=== PATIENT | male | born 1970 | race African-American/Black ===

== ENCOUNTER 2021-02-01 14:47 | Inpatient (IN) | payer OTHER ==
[2021-02-01 15:17] VITALS: BMI 27.1
[2021-02-01] MEDS ORDERED: ACETAMINOPHEN 1000 MG/100 ML VIAL (NON FORMULARY) IVPB ONE (15:26)
[2021-02-01] MEDS ORDERED: VANCOMYCIN 1 GM in D5W (PRE-DOCKED) 1,000 MG/250 ML IVPB ONE (15:37)
[2021-02-01] MEDS ORDERED: PIPERACILLIN/TAZOB 4.5 GM 4.5 GM in DEXTROSE 5%-WATER 100 ML IVPB ONE (15:37)
[2021-02-01] MEDS ORDERED: ACETAMINOPHEN INJECTION 100 ML IVPB ONE (16:01)
[2021-02-01] MEDS: SODIUM CHLORIDE 2,504 ML IV ONE ×2 (16:07→17:04)
[2021-02-01 16:26] LABS: BASO % 0.2 % (0-2.0); HEMATOCRIT 40.8 % (35.4-49); HEMOGLOBIN 14.3 GM/dL (11.7-16.9); LYMPH % 4.4 % (8-40); MCHC 34.9 g/dl (32.0-35.9); MEAN CELL VOLUME 88.7 fl (80-96); MEAN PLT VOLUME 8.8 fl (7.5-11.1); MONO % 5.6 % (3.8-10.2); NEUT % 89.8 % (42.8-82.8); PLATELET COUNT 257 10^3/uL (134-434); RDW 14.6 % (11.9-15.9); WHITE BLOOD COUNT 18.5 K/mm3 (4.0-10.0)
[2021-02-01 16:39] LABS: INR 1.46 (0.83-1.09); PROTHROMBIN TIME (PATIENT) 17.8 SEC (9.7-13.0)
[2021-02-01 16:42] LABS: ACTIVATED PTT 33.3 SECONDS (25.2-36.5)
[2021-02-01 16:52] LABS: ALBUMIN 3.1 g/dl (3.4-5.0)
[2021-02-01 16:57] LABS: BILIRUBIN,TOTAL 1.8 mg/dL (0.2-1); CREATININE 2.2 mg/dL (0.55-1.3)
[2021-02-01] MEDS ORDERED: SODIUM CHLORIDE 0.9% 500 ML INFUS.BAG IV ONE ×2 (16:59→22:48)
[2021-02-01 17:07] LABS: LACTIC ACID 2.8 mmol/L (0.4-2.0)
[2021-02-01] MEDS ORDERED: PIPERACILLIN/TAZOB 4.5 GM 4.5 GM/100 ML BAG IVPB ONE (17:17)
[2021-02-01] MEDS ORDERED: VANCOMYCIN 1 GRAM (PRE-DOCKED) 1,000 MG/250 ML BAG IVPB ONE ×2 (17:18→18:28)
[2021-02-01 19:47] LABS: EPI CELLS 28 /uL (0-25.1); HYALINE CASTS 6 /uL (0-3.1); URINE APPEARANCE TURBID; URINE BACTERIA 7336 /uL (0-1359); URINE BILIRUBIN NEGATIVE (NEGATIVE); URINE COLOR ORANGE; URINE GLUCOSE (UA) NEGATIVE (NEGATIVE); URINE KETONE NEGATIVE (NEGATIVE); URINE LEUK ESTERASE 3+ (NEGATIVE); URINE NITRITE NEGATIVE (NEGATIVE); URINE PROTEIN 2+ (NEGATIVE); URINE RBC 53 /uL (0-23.9); URINE WBC 7008 /uL (0-25.8)
[2021-02-01 20:13] LABS: YEAST NEGATIVE (NEGATIVE)
[2021-02-01 21:19] LABS: ANION GAP 13 MMOL/L (8-16); CALCIUM 7.9 mg/dL (8.5-10.1); CHLORIDE 92 mmol/L (98-107); CO2 20 mmol/L (21-32); SODIUM 126 mmol/L (136-145)
[2021-02-01 21:21] LABS: GLUCOSE,RANDOM 119 mg/dL (74-106)
[2021-02-01] MEDS ORDERED: POTASSIUM CHLORIDE TABS 10 MEQ TABLET.ER (FP) PO ONE (21:44)
[2021-02-01] MEDS ORDERED: POTASSIUM CHLORIDE ORAL LIQUID 20 MEQ/15 ML PO ONE (22:35)
[2021-02-01] MEDS ORDERED: BACLOFEN 10 MG TABLET (FP) PO ONE (22:41)
[2021-02-01] MEDS ORDERED: LORazepam 2 MG/ML SDV VIAL IVPUSH ONE (22:42)
[2021-02-01] MEDS ORDERED: LORazepam 2 MG/ML SDV VIAL ONE (23:00)
[2021-02-01] MEDS ORDERED: POTASSIUM CHLORIDE ORAL LIQUID 20 MEQ/15 ML ONE (23:01)
[2021-02-01] MEDS ORDERED: BACLOFEN 10 MG TABLET (FP) ONE (23:01)
[2021-02-01] MEDS ORDERED: VANCOMYCIN/WATER BAGS 1,250 MG/250 ML BAG IVPB SCH (23:30)
[2021-02-01] MEDS ORDERED: SODIUM CHLORIDE 1,000 ML IV SCH (23:30)
[2021-02-02] MEDS ORDERED: PIPERACILLIN/TAZOB 3.375 GM 3.375 GM/50 ML BAG IVPB ONE ×4 (00:35→21:36)
[2021-02-02] MEDS: PIPERACILLIN/TAZOB 3.375 GM 3.375 GM/50 ML BAG IVPB SCH ×2 (00:41→07:20)
[2021-02-02 00:52] LABS: CHLORIDE 94 mmol/L (98-107); SODIUM 129 mmol/L (136-145)
[2021-02-02 00:54] LABS: ANION GAP 9 MMOL/L (8-16); BLOOD UREA NITROGEN 21.6 mg/dL (7-18); CALCIUM 8.1 mg/dL (8.5-10.1); CO2 26 mmol/L (21-32); MAGNESIUM 1.6 mg/dL (1.8-2.4)
[2021-02-02 00:55] LABS: GLUCOSE,RANDOM 100 mg/dL (74-106)
[2021-02-02 00:58] LABS: CREATININE 1.8 mg/dL (0.55-1.3)
[2021-02-02] MEDS: VANCOMYCIN/WATER BAGS 1,250 MG/250 ML BAG IVPB SCH (01:41)
[2021-02-02] MEDS ORDERED: POTASSIUM CHLORIDE TABS 20 MEQ TABLET.ER (FP) PO ONE ×2 (01:54→07:10)
[2021-02-02] MEDS ORDERED: KCL 10 MEQ IVPB 10 MEQ/100 ML INFUS.BAG IVPB SCH (02:00)
[2021-02-02 02:36] LABS: CHOLESTEROL 122 mg/dL (50-200); TRIGLYCERIDES 76 mg/dL (0-150)
[2021-02-02 02:37] LABS: HDL CHOLESTEROL 35 mg/dL (40-60); LDL CHOLESTEROL (ONLY SJRH) 70 mg/dL (5-100)
[2021-02-02] MEDS ORDERED: ACETAMINOPHEN 1000 MG/100 ML VIAL (NON FORMULARY) IVPB ONE ×2 (03:51→11:01)
[2021-02-02] MEDS ORDERED: ACETAMINOPHEN INJECTION 100 ML IVPB ONE ×2 (04:02→10:08)
[2021-02-02] MEDS ORDERED: POTASSIUM CHLORIDE ORAL LIQUID 20 MEQ/15 ML ONE (04:02)
[2021-02-02] MEDS ORDERED: KCL 10 MEQ IVPB 10 MEQ/100 ML INFUS.BAG IVPB ONE (04:03)
[2021-02-02] MEDS ORDERED: TRIMETHOBENZAMIDE HCL 200MG/2ML INJ IM ONE (05:16)
[2021-02-02] MEDS ORDERED: HEPARIN NA (PORCINE) 5,000 UNITS/ML 1ML VIAL ONE ×3 (07:10→21:36)
[2021-02-02] MEDS: HEPARIN NA (PORCINE) 5,000 UNITS/ML 1ML VIAL SQ SCH ×3 (07:16→22:32)
[2021-02-02 08:18] LABS: HEMATOCRIT 40.2 % (35.4-49); HEMOGLOBIN 13.5 GM/dL (11.7-16.9); MCH 30.2 pg (25.7-33.7); MCHC 33.5 g/dl (32.0-35.9); MEAN CELL VOLUME 90.2 fl (80-96); PLATELET COUNT 209 10^3/uL (134-434); RBC 4.46 M/mm3 (4.00-5.60); RDW 14.7 % (11.9-15.9); WHITE BLOOD COUNT 18.2 K/mm3 (4.0-10.0)
[2021-02-02 08:22] LABS: ALBUMIN 2.6 g/dl (3.4-5.0); BLOOD UREA NITROGEN 21.8 mg/dL (7-18); CALCIUM 8.5 mg/dL (8.5-10.1); MAGNESIUM 1.8 mg/dL (1.8-2.4)
[2021-02-02 08:25] LABS: CREATININE 1.7 mg/dL (0.55-1.3)
[2021-02-02 08:26] LABS: BILIRUBIN,TOTAL 1.6 mg/dL (0.2-1); PHOSPHOROUS 3.5 mg/dL (2.5-4.9)
[2021-02-02 08:27] LABS: TOT PROT 6.8 g/dl (6.4-8.2)
[2021-02-02] MEDS ORDERED: PROCHLORPERAZINE INJECTION 10 MG/2 ML VIAL IVPB ONE (11:01)
[2021-02-02 11:38] LABS: ANISOCYTOSIS 0; MACROCYTOSIS 0; PLATELET ESTIMATE NORMAL
[2021-02-02] MEDS ORDERED: PROCHLORPERAZINE INJECTION 10 MG/2 ML VIAL ONE (12:13)
[2021-02-02] MEDS ORDERED: SODIUM CHLORIDE 1,000 ML IV SCH ×2 (12:30→13:15)
[2021-02-02] MEDS ORDERED: DEXTROSE 5%-WATER - 1,000 ML IV SCH (12:30)
[2021-02-02] MEDS: PIPERACILLIN/TAZOB 3.375 GM 3.375 GM in DEXTROSE 5%-WATER - 50 ML IVPB SCH ×2 (13:01→22:32)
[2021-02-02 13:14] LABS: BLOOD UREA NITROGEN 23.4 mg/dL (7-18); CALCIUM 8.2 mg/dL (8.5-10.1)
[2021-02-02 13:17] LABS: CREATININE 1.5 mg/dL (0.55-1.3)
[2021-02-02] MEDS: SODIUM CHLORIDE 0.45% 1,000 ML IV SCH (13:45)
[2021-02-02] MEDS ORDERED: ASPIRIN COATED 81 MG TABLET.EC ONE (14:43)
[2021-02-02] MEDS: ERGOCALCIFEROL (VIT D2) 50,000 UNIT (1.25 MG) CAPSULE PO SCH (14:56)
[2021-02-02] MEDS: ASPIRIN COATED 81 MG TABLET.EC PO SCH (14:56)
[2021-02-02] MEDS: MIDODRINE HCL 5 MG TABLET PO SCH ×2 (14:57→21:29)
[2021-02-02 18:20] LABS: CALCIUM 8.6 mg/dL (8.5-10.1)
[2021-02-02 18:23] LABS: CREATININE 1.4 mg/dL (0.55-1.3)
[2021-02-02] MEDS ORDERED: ATORVASTATIN CA 40 MG TABLET (FP) ONE (21:36)
[2021-02-02] MEDS ORDERED: BACLOFEN 10 MG TABLET (FP) ONE (21:36)
[2021-02-02] MEDS ORDERED: PATIENT'S OWN MEDICATION (NON-FORMULARY) (Diclofenac Sodium [Voltaren] 100 GM Gel..Gram.) TP SCH (22:00)
[2021-02-02] MEDS ORDERED: BACLOFEN 10 MG TABLET (FP) PO SCH (22:00)
[2021-02-02] MEDS ORDERED: PATIENT'S OWN MEDICATION (NON-FORMULARY) (Midodrine Hcl [Midodrine Hcl] 10 MG) PO SCH (22:00)
[2021-02-02] MEDS ORDERED: PATIENT'S OWN MEDICATION (NON-FORMULARY) (Midodrine Hcl [Midodrine Hcl] 10 MG Tablet) PO SCH (22:00)
[2021-02-02] MEDS: ATORVASTATIN CA 40 MG TABLET (FP) PO SCH (22:32)
[2021-02-02] MEDS: BACLOFEN 10 MG TABLET (FP) PO SCH (22:32)
[2021-02-03] MEDS: PIPERACILLIN/TAZOB 3.375 GM 3.375 GM in DEXTROSE 5%-WATER - 50 ML IVPB SCH ×6 (02:16→20:07)
[2021-02-03] MEDS: VANCOMYCIN/WATER BAGS 1,250 MG/250 ML BAG IVPB SCH ×3 (02:16→10:31)
[2021-02-03] MEDS ORDERED: ACETAMINOPHEN 1000 MG/100 ML VIAL (NON FORMULARY) IVPB ONE (02:51)
[2021-02-03] MEDS ORDERED: PIPERACILLIN/TAZOBACTAM 3.375 GM VIAL IVPB ONE ×5 (03:05→19:26)
[2021-02-03] MEDS ORDERED: DEXTROSE 5%-WATER - 50 ML IVPB ONE ×5 (03:05→19:26)
[2021-02-03] MEDS: HEPARIN NA (PORCINE) 5,000 UNITS/ML 1ML VIAL SQ SCH ×3 (06:25→21:05)
[2021-02-03] MEDS: SIMETHICONE 80 MG TAB.CHEW (FP) PO PRN ×2 (06:49→13:32)
[2021-02-03] MEDS ORDERED: PT OWN MED DRAWER 7, Y5N ONE ×3 (06:54→20:35)
[2021-02-03] MEDS: BACLOFEN 10 MG TABLET (FP) PO SCH ×3 (07:12→21:05)
[2021-02-03 09:06] LABS: ALBUMIN 2.3 g/dl (3.4-5.0); BLOOD UREA NITROGEN 18.2 mg/dL (7-18)
[2021-02-03 09:08] LABS: CALCIUM 8.5 mg/dL (8.5-10.1)
[2021-02-03 09:09] LABS: BILIRUBIN,TOTAL 1.2 mg/dL (0.2-1); CREATININE 1.2 mg/dL (0.55-1.3); TOT PROT 6.3 g/dl (6.4-8.2)
[2021-02-03] MEDS ORDERED: POTASSIUM CHLORIDE TABS 20 MEQ TABLET.ER (FP) PO SCH (10:00)
[2021-02-03] MEDS: ASCORBIC ACID 500 MG TABLET (FP) PO SCH (10:16)
[2021-02-03] MEDS: ASPIRIN COATED 81 MG TABLET.EC PO SCH (10:17)
[2021-02-03] MEDS: MIDODRINE HCL 5 MG TABLET PO SCH ×2 (10:17→13:31)
[2021-02-03] MEDS: KCL 10 MEQ IVPB 10 MEQ/100 ML INFUS.BAG IVPB SCH ×3 (10:29→15:09)
[2021-02-03] MEDS ORDERED: POTASSIUM CHLORIDE TABS 20 MEQ TABLET.ER (FP) PO ONE (10:30)
[2021-02-03] MEDS: FAMOTIDINE 40 MG TABLET PO SCH (12:59)
[2021-02-03] MEDS: SODIUM CHLORIDE 0.45% 1,000 ML IV SCH (13:32)
[2021-02-03] MEDS ORDERED: MIDODRINE HCL 5 MG TABLET PO SCH (16:02)
[2021-02-03] MEDS: LORazepam 0.5 MG TABLET PO PRN (20:55)
[2021-02-03] MEDS ORDERED: MIDODRINE HCL 5 MG TABLET PO ONE (21:00)
[2021-02-03] MEDS: ATORVASTATIN CA 40 MG TABLET (FP) PO SCH (21:05)
[2021-02-04 00:46] LABS: MAGNESIUM 1.9 mg/dL (1.8-2.4)
[2021-02-04 00:50] LABS: PHOSPHOROUS 2.5 mg/dL (2.5-4.9)
[2021-02-04] MEDS ORDERED: PIPERACILLIN/TAZOBACTAM 3.375 GM VIAL IVPB ONE ×4 (01:46→20:36)
[2021-02-04] MEDS ORDERED: DEXTROSE 5%-WATER - 50 ML IVPB ONE ×4 (01:46→20:36)
[2021-02-04] MEDS: PIPERACILLIN/TAZOB 3.375 GM 3.375 GM in DEXTROSE 5%-WATER - 50 ML IVPB SCH ×4 (03:04→20:39)
[2021-02-04] MEDS: HEPARIN NA (PORCINE) 5,000 UNITS/ML 1ML VIAL SQ SCH ×3 (06:31→21:12)
[2021-02-04] MEDS: BACLOFEN 10 MG TABLET (FP) PO SCH ×3 (06:31→21:11)
[2021-02-04] MEDS: MIDODRINE HCL 5 MG TABLET PO SCH ×3 (08:46→20:39)
[2021-02-04] MEDS: AMINO ACIDS/PROTEIN HYDROLYS 30 ML LIQUID.PKT PO SCH (08:46)
[2021-02-04 08:49] LABS: BASO % 0.3 % (0-2.0); EOS % 0.6 % (0-4.5); HEMATOCRIT 32.4 % (35.4-49); LYMPH % 5.3 % (8-40); MCH 30.2 pg (25.7-33.7); MCHC 33.9 g/dl (32.0-35.9); MEAN CELL VOLUME 89.2 fl (80-96); MEAN PLT VOLUME 7.9 fl (7.5-11.1); MONO % 8.4 % (3.8-10.2); NEUT % 85.4 % (42.8-82.8); PLATELET COUNT 218 10^3/uL (134-434); RBC 3.63 M/mm3 (4.00-5.60); RDW 14.5 % (11.9-15.9); WHITE BLOOD COUNT 9.9 K/mm3 (4.0-10.0)
[2021-02-04 09:33] LABS: BILIRUBIN,TOTAL 0.6 mg/dL (0.2-1); BLOOD UREA NITROGEN 8.7 mg/dL (7-18); CREATININE 0.9 mg/dL (0.55-1.3); TOT PROT 5.6 g/dl (6.4-8.2)
[2021-02-04] MEDS ORDERED: PT OWN MED DRAWER 7, Y5N ONE ×3 (09:45→20:38)
[2021-02-04] MEDS: ASCORBIC ACID 500 MG TABLET (FP) PO SCH (09:52)
[2021-02-04] MEDS: ASPIRIN COATED 81 MG TABLET.EC PO SCH (09:52)
[2021-02-04] MEDS: FAMOTIDINE 40 MG TABLET PO SCH (09:52)
[2021-02-04] MEDS ORDERED: POTASSIUM CHLORIDE TABS 20 MEQ TABLET.ER (FP) PO ONE (14:26)
[2021-02-04] MEDS: SODIUM CHLORIDE 1,000 ML IV SCH (17:14)
[2021-02-04] MEDS ORDERED: MIDODRINE HCL 5 MG TABLET PO ONE (20:44)
[2021-02-04] MEDS: ATORVASTATIN CA 40 MG TABLET (FP) PO SCH (21:11)
[2021-02-04] MEDS: SIMETHICONE 80 MG TAB.CHEW (FP) PO PRN (21:15)
[2021-02-05] MEDS ORDERED: DEXTROSE 5%-WATER - 50 ML IVPB ONE ×4 (00:44→20:05)
[2021-02-05] MEDS ORDERED: PIPERACILLIN/TAZOBACTAM 3.375 GM VIAL IVPB ONE ×4 (00:44→20:05)
[2021-02-05] MEDS: PIPERACILLIN/TAZOB 3.375 GM 3.375 GM in DEXTROSE 5%-WATER - 50 ML IVPB SCH ×4 (02:40→20:28)
[2021-02-05] MEDS: LORazepam 0.5 MG TABLET PO PRN ×2 (03:19→21:25)
[2021-02-05] MEDS: BACLOFEN 10 MG TABLET (FP) PO SCH ×3 (06:26→21:24)
[2021-02-05] MEDS: HEPARIN NA (PORCINE) 5,000 UNITS/ML 1ML VIAL SQ SCH ×3 (06:26→21:24)
[2021-02-05] MEDS: SODIUM CHLORIDE 1,000 ML IV SCH ×2 (06:29→13:58)
[2021-02-05 07:19] LABS: HEMOGLOBIN 11.1 GM/dL (11.7-16.9); MCH 29.9 pg (25.7-33.7); MCHC 33.7 g/dl (32.0-35.9); MEAN CELL VOLUME 88.5 fl (80-96); MEAN PLT VOLUME 8.3 fl (7.5-11.1); PLATELET COUNT 255 10^3/uL (134-434); RBC 3.73 M/mm3 (4.00-5.60); RDW 14.6 % (11.9-15.9); WHITE BLOOD COUNT 7.8 K/mm3 (4.0-10.0)
[2021-02-05 07:48] LABS: CALCIUM 7.8 mg/dL (8.5-10.1)
[2021-02-05 07:49] LABS: ALBUMIN 2.1 g/dl (3.4-5.0); BLOOD UREA NITROGEN 6.3 mg/dL (7-18); MAGNESIUM 1.5 mg/dL (1.8-2.4)
[2021-02-05 08:53] LABS: ANISOCYTOSIS 0; HELMET CELLS 0; HOWELL-JOLLY BODIES 0; MACROCYTOSIS 0; OVALOCYTE 0; PLATELET ESTIMATE NORMAL; ROULEAU 0; SICKELED CELLS 0; TARGET CELLS 0; TEAR DROP CELLS 0; TOXIC GRANULATION 0
[2021-02-05] MEDS ORDERED: MAGNESIUM SULF 50% (8.12 MEQ/2 ML-1 GM VIAL) IVPB ONE ×2 (08:56→12:14)
[2021-02-05] MEDS ORDERED: PT OWN MED DRAWER 7, Y5N ONE ×4 (09:26→20:43)
[2021-02-05] MEDS: ASPIRIN COATED 81 MG TABLET.EC PO SCH (09:35)
[2021-02-05] MEDS: MIDODRINE HCL 5 MG TABLET PO SCH ×3 (09:35→20:28)
[2021-02-05] MEDS: ASCORBIC ACID 500 MG TABLET (FP) PO SCH (09:35)
[2021-02-05] MEDS: POTASSIUM CHLORIDE TABS 20 MEQ TABLET.ER (FP) PO SCH ×2 (09:35→21:25)
[2021-02-05] MEDS: FAMOTIDINE 40 MG TABLET PO SCH (09:35)
[2021-02-05] MEDS: AMINO ACIDS/PROTEIN HYDROLYS 30 ML LIQUID.PKT PO SCH (09:37)
[2021-02-05] MEDS: SODIUM CHLORIDE 0.45% 1,000 ML IV SCH (09:48)
[2021-02-05] MEDS ORDERED: MAGNESIUM OXIDE 400 MG TABLET (FP) PO ONE (12:14)
[2021-02-05] MEDS: SIMETHICONE 80 MG TAB.CHEW (FP) PO PRN (21:24)
[2021-02-05] MEDS: ATORVASTATIN CA 40 MG TABLET (FP) PO SCH (21:25)
[2021-02-06] MEDS ORDERED: PIPERACILLIN/TAZOBACTAM 3.375 GM VIAL IVPB ONE ×4 (02:25→21:08)
[2021-02-06] MEDS ORDERED: DEXTROSE 5%-WATER - 50 ML IVPB ONE ×4 (02:25→21:08)
[2021-02-06] MEDS: PIPERACILLIN/TAZOB 3.375 GM 3.375 GM in DEXTROSE 5%-WATER - 50 ML IVPB SCH ×4 (03:10→21:24)
[2021-02-06] MEDS: HEPARIN NA (PORCINE) 5,000 UNITS/ML 1ML VIAL SQ SCH ×3 (06:11→21:24)
[2021-02-06] MEDS: BACLOFEN 10 MG TABLET (FP) PO SCH ×3 (06:11→21:24)
[2021-02-06] MEDS: SODIUM CHLORIDE 1,000 ML IV SCH ×2 (06:11→13:50)
[2021-02-06 06:46] LABS: BASO % 0.5 % (0-2.0); EOS % 3.4 % (0-4.5); HEMATOCRIT 33.5 % (35.4-49); HEMOGLOBIN 11.4 GM/dL (11.7-16.9); LYMPH % 12.7 % (8-40); MCH 30.5 pg (25.7-33.7); MEAN CELL VOLUME 89.5 fl (80-96); MEAN PLT VOLUME 7.7 fl (7.5-11.1); NEUT % 71.4 % (42.8-82.8); PLATELET COUNT 294 10^3/uL (134-434); RBC 3.75 M/mm3 (4.00-5.60); RDW 14.3 % (11.9-15.9); WHITE BLOOD COUNT 7.5 K/mm3 (4.0-10.0)
[2021-02-06 07:15] LABS: CALCIUM 8.3 mg/dL (8.5-10.1)
[2021-02-06 07:16] LABS: ALBUMIN 2.2 g/dl (3.4-5.0); BLOOD UREA NITROGEN 4.7 mg/dL (7-18); MAGNESIUM 1.9 mg/dL (1.8-2.4)
[2021-02-06 07:19] LABS: PHOSPHOROUS 2.7 mg/dL (2.5-4.9)
[2021-02-06 07:20] LABS: BILIRUBIN,TOTAL 0.5 mg/dL (0.2-1); TOT PROT 6.2 g/dl (6.4-8.2)
[2021-02-06] MEDS: MIDODRINE HCL 5 MG TABLET PO SCH ×3 (08:52→21:24)
[2021-02-06] MEDS: AMINO ACIDS/PROTEIN HYDROLYS 30 ML LIQUID.PKT PO SCH (08:52)
[2021-02-06] MEDS: hydrOXYzine PAMOATE 25 MG CAPSULE (FP) PO PRN ×2 (08:53→15:20)
[2021-02-06] MEDS: SIMETHICONE 80 MG TAB.CHEW (FP) PO PRN (08:58)
[2021-02-06] MEDS: ASPIRIN COATED 81 MG TABLET.EC PO SCH (10:30)
[2021-02-06] MEDS: ASCORBIC ACID 500 MG TABLET (FP) PO SCH (10:30)
[2021-02-06] MEDS: FAMOTIDINE 40 MG TABLET PO SCH (10:31)
[2021-02-06] MEDS ORDERED: POTASSIUM CHLORIDE TABS 20 MEQ TABLET.ER (FP) PO ONE (13:25)
[2021-02-06] MEDS ORDERED: LOPERAMIDE HCL 2 MG CAPSULE PO PRN (13:47)
[2021-02-06 16:22] LABS: BLOOD UREA NITROGEN 5.3 mg/dL (7-18); CALCIUM 8.6 mg/dL (8.5-10.1)
[2021-02-06 16:25] LABS: CREATININE 0.9 mg/dL (0.55-1.3)
[2021-02-06] MEDS ORDERED: PT OWN MED DRAWER 7, Y5N ONE (21:08)
[2021-02-06] MEDS: ATORVASTATIN CA 40 MG TABLET (FP) PO SCH (21:24)
[2021-02-06] MEDS: LORazepam 0.5 MG TABLET PO PRN (22:45)
[2021-02-07] MEDS ORDERED: DEXTROSE 5%-WATER - 50 ML IVPB ONE ×4 (02:33→21:01)
[2021-02-07] MEDS ORDERED: PIPERACILLIN/TAZOBACTAM 3.375 GM VIAL IVPB ONE ×4 (02:33→21:01)
[2021-02-07] MEDS: SIMETHICONE 80 MG TAB.CHEW (FP) PO PRN (02:45)
[2021-02-07] MEDS: PIPERACILLIN/TAZOB 3.375 GM 3.375 GM in DEXTROSE 5%-WATER - 50 ML IVPB SCH ×4 (02:45→21:14)
[2021-02-07] MEDS ORDERED: PT OWN MED DRAWER 7, Y5N ONE ×5 (05:32→21:01)
[2021-02-07] MEDS: BACLOFEN 10 MG TABLET (FP) PO SCH ×3 (05:34→21:13)
[2021-02-07] MEDS: HEPARIN NA (PORCINE) 5,000 UNITS/ML 1ML VIAL SQ SCH ×3 (05:34→21:14)
[2021-02-07] MEDS: AMINO ACIDS/PROTEIN HYDROLYS 30 ML LIQUID.PKT PO SCH (08:41)
[2021-02-07] MEDS: MIDODRINE HCL 5 MG TABLET PO SCH ×3 (08:41→21:13)
[2021-02-07 11:04] LABS: BASO % 0.9 % (0-2.0); EOS % 3.9 % (0-4.5); HEMATOCRIT 32.2 % (35.4-49); HEMOGLOBIN 10.8 GM/dL (11.7-16.9); LYMPH % 15.5 % (8-40); MCH 30.6 pg (25.7-33.7); MCHC 33.6 g/dl (32.0-35.9); MEAN CELL VOLUME 91.2 fl (80-96); MEAN PLT VOLUME 7.9 fl (7.5-11.1); MONO % 9.3 % (3.8-10.2); NEUT % 70.4 % (42.8-82.8); PLATELET COUNT 329 10^3/uL (134-434); RBC 3.53 M/mm3 (4.00-5.60); RDW 14.5 % (11.9-15.9); WHITE BLOOD COUNT 7.5 K/mm3 (4.0-10.0)
[2021-02-07] MEDS ORDERED: POTASSIUM CHLORIDE TABS 20 MEQ TABLET.ER (FP) PO ONE (13:15)
[2021-02-07 13:56] LABS: ALBUMIN 2.2 g/dl (3.4-5.0); CALCIUM 8.5 mg/dL (8.5-10.1)
[2021-02-07 13:57] LABS: MAGNESIUM 1.6 mg/dL (1.8-2.4)
[2021-02-07 14:00] LABS: CREATININE 0.9 mg/dL (0.55-1.3); PHOSPHOROUS 2.9 mg/dL (2.5-4.9)
[2021-02-07 14:02] LABS: BILIRUBIN,TOTAL 0.5 mg/dL (0.2-1); TOT PROT 6.5 g/dl (6.4-8.2)
[2021-02-07] MEDS: ASCORBIC ACID 500 MG TABLET (FP) PO SCH (15:14)
[2021-02-07] MEDS: FAMOTIDINE 40 MG TABLET PO SCH (15:14)
[2021-02-07] MEDS: ASPIRIN COATED 81 MG TABLET.EC PO SCH (15:14)
[2021-02-07] MEDS: POTASSIUM CHLORIDE 10 MEQ in SODIUM CHLORIDE 1,000 ML IV SCH (15:15)
[2021-02-07] MEDS: LORazepam 0.5 MG TABLET PO PRN (21:13)
[2021-02-07] MEDS: ATORVASTATIN CA 40 MG TABLET (FP) PO SCH (21:13)
[2021-02-08] MEDS ORDERED: DEXTROSE 5%-WATER - 50 ML IVPB ONE ×4 (02:32→20:51)
[2021-02-08] MEDS ORDERED: PIPERACILLIN/TAZOBACTAM 3.375 GM VIAL IVPB ONE ×4 (02:32→20:51)
[2021-02-08] MEDS: PIPERACILLIN/TAZOB 3.375 GM 3.375 GM in DEXTROSE 5%-WATER - 50 ML IVPB SCH ×4 (02:37→21:05)
[2021-02-08] MEDS ORDERED: PT OWN MED DRAWER 7, Y5N ONE (05:50)
[2021-02-08] MEDS: HEPARIN NA (PORCINE) 5,000 UNITS/ML 1ML VIAL SQ SCH ×3 (07:04→21:06)
[2021-02-08] MEDS: BACLOFEN 10 MG TABLET (FP) PO SCH ×3 (07:04→21:07)
[2021-02-08] MEDS: MIDODRINE HCL 5 MG TABLET PO SCH ×3 (08:49→21:06)
[2021-02-08] MEDS: AMINO ACIDS/PROTEIN HYDROLYS 30 ML LIQUID.PKT PO SCH (08:49)
[2021-02-08] MEDS: ASPIRIN COATED 81 MG TABLET.EC PO SCH (09:16)
[2021-02-08] MEDS: FAMOTIDINE 40 MG TABLET PO SCH (09:17)
[2021-02-08] MEDS: ASCORBIC ACID 500 MG TABLET (FP) PO SCH (09:17)
[2021-02-08 12:19] LABS: EOS % 4.2 % (0-4.5); HEMATOCRIT 31.6 % (35.4-49); HEMOGLOBIN 10.7 GM/dL (11.7-16.9); LYMPH % 19.5 % (8-40); MCHC 33.8 g/dl (32.0-35.9); MEAN CELL VOLUME 88.8 fl (80-96); MEAN PLT VOLUME 7.2 fl (7.5-11.1); NEUT % 64.3 % (42.8-82.8); PLATELET COUNT 403 10^3/uL (134-434); RBC 3.56 M/mm3 (4.00-5.60); RDW 14.4 % (11.9-15.9); WHITE BLOOD COUNT 6.1 K/mm3 (4.0-10.0)
[2021-02-08 12:47] LABS: CALCIUM 8.5 mg/dL (8.5-10.1)
[2021-02-08 12:48] LABS: BLOOD UREA NITROGEN 5.2 mg/dL (7-18); MAGNESIUM 1.5 mg/dL (1.8-2.4)
[2021-02-08 12:51] LABS: CREATININE 0.8 mg/dL (0.55-1.3); PHOSPHOROUS 2.8 mg/dL (2.5-4.9)
[2021-02-08] MEDS ORDERED: MAGNESIUM SULF 50% (8.12 MEQ/2 ML-1 GM VIAL) IVPB ONE (13:15)
[2021-02-08] MEDS: SIMETHICONE 80 MG TAB.CHEW (FP) PO PRN (21:07)
[2021-02-08] MEDS: ATORVASTATIN CA 40 MG TABLET (FP) PO SCH ×2 (21:07→21:38)
[2021-02-08] MEDS: LORazepam 0.5 MG TABLET PO PRN (21:11)
[2021-02-09] MEDS ORDERED: PIPERACILLIN/TAZOBACTAM 3.375 GM VIAL IVPB ONE ×4 (00:59→21:05)
[2021-02-09] MEDS ORDERED: DEXTROSE 5%-WATER - 50 ML IVPB ONE ×4 (01:00→21:05)
[2021-02-09] MEDS: POTASSIUM CHLORIDE 10 MEQ in SODIUM CHLORIDE 1,000 ML IV SCH ×2 (02:08→06:03)
[2021-02-09] MEDS: PIPERACILLIN/TAZOB 3.375 GM 3.375 GM in DEXTROSE 5%-WATER - 50 ML IVPB SCH ×4 (02:16→21:10)
[2021-02-09] MEDS: HEPARIN NA (PORCINE) 5,000 UNITS/ML 1ML VIAL SQ SCH ×3 (06:17→21:10)
[2021-02-09] MEDS: BACLOFEN 10 MG TABLET (FP) PO SCH ×3 (06:18→21:11)
[2021-02-09 07:06] LABS: HEMATOCRIT 32.4 % (35.4-49); MCH 30.4 pg (25.7-33.7); MCHC 34.1 g/dl (32.0-35.9); MEAN PLT VOLUME 7.1 fl (7.5-11.1); PLATELET COUNT 457 10^3/uL (134-434); RBC 3.64 M/mm3 (4.00-5.60); RDW 14.7 % (11.9-15.9); WHITE BLOOD COUNT 7.6 K/mm3 (4.0-10.0)
[2021-02-09 07:23] LABS: BLOOD UREA NITROGEN 4.9 mg/dL (7-18); CALCIUM 8.1 mg/dL (8.5-10.1); MAGNESIUM 1.9 mg/dL (1.8-2.4)
[2021-02-09 07:26] LABS: CREATININE 0.7 mg/dL (0.55-1.3)
[2021-02-09 07:27] LABS: PHOSPHOROUS 3.6 mg/dL (2.5-4.9)
[2021-02-09] MEDS ORDERED: KCL 10 MEQ IVPB 10 MEQ/100 ML INFUS.BAG IVPB SCH (08:15)
[2021-02-09 08:39] LABS: ANISOCYTOSIS 0; HELMET CELLS 0; HOWELL-JOLLY BODIES 0; MACROCYTOSIS 0; OVALOCYTE 0; PLATELET ESTIMATE NORMAL; ROULEAU 0; SICKELED CELLS 0; TARGET CELLS 0; TEAR DROP CELLS 0; TOXIC GRANULATION 0
[2021-02-09] MEDS ORDERED: PT OWN MED DRAWER 7, Y5N ONE ×2 (09:21→14:40)
[2021-02-09] MEDS: AMINO ACIDS/PROTEIN HYDROLYS 30 ML LIQUID.PKT PO SCH (09:27)
[2021-02-09] MEDS: MIDODRINE HCL 5 MG TABLET PO SCH ×3 (09:28→21:09)
[2021-02-09] MEDS: ASPIRIN COATED 81 MG TABLET.EC PO SCH (09:28)
[2021-02-09] MEDS: ASCORBIC ACID 500 MG TABLET (FP) PO SCH (09:29)
[2021-02-09] MEDS: ERGOCALCIFEROL (VIT D2) 50,000 UNIT (1.25 MG) CAPSULE PO SCH (09:38)
[2021-02-09] MEDS: FAMOTIDINE 40 MG TABLET PO SCH (09:38)
[2021-02-09] MEDS ORDERED: POTASSIUM CHLORIDE TABS 20 MEQ TABLET.ER (FP) PO ONE (10:15)
[2021-02-09] MEDS: COLLAGENASE CLOSTRIDIUM HIST. 30 GRAMS TUBE TP SCH (14:57)
[2021-02-09] MEDS: ATORVASTATIN CA 40 MG TABLET (FP) PO SCH (21:11)
[2021-02-09] MEDS: LORazepam 0.5 MG TABLET PO PRN (21:11)
[2021-02-10] MEDS ORDERED: DEXTROSE 5%-WATER - 50 ML IVPB ONE ×4 (02:01→21:19)
[2021-02-10] MEDS ORDERED: PIPERACILLIN/TAZOBACTAM 3.375 GM VIAL IVPB ONE ×4 (02:01→21:19)
[2021-02-10] MEDS: PIPERACILLIN/TAZOB 3.375 GM 3.375 GM in DEXTROSE 5%-WATER - 50 ML IVPB SCH ×4 (02:09→21:43)
[2021-02-10] MEDS: HEPARIN NA (PORCINE) 5,000 UNITS/ML 1ML VIAL SQ SCH ×3 (06:23→21:44)
[2021-02-10 06:59] LABS: HEMATOCRIT 32.4 % (35.4-49); HEMOGLOBIN 10.8 GM/dL (11.7-16.9); MCH 29.5 pg (25.7-33.7); MCHC 33.4 g/dl (32.0-35.9); MEAN CELL VOLUME 88.3 fl (80-96); MEAN PLT VOLUME 6.8 fl (7.5-11.1); PLATELET COUNT 482 10^3/uL (134-434); RBC 3.67 M/mm3 (4.00-5.60); RDW 14.9 % (11.9-15.9); WHITE BLOOD COUNT 8.8 K/mm3 (4.0-10.0)
[2021-02-10] MEDS: BACLOFEN 10 MG TABLET (FP) PO SCH ×3 (07:01→21:44)
[2021-02-10 07:02] LABS: BLOOD UREA NITROGEN 8.9 mg/dL (7-18); CALCIUM 8.8 mg/dL (8.5-10.1)
[2021-02-10 07:03] LABS: MAGNESIUM 1.9 mg/dL (1.8-2.4)
[2021-02-10 07:05] LABS: PHOSPHOROUS 3.8 mg/dL (2.5-4.9)
[2021-02-10] MEDS ORDERED: REGADENOSON 0.4 MG/5 ML PRE-FILLED SYRINGE IVPUSH ONE (08:05)
[2021-02-10 08:35] LABS: ANISOCYTOSIS 0; HELMET CELLS 0; HOWELL-JOLLY BODIES 0; MACROCYTOSIS 0; OVALOCYTE 0; PLATELET ESTIMATE NORMAL; ROULEAU 0; SICKELED CELLS 0; TARGET CELLS 0; TEAR DROP CELLS 0; TOXIC GRANULATION 0
[2021-02-10] MEDS ORDERED: PT OWN MED DRAWER 7, Y5N ONE ×3 (09:12→21:18)
[2021-02-10] MEDS: ASCORBIC ACID 500 MG TABLET (FP) PO SCH (09:19)
[2021-02-10] MEDS: ASPIRIN COATED 81 MG TABLET.EC PO SCH (09:19)
[2021-02-10] MEDS: FAMOTIDINE 40 MG TABLET PO SCH (09:19)
[2021-02-10] MEDS: MIDODRINE HCL 5 MG TABLET PO SCH ×3 (09:19→21:42)
[2021-02-10] MEDS: AMINO ACIDS/PROTEIN HYDROLYS 30 ML LIQUID.PKT PO SCH (09:20)
[2021-02-10] MEDS: COLLAGENASE CLOSTRIDIUM HIST. 30 GRAMS TUBE TP SCH (15:15)
[2021-02-10] MEDS: ATORVASTATIN CA 40 MG TABLET (FP) PO SCH (21:57)
[2021-02-11] MEDS ORDERED: PIPERACILLIN/TAZOBACTAM 3.375 GM VIAL IVPB ONE ×4 (01:07→21:31)
[2021-02-11] MEDS ORDERED: DEXTROSE 5%-WATER - 50 ML IVPB ONE ×4 (01:08→21:31)
[2021-02-11] MEDS: PIPERACILLIN/TAZOB 3.375 GM 3.375 GM in DEXTROSE 5%-WATER - 50 ML IVPB SCH ×4 (02:10→21:48)
[2021-02-11] MEDS: HEPARIN NA (PORCINE) 5,000 UNITS/ML 1ML VIAL SQ SCH ×3 (06:52→21:49)
[2021-02-11] MEDS: BACLOFEN 10 MG TABLET (FP) PO SCH ×3 (06:52→21:49)
[2021-02-11 07:09] LABS: HEMATOCRIT 33.5 % (35.4-49); HEMOGLOBIN 11.4 GM/dL (11.7-16.9); MCH 30.4 pg (25.7-33.7); MCHC 34.1 g/dl (32.0-35.9); MEAN CELL VOLUME 89.3 fl (80-96); MEAN PLT VOLUME 6.9 fl (7.5-11.1); PLATELET COUNT 526 10^3/uL (134-434); RBC 3.75 M/mm3 (4.00-5.60); RDW 14.5 % (11.9-15.9); WHITE BLOOD COUNT 10.8 K/mm3 (4.0-10.0)
[2021-02-11 07:22] LABS: BLOOD UREA NITROGEN 8.8 mg/dL (7-18); MAGNESIUM 1.9 mg/dL (1.8-2.4)
[2021-02-11 07:25] LABS: CREATININE 0.9 mg/dL (0.55-1.3); PHOSPHOROUS 3.7 mg/dL (2.5-4.9)
[2021-02-11] MEDS: COLLAGENASE CLOSTRIDIUM HIST. 30 GRAMS TUBE TP SCH (09:46)
[2021-02-11 09:51] LABS: ANISOCYTOSIS 0; MACROCYTOSIS 0; PLATELET ESTIMATE NORMAL
[2021-02-11] MEDS ORDERED: REGADENOSON 0.4 MG/5 ML PRE-FILLED SYRINGE IVPUSH ONE ×2 (11:00→11:18)
[2021-02-11] MEDS: MIDODRINE HCL 5 MG TABLET PO SCH ×3 (14:16→20:43)
[2021-02-11] MEDS: ASPIRIN COATED 81 MG TABLET.EC PO SCH (14:16)
[2021-02-11] MEDS: FAMOTIDINE 40 MG TABLET PO SCH (14:16)
[2021-02-11] MEDS: AMINO ACIDS/PROTEIN HYDROLYS 30 ML LIQUID.PKT PO SCH ×2 (14:17→14:44)
[2021-02-11] MEDS: ASCORBIC ACID 500 MG TABLET (FP) PO SCH (14:17)
[2021-02-11] MEDS ORDERED: PT OWN MED DRAWER 7, Y5N ONE ×2 (17:55→21:30)
[2021-02-11] MEDS: ATORVASTATIN CA 40 MG TABLET (FP) PO SCH (21:49)
[2021-02-12] MEDS ORDERED: PIPERACILLIN/TAZOBACTAM 3.375 GM VIAL IVPB ONE ×4 (01:53→21:13)
[2021-02-12] MEDS ORDERED: DEXTROSE 5%-WATER - 50 ML IVPB ONE ×4 (01:53→21:14)
[2021-02-12] MEDS: PIPERACILLIN/TAZOB 3.375 GM 3.375 GM in DEXTROSE 5%-WATER - 50 ML IVPB SCH ×4 (02:07→21:16)
[2021-02-12] MEDS: BACLOFEN 10 MG TABLET (FP) PO SCH ×3 (06:44→21:16)
[2021-02-12] MEDS: HEPARIN NA (PORCINE) 5,000 UNITS/ML 1ML VIAL SQ SCH ×3 (06:44→21:18)
[2021-02-12] MEDS: MIDODRINE HCL 5 MG TABLET PO SCH ×3 (08:52→21:16)
[2021-02-12] MEDS: AMINO ACIDS/PROTEIN HYDROLYS 30 ML LIQUID.PKT PO SCH (08:53)
[2021-02-12] MEDS ORDERED: PT OWN MED DRAWER 7, Y5N ONE ×3 (09:02→21:13)
[2021-02-12] MEDS: ASPIRIN COATED 81 MG TABLET.EC PO SCH (09:13)
[2021-02-12] MEDS: FAMOTIDINE 40 MG TABLET PO SCH (09:13)
[2021-02-12] MEDS: ASCORBIC ACID 500 MG TABLET (FP) PO SCH (09:13)
[2021-02-12] MEDS: COLLAGENASE CLOSTRIDIUM HIST. 30 GRAMS TUBE TP SCH (09:14)
[2021-02-12] MEDS ORDERED: SODIUM CHLORIDE 250 ML IV STA (09:51)
[2021-02-12 12:05] LABS: BASO % 0.6 % (0-2.0); EOS % 1.1 % (0-4.5); HEMATOCRIT 33.4 % (35.4-49); HEMOGLOBIN 11.5 GM/dL (11.7-16.9); LYMPH % 13.1 % (8-40); MCH 30.6 pg (25.7-33.7); MCHC 34.3 g/dl (32.0-35.9); MEAN CELL VOLUME 89.2 fl (80-96); MEAN PLT VOLUME 6.6 fl (7.5-11.1); MONO % 5.9 % (3.8-10.2); NEUT % 79.3 % (42.8-82.8); PLATELET COUNT 485 10^3/uL (134-434); RBC 3.75 M/mm3 (4.00-5.60); RDW 14.8 % (11.9-15.9); WHITE BLOOD COUNT 8.7 K/mm3 (4.0-10.0)
[2021-02-12 12:27] LABS: BLOOD UREA NITROGEN 8.4 mg/dL (7-18)
[2021-02-12 12:28] LABS: CALCIUM 8.8 mg/dL (8.5-10.1); MAGNESIUM 1.9 mg/dL (1.8-2.4)
[2021-02-12 12:30] LABS: CREATININE 0.8 mg/dL (0.55-1.3)
[2021-02-12 12:31] LABS: PHOSPHOROUS 2.5 mg/dL (2.5-4.9)
[2021-02-12] MEDS: ATORVASTATIN CA 40 MG TABLET (FP) PO SCH ×2 (21:18→21:28)
[2021-02-13] MEDS ORDERED: PIPERACILLIN/TAZOBACTAM 3.375 GM VIAL IVPB ONE ×4 (02:52→20:26)
[2021-02-13] MEDS ORDERED: DEXTROSE 5%-WATER - 50 ML IVPB ONE ×4 (02:52→20:26)
[2021-02-13] MEDS: PIPERACILLIN/TAZOB 3.375 GM 3.375 GM in DEXTROSE 5%-WATER - 50 ML IVPB SCH ×4 (03:19→21:24)
[2021-02-13] MEDS ORDERED: PT OWN MED DRAWER 7, Y5N ONE ×4 (06:37→21:05)
[2021-02-13] MEDS: HEPARIN NA (PORCINE) 5,000 UNITS/ML 1ML VIAL SQ SCH ×3 (06:38→21:24)
[2021-02-13] MEDS: BACLOFEN 10 MG TABLET (FP) PO SCH ×3 (06:39→21:25)
[2021-02-13 07:27] LABS: CALCIUM 8.9 mg/dL (8.5-10.1)
[2021-02-13 07:28] LABS: ALBUMIN 2.5 g/dl (3.4-5.0); BLOOD UREA NITROGEN 8.2 mg/dL (7-18)
[2021-02-13 07:29] LABS: BASO % 0.6 % (0-2.0); EOS % 1.2 % (0-4.5); HEMOGLOBIN 10.8 GM/dL (11.7-16.9); MCH 30.1 pg (25.7-33.7); MCHC 33.6 g/dl (32.0-35.9); MEAN CELL VOLUME 89.4 fl (80-96); MEAN PLT VOLUME 6.9 fl (7.5-11.1); MONO % 7.3 % (3.8-10.2); NEUT % 74.9 % (42.8-82.8); PLATELET COUNT 480 10^3/uL (134-434); RBC 3.58 M/mm3 (4.00-5.60); RDW 14.6 % (11.9-15.9); WHITE BLOOD COUNT 8.4 K/mm3 (4.0-10.0)
[2021-02-13 07:31] LABS: CREATININE 0.9 mg/dL (0.55-1.3)
[2021-02-13 07:33] LABS: BILIRUBIN,TOTAL 0.6 mg/dL (0.2-1); TOT PROT 7.3 g/dl (6.4-8.2)
[2021-02-13] MEDS: MIDODRINE HCL 5 MG TABLET PO SCH ×3 (09:21→20:32)
[2021-02-13] MEDS: FAMOTIDINE 40 MG TABLET PO SCH (09:21)
[2021-02-13] MEDS: ASCORBIC ACID 500 MG TABLET (FP) PO SCH (09:21)
[2021-02-13] MEDS: AMINO ACIDS/PROTEIN HYDROLYS 30 ML LIQUID.PKT PO SCH (09:21)
[2021-02-13] MEDS: COLLAGENASE CLOSTRIDIUM HIST. 30 GRAMS TUBE TP SCH (09:21)
[2021-02-13] MEDS: ASPIRIN COATED 81 MG TABLET.EC PO SCH (09:21)
[2021-02-13] MEDS: ATORVASTATIN CA 40 MG TABLET (FP) PO SCH (21:25)
[2021-02-14] MEDS ORDERED: DEXTROSE 5%-WATER - 50 ML IVPB ONE ×3 (01:46→15:51)
[2021-02-14] MEDS ORDERED: PIPERACILLIN/TAZOBACTAM 3.375 GM VIAL IVPB ONE ×3 (01:46→15:51)
[2021-02-14] MEDS: PIPERACILLIN/TAZOB 3.375 GM 3.375 GM in DEXTROSE 5%-WATER - 50 ML IVPB SCH ×4 (02:04→21:39)
[2021-02-14] MEDS ORDERED: PT OWN MED DRAWER 7, Y5N ONE ×4 (06:50→21:18)
[2021-02-14] MEDS: MIDODRINE HCL 5 MG TABLET PO SCH ×3 (07:00→19:52)
[2021-02-14] MEDS: BACLOFEN 10 MG TABLET (FP) PO SCH ×3 (07:00→21:20)
[2021-02-14 07:32] LABS: BASO % 0.5 % (0-2.0); EOS % 1.1 % (0-4.5); HEMATOCRIT 33.7 % (35.4-49); HEMOGLOBIN 11.3 GM/dL (11.7-16.9); LYMPH % 14.6 % (8-40); MCH 29.8 pg (25.7-33.7); MCHC 33.7 g/dl (32.0-35.9); MEAN CELL VOLUME 88.7 fl (80-96); MEAN PLT VOLUME 6.7 fl (7.5-11.1); MONO % 7.1 % (3.8-10.2); NEUT % 76.7 % (42.8-82.8); PLATELET COUNT 476 10^3/uL (134-434); WHITE BLOOD COUNT 7.8 K/mm3 (4.0-10.0)
[2021-02-14 07:43] LABS: BLOOD UREA NITROGEN 11.1 mg/dL (7-18); CALCIUM 9.1 mg/dL (8.5-10.1); MAGNESIUM 1.9 mg/dL (1.8-2.4)
[2021-02-14 07:46] LABS: CREATININE 0.8 mg/dL (0.55-1.3)
[2021-02-14 07:47] LABS: PHOSPHOROUS 3.2 mg/dL (2.5-4.9)
[2021-02-14] MEDS: AMINO ACIDS/PROTEIN HYDROLYS 30 ML LIQUID.PKT PO SCH (07:59)
[2021-02-14] MEDS ORDERED: REGADENOSON 0.4 MG/5 ML PRE-FILLED SYRINGE IVPUSH ONE ×2 (09:56→10:15)
[2021-02-14] MEDS: ASPIRIN COATED 81 MG TABLET.EC PO SCH (12:32)
[2021-02-14] MEDS: FAMOTIDINE 40 MG TABLET PO SCH (12:33)
[2021-02-14] MEDS: COLLAGENASE CLOSTRIDIUM HIST. 30 GRAMS TUBE TP SCH (12:33)
[2021-02-14] MEDS: ASCORBIC ACID 500 MG TABLET (FP) PO SCH (12:34)
[2021-02-14] MEDS: ATORVASTATIN CA 40 MG TABLET (FP) PO SCH (21:20)
[2021-02-14] MEDS: HEPARIN NA (PORCINE) 5,000 UNITS/ML 1ML VIAL SQ SCH (21:20)
[2021-02-15 00:54] VITALS: BP 112/65; PULSE 98; TEMP 98.4
[2021-02-15] MEDS: PIPERACILLIN/TAZOB 3.375 GM 3.375 GM in DEXTROSE 5%-WATER - 50 ML IVPB SCH (04:21)
== END 2021-02-15 06:00 | disposition home or self-care (01) | DRG 720 ==
LOC: JER 14:47 → JERBED 21:15 → J4S 02-03 00:06
PROVIDERS: ADMIT Internal Medicine; ATTEND Internal Medicine
DX: A41.59 Other Gram-negative sepsis (principal); E87.2 Acidosis; I24.8 Other forms of acute ischemic heart disease; L89.324 Pressure ulcer of left buttock, stage 4; N17.9 Acute kidney failure, unspecified; R64 Cachexia; G82.20 Paraplegia, unspecified; L89.151 Pressure ulcer of sacral region, stage 1; I47.2 Ventricular tachycardia; E11.22 Type 2 diabetes mellitus with diabetic chronic kidney disease; E87.1 Hypo-osmolality and hyponatremia; I27.20 Pulmonary hypertension, unspecified; I48.92 Unspecified atrial flutter; M34.1 CR(E)ST syndrome; D72.829 Elevated white blood cell count, unspecified; E07.9 Disorder of thyroid, unspecified; E87.6 Hypokalemia; F02.80 Dementia in other diseases classified elsewhere, unspecified severity, without behavioral disturbance, psychotic disturbance, mood disturbance, and anxiety; G31.83 Neurocognitive disorder with Lewy bodies; G89.29 Other chronic pain; N13.6 Pyonephrosis; N18.9 Chronic kidney disease, unspecified; R53.83 Other fatigue; E83.42 Hypomagnesemia; E86.0 Dehydration; I95.9 Hypotension, unspecified; I48.19 Other persistent atrial fibrillation; N39.0 Urinary tract infection, site not specified; I25.119 Atherosclerotic heart disease of native coronary artery with unspecified angina pectoris; D64.9 Anemia, unspecified; E87.70 Fluid overload, unspecified; F41.8 Other specified anxiety disorders
CPT/HCPCS: 36415; 70450-TC; 71045-TC-FY; 74177-TC; 76775-TC; 78452-TC; 80048; 80053; 80061; 81003; 82550; 82553; 82962; 83036; 83605; 83735; 83880; 84100; 84439; 84443; 84481; 84484; 85025; 85610; 85730; 87040; 87070; 87086; 87186; 87205; 87324; 87449; 93005; 93010; 93017; 93306-TC; 99291; 99292; A9502; C9803; J0131; J0475; J1644; J2785; Q9967; U0003; U0005

== ENCOUNTER 2021-05-15 11:01 | Inpatient (IN) | payer OTHER ==
[2021-05-15] MEDS ORDERED: SODIUM CHLORIDE 2,313 ML IV ONE (11:35)
[2021-05-15] MEDS ORDERED: ACETAMINOPHEN 1000 MG/100 ML BAG IVPB ONE (12:09)
[2021-05-15] MEDS ORDERED: VANCOMYCIN 1 GM in D5W (PRE-DOCKED) 1,000 MG/250 ML IVPB ONE (12:09)
[2021-05-15] MEDS ORDERED: PIPERACILLIN/TAZOB 4.5 GM 4.5 GM in DEXTROSE 5%-WATER 100 ML IVPB ONE (12:09)
[2021-05-15] MEDS ORDERED: PIPERACILLIN/TAZOB 4.5 GM 4.5 GM/100 ML BAG IVPB ONE (13:11)
[2021-05-15] MEDS ORDERED: ACETAMINOPHEN INJECTION 100 ML IVPB ONE (13:11)
[2021-05-15] MEDS ORDERED: VANCOMYCIN 1 GRAM (PRE-DOCKED) 1,000 MG/250 ML BAG IVPB ONE (13:12)
[2021-05-15 13:36] LABS: VENOUS BASE EXCESS 1.8 mmol/L (-2-2); VENOUS O2 SATURATION 65.8 % (70-80); VENOUS PCO2 44.2 mmHg (38-52); VENOUS PH 7.403 (7.310-7.410)
[2021-05-15 13:37] LABS: BASO % 0.1 % (0-2.0); HEMATOCRIT 39.5 % (35.4-49); HEMOGLOBIN 13.6 GM/dL (11.7-16.9); LYMPH % 3.5 % (8-40); MCH 30.8 pg (25.7-33.7); MCHC 34.4 g/dl (32.0-35.9); MEAN CELL VOLUME 89.4 fl (80-96); MEAN PLT VOLUME 7.5 fl (7.5-11.1); NEUT % 86.4 % (42.8-82.8); PLATELET COUNT 299 10^3/uL (134-434); RBC 4.42 M/mm3 (4.00-5.60); RDW 13.4 % (11.9-15.9); WHITE BLOOD COUNT 6.8 K/mm3 (4.0-10.0)
[2021-05-15 13:48] LABS: INR 1.21 (0.83-1.09); PROTHROMBIN TIME (PATIENT) 14.2 SEC (9.7-13.0)
[2021-05-15 13:50] LABS: ACTIVATED PTT 37.9 SECONDS (25.2-36.5)
[2021-05-15 13:53] LABS: CHLORIDE 101 mmol/L (98-107); SODIUM 141 mmol/L (136-145)
[2021-05-15 13:56] LABS: ALBUMIN 3.4 g/dl (3.4-5.0); ANION GAP 12 MMOL/L (8-16); BLOOD UREA NITROGEN 9.4 mg/dL (7-18); CO2 27 mmol/L (21-32); GLUCOSE,RANDOM 131 mg/dL (74-106)
[2021-05-15 13:59] LABS: CREATININE 0.9 mg/dL (0.55-1.3); SGOT/AST 16 U/L (15-37); SGPT/ALT 14 U/L (13-61)
[2021-05-15 14:00] LABS: BILIRUBIN,TOTAL 0.6 mg/dL (0.2-1); TOT PROT 8.4 g/dl (6.4-8.2)
[2021-05-15 14:01] LABS: ALK PHOS 99 U/L (45-117)
[2021-05-15 14:03] LABS: LACTIC ACID 2.2 mmol/L (0.4-2.0)
[2021-05-15] MEDS ORDERED: MIDODRINE HCL 5 MG TABLET PO ONE ×2 (14:06→20:30)
[2021-05-15 14:24] LABS: EPI CELLS 4 /uL (0-25.1); HYALINE CASTS 0 /uL (0-3.1); URINE APPEARANCE CLOUDY; URINE BACTERIA >9,000 /uL (0-1359); URINE BILIRUBIN NEGATIVE (NEGATIVE); URINE COLOR YELLOW; URINE GLUCOSE (UA) NEGATIVE (NEGATIVE); URINE KETONE NEGATIVE (NEGATIVE); URINE LEUK ESTERASE 2+ (NEGATIVE); URINE NITRITE NEGATIVE (NEGATIVE); URINE PROTEIN 1+ (NEGATIVE); URINE RBC 37 /uL (0-23.9); URINE WBC 1501 /uL (0-25.8)
[2021-05-15 15:09] LABS: MAGNESIUM 2.3 mg/dL (1.8-2.4)
[2021-05-15] MEDS ORDERED: LORazepam 0.5 MG TABLET PO PRN (15:43)
[2021-05-15] MEDS ORDERED: POTASSIUM CHLORIDE ORAL LIQUID 20 MEQ/15 ML PO ONE (15:55)
[2021-05-15] MEDS: SODIUM CHLORIDE 0.9%/KCL 20 MEQ/1,000 ML INFUS.BAG IV SCH (15:55)
[2021-05-15] MEDS ORDERED: POTASSIUM CHLORIDE ORAL LIQUID 20 MEQ/15 ML ONE (16:38)
[2021-05-15] MEDS ORDERED: DEXAMETHASONE SOD PHOSPHATE 10 MG/1 ML VIAL IVPUSH ONE (16:46)
[2021-05-15] MEDS ORDERED: DEXAMETHASONE SOD PHOSPHATE 10 MG/1 ML VIAL ONE (17:23)
[2021-05-15] MEDS ORDERED: BACLOFEN 10 MG TABLET (FP) ONE ×2 (17:24→21:09)
[2021-05-15] MEDS: BACLOFEN 10 MG TABLET (FP) PO SCH ×2 (18:01→21:27)
[2021-05-16] MEDS ORDERED: FAMOTIDINE 20 MG TABLET ONE (08:34)
[2021-05-16] MEDS ORDERED: ASCORBIC ACID 500 MG TABLET (FP) ONE (08:34)
[2021-05-16] MEDS ORDERED: BACLOFEN 10 MG TABLET (FP) ONE ×4 (08:34→21:47)
[2021-05-16] MEDS ORDERED: ENOXAPARIN NA (PORCINE) 40 MG/0.4 ML DISP.SYRIN SQ ONE (08:34)
[2021-05-16] MEDS: POTASSIUM CHLORIDE TABS 20 MEQ TABLET.ER (FP) PO SCH ×2 (09:02→15:07)
[2021-05-16] MEDS: FAMOTIDINE 40 MG TABLET PO SCH (09:28)
[2021-05-16] MEDS: ASCORBIC ACID 500 MG TABLET (FP) PO SCH (09:28)
[2021-05-16] MEDS: ENOXAPARIN NA (PORCINE) 40 MG/0.4 ML DISP.SYRIN SQ SCH (09:28)
[2021-05-16] MEDS: BACLOFEN 10 MG TABLET (FP) PO SCH ×5 (09:28→22:01)
[2021-05-16] MEDS ORDERED: POTASSIUM CHLORIDE 20 MEQ PO SCH (10:00)
[2021-05-16] MEDS ORDERED: CEFTRIAXONE 1 GM in DEXTROSE 5%-WATER - 50 ML IVPB SCH (10:00)
[2021-05-16] MEDS ORDERED: POTASSIUM CHLORIDE TABS 20 MEQ TABLET.ER (FP) PO SCH (10:00)
[2021-05-16] MEDS ORDERED: PATIENT'S OWN MEDICATION (NON-FORMULARY) (Famotidine 40 MG Tablet) PO SCH (10:00)
[2021-05-16] MEDS ORDERED: DEXAMETHASONE SOD PHOSPHATE 10 MG/1 ML VIAL ONE (12:42)
[2021-05-16] MEDS ORDERED: ERTAPENEM SODIUM 1 GM VIAL ONE (12:43)
[2021-05-16] MEDS: ERTAPENEM SODIUM 1 GM in SODIUM CHLORIDE 50 ML IVPB SCH (13:00)
[2021-05-16] MEDS: DEXAMETHASONE SOD PHOSPHATE 10 MG/1 ML VIAL IVPUSH SCH (13:00)
[2021-05-16] MEDS ORDERED: PT OWN MED DRAWER 7, Y5N ONE ×2 (13:06→13:07)
[2021-05-16] MEDS: MIDODRINE HCL 5 MG TABLET PO SCH ×3 (14:05→19:34)
[2021-05-16] MEDS ORDERED: REMDESIVIR 200 MG in SODIUM CHLORIDE 250 ML IVPB ONE (16:00)
[2021-05-16] MEDS: SODIUM CHLORIDE 0.9%/KCL 20 MEQ/1,000 ML INFUS.BAG IV SCH (16:26)
[2021-05-16 22:26] LABS: HEMATOCRIT 35.3 % (35.4-49); HEMOGLOBIN 12.1 GM/dL (11.7-16.9); MCH 30.7 pg (25.7-33.7); MCHC 34.2 g/dl (32.0-35.9); MEAN CELL VOLUME 89.9 fl (80-96); MEAN PLT VOLUME 7.8 fl (7.5-11.1); PLATELET COUNT 257 10^3/uL (134-434); RBC 3.93 M/mm3 (4.00-5.60); RDW 13.3 % (11.9-15.9); WHITE BLOOD COUNT 5.3 K/mm3 (4.0-10.0)
[2021-05-16 22:47] LABS: CALCIUM 8.8 mg/dL (8.5-10.1)
[2021-05-16 22:48] LABS: ALBUMIN 2.8 g/dl (3.4-5.0); BLOOD UREA NITROGEN 6.8 mg/dL (7-18)
[2021-05-16 22:51] LABS: CREATININE 0.7 mg/dL (0.55-1.3)
[2021-05-16 22:53] LABS: BILIRUBIN,TOTAL 1.1 mg/dL (0.2-1); TOT PROT 7.4 g/dl (6.4-8.2)
[2021-05-16 23:40] LABS: ANISOCYTOSIS 1+; MACROCYTOSIS 0; PLATELET ESTIMATE NORMAL; TEAR DROP CELLS 1+
[2021-05-17] MEDS: MIDODRINE HCL 5 MG TABLET PO SCH ×6 (00:38→18:19)
[2021-05-17 08:55] LABS: BASO % 0.1 % (0-2.0); HEMATOCRIT 37.8 % (35.4-49); HEMOGLOBIN 12.4 GM/dL (11.7-16.9); LYMPH % 12.7 % (8-40); MCH 29.9 pg (25.7-33.7); MCHC 32.9 g/dl (32.0-35.9); MEAN CELL VOLUME 90.9 fl (80-96); MEAN PLT VOLUME 7.9 fl (7.5-11.1); MONO % 8.9 % (3.8-10.2); NEUT % 78.3 % (42.8-82.8); PLATELET COUNT 271 10^3/uL (134-434); RBC 4.16 M/mm3 (4.00-5.60); RDW 13.4 % (11.9-15.9); WHITE BLOOD COUNT 3.9 K/mm3 (4.0-10.0)
[2021-05-17 09:18] LABS: CALCIUM 8.9 mg/dL (8.5-10.1)
[2021-05-17 09:19] LABS: ALBUMIN 2.8 g/dl (3.4-5.0); BLOOD UREA NITROGEN 9.3 mg/dL (7-18); MAGNESIUM 2.1 mg/dL (1.8-2.4)
[2021-05-17 09:21] LABS: CREATININE 0.7 mg/dL (0.55-1.3)
[2021-05-17 09:23] LABS: BILIRUBIN,TOTAL 0.8 mg/dL (0.2-1); TOT PROT 7.4 g/dl (6.4-8.2)
[2021-05-17] MEDS ORDERED: PT OWN MED DRAWER 7, Y5N ONE (10:36)
[2021-05-17] MEDS: ENOXAPARIN NA (PORCINE) 40 MG/0.4 ML DISP.SYRIN SQ SCH (10:51)
[2021-05-17] MEDS: FAMOTIDINE 40 MG TABLET PO SCH (10:51)
[2021-05-17] MEDS: ASCORBIC ACID 500 MG TABLET (FP) PO SCH (10:52)
[2021-05-17] MEDS: DEXAMETHASONE SOD PHOSPHATE 10 MG/1 ML VIAL IVPUSH SCH (10:52)
[2021-05-17] MEDS: BACLOFEN 10 MG TABLET (FP) PO SCH ×4 (10:52→21:18)
[2021-05-17] MEDS: ERTAPENEM SODIUM 1 GM in SODIUM CHLORIDE 50 ML IVPB SCH (11:47)
[2021-05-17 16:02] VITALS: BMI 22.3
[2021-05-17] MEDS: REMDESIVIR 100 MG in SODIUM CHLORIDE 250 ML IVPB SCH (17:09)
[2021-05-17] MEDS: AMINO ACIDS/PROTEIN HYDROLYS 30 ML LIQUID.PKT PO SCH (18:19)
[2021-05-18 09:46] LABS: BASO % 0.4 % (0-2.0); EOS % 0.1 % (0-4.5); HEMATOCRIT 39.6 % (35.4-49); HEMOGLOBIN 13.7 GM/dL (11.7-16.9); LYMPH % 17.8 % (8-40); MCH 30.6 pg (25.7-33.7); MCHC 34.4 g/dl (32.0-35.9); MEAN CELL VOLUME 88.8 fl (80-96); MEAN PLT VOLUME 7.9 fl (7.5-11.1); MONO % 14.8 % (3.8-10.2); NEUT % 66.9 % (42.8-82.8); PLATELET COUNT 282 10^3/uL (134-434); RBC 4.46 M/mm3 (4.00-5.60); RDW 13.5 % (11.9-15.9); WHITE BLOOD COUNT 3.3 K/mm3 (4.0-10.0)
[2021-05-18 10:05] LABS: BLOOD UREA NITROGEN 12.2 mg/dL (7-18); CALCIUM 8.9 mg/dL (8.5-10.1); MAGNESIUM 2.2 mg/dL (1.8-2.4)
[2021-05-18 10:08] LABS: CREATININE 0.6 mg/dL (0.55-1.3)
[2021-05-18 10:10] LABS: TOT PROT 7.6 g/dl (6.4-8.2)
[2021-05-18] MEDS: AMINO ACIDS/PROTEIN HYDROLYS 30 ML LIQUID.PKT PO SCH ×2 (10:55→18:11)
[2021-05-18] MEDS: ASCORBIC ACID 500 MG TABLET (FP) PO SCH (10:55)
[2021-05-18] MEDS: ZINC SULFATE 220 MG CAPSULE (FP) PO SCH (10:55)
[2021-05-18] MEDS: FAMOTIDINE 40 MG TABLET PO SCH (10:55)
[2021-05-18] MEDS: MULTIVITAMINS (DAILY MVI) TABLET (FP) PO SCH (10:55)
[2021-05-18] MEDS: BACLOFEN 10 MG TABLET (FP) PO SCH ×4 (10:56→22:34)
[2021-05-18] MEDS: DEXAMETHASONE SOD PHOSPHATE 10 MG/1 ML VIAL IVPUSH SCH (10:56)
[2021-05-18] MEDS: MIDODRINE HCL 5 MG TABLET PO SCH ×3 (10:57→18:10)
[2021-05-18] MEDS: ENOXAPARIN NA (PORCINE) 40 MG/0.4 ML DISP.SYRIN SQ SCH (10:57)
[2021-05-18] MEDS: ERTAPENEM SODIUM 1 GM in SODIUM CHLORIDE 50 ML IVPB SCH (11:50)
[2021-05-18] MEDS: ERGOCALCIFEROL (VIT D2) 50,000 UNIT (1.25 MG) CAPSULE PO SCH (11:50)
[2021-05-18] MEDS ORDERED: SODIUM CHLORIDE 500 ML IV STA (13:44)
[2021-05-18] MEDS ORDERED: PT OWN MED DRAWER 7, Y5N ONE (15:23)
[2021-05-18] MEDS: REMDESIVIR 100 MG in SODIUM CHLORIDE 250 ML IVPB SCH (16:00)
[2021-05-18] MEDS: COLLAGENASE CLOSTRIDIUM HIST. 30 GRAMS TUBE TP SCH (16:09)
[2021-05-19] MEDS ORDERED: MAG HYDROX/AL HYDROX/SIMETH 30 ML UNIT-DOSE CUP PO PRN (05:51)
[2021-05-19] MEDS: MIDODRINE HCL 5 MG TABLET PO SCH ×5 (06:04→17:17)
[2021-05-19] MEDS: ERTAPENEM SODIUM 1 GM in SODIUM CHLORIDE 50 ML IVPB SCH (10:03)
[2021-05-19] MEDS: ASCORBIC ACID 500 MG TABLET (FP) PO SCH (10:04)
[2021-05-19] MEDS: MULTIVITAMINS (DAILY MVI) TABLET (FP) PO SCH (10:04)
[2021-05-19] MEDS: FAMOTIDINE 40 MG TABLET PO SCH (10:04)
[2021-05-19] MEDS: BACLOFEN 10 MG TABLET (FP) PO SCH ×5 (10:04→22:39)
[2021-05-19] MEDS: DEXAMETHASONE SOD PHOSPHATE 10 MG/1 ML VIAL IVPUSH SCH (10:05)
[2021-05-19] MEDS: ENOXAPARIN NA (PORCINE) 40 MG/0.4 ML DISP.SYRIN SQ SCH (10:05)
[2021-05-19] MEDS: ZINC SULFATE 220 MG CAPSULE (FP) PO SCH (10:05)
[2021-05-19] MEDS ORDERED: ACETAMINOPHEN 325 MG TABLET (FP) PO PRN (10:16)
[2021-05-19 11:26] LABS: BASO % 0.1 % (0-2.0); HEMATOCRIT 41.3 % (35.4-49); HEMOGLOBIN 14.1 GM/dL (11.7-16.9); LYMPH % 23.2 % (8-40); MCH 30.2 pg (25.7-33.7); MCHC 34.2 g/dl (32.0-35.9); MEAN CELL VOLUME 88.3 fl (80-96); MEAN PLT VOLUME 7.6 fl (7.5-11.1); MONO % 11.5 % (3.8-10.2); NEUT % 65.2 % (42.8-82.8); PLATELET COUNT 253 10^3/uL (134-434); RBC 4.67 M/mm3 (4.00-5.60); WHITE BLOOD COUNT 4.5 K/mm3 (4.0-10.0)
[2021-05-19] MEDS ORDERED: PT OWN MED DRAWER 7, Y5N ONE ×3 (11:43→22:28)
[2021-05-19 11:44] LABS: ALBUMIN 3.2 g/dl (3.4-5.0); BLOOD UREA NITROGEN 14.1 mg/dL (7-18); CALCIUM 9.1 mg/dL (8.5-10.1); MAGNESIUM 2.2 mg/dL (1.8-2.4)
[2021-05-19 11:47] LABS: CREATININE 0.7 mg/dL (0.55-1.3)
[2021-05-19 11:49] LABS: BILIRUBIN,TOTAL 1.7 mg/dL (0.2-1); TOT PROT 7.4 g/dl (6.4-8.2)
[2021-05-19] MEDS: TRIMETHOBENZAMIDE HCL 300 MG CAPSULE PO PRN (12:53)
[2021-05-19] MEDS: chlorproMAZINE HCL 25 MG TABLET PO SCH ×3 (13:35→22:38)
[2021-05-19] MEDS: AMINO ACIDS/PROTEIN HYDROLYS 30 ML LIQUID.PKT PO SCH ×2 (13:35→17:16)
[2021-05-19] MEDS: COLLAGENASE CLOSTRIDIUM HIST. 30 GRAMS TUBE TP SCH (13:44)
[2021-05-19] MEDS: POTASSIUM CHLORIDE TABS 20 MEQ TABLET.ER (FP) PO SCH ×2 (16:07→17:18)
[2021-05-19] MEDS: LORazepam 0.5 MG TABLET PO PRN (16:08)
[2021-05-19] MEDS: REMDESIVIR 100 MG in SODIUM CHLORIDE 250 ML IVPB SCH (16:15)
[2021-05-20] MEDS: MIDODRINE HCL 5 MG TABLET PO SCH ×4 (05:03→17:01)
[2021-05-20] MEDS ORDERED: PT OWN MED DRAWER 7, Y5N ONE ×3 (07:56→10:21)
[2021-05-20] MEDS: AMINO ACIDS/PROTEIN HYDROLYS 30 ML LIQUID.PKT PO SCH ×2 (09:03→17:01)
[2021-05-20] MEDS: ENOXAPARIN NA (PORCINE) 40 MG/0.4 ML DISP.SYRIN SQ SCH (09:04)
[2021-05-20] MEDS: MULTIVITAMINS (DAILY MVI) TABLET (FP) PO SCH (09:04)
[2021-05-20] MEDS: ZINC SULFATE 220 MG CAPSULE (FP) PO SCH (09:04)
[2021-05-20] MEDS: DEXAMETHASONE SOD PHOSPHATE 10 MG/1 ML VIAL IVPUSH SCH (09:04)
[2021-05-20] MEDS: FAMOTIDINE 40 MG TABLET PO SCH (09:04)
[2021-05-20] MEDS: BACLOFEN 10 MG TABLET (FP) PO SCH ×4 (09:04→21:18)
[2021-05-20 10:04] LABS: BASO % 0.2 % (0-2.0); EOS % 0.1 % (0-4.5); HEMATOCRIT 38.7 % (35.4-49); HEMOGLOBIN 12.8 GM/dL (11.7-16.9); MCH 29.5 pg (25.7-33.7); MEAN CELL VOLUME 89.2 fl (80-96); MEAN PLT VOLUME 8.7 fl (7.5-11.1); MONO % 11.3 % (3.8-10.2); NEUT % 60.4 % (42.8-82.8); PLATELET COUNT 244 10^3/uL (134-434); RBC 4.34 M/mm3 (4.00-5.60); RDW 13.3 % (11.9-15.9); WHITE BLOOD COUNT 4.2 K/mm3 (4.0-10.0)
[2021-05-20 10:31] LABS: CREATININE 0.6 mg/dL (0.55-1.3)
[2021-05-20 10:32] LABS: CALCIUM 8.4 mg/dL (8.5-10.1)
[2021-05-20 10:33] LABS: BILIRUBIN,TOTAL 1.5 mg/dL (0.2-1); BLOOD UREA NITROGEN 14.6 mg/dL (7-18); MAGNESIUM 2.1 mg/dL (1.8-2.4); TOT PROT 6.7 g/dl (6.4-8.2)
[2021-05-20] MEDS: ERTAPENEM SODIUM 1 GM in SODIUM CHLORIDE 50 ML IVPB SCH (10:45)
[2021-05-20] MEDS: COLLAGENASE CLOSTRIDIUM HIST. 30 GRAMS TUBE TP SCH (10:45)
[2021-05-20 10:58] LABS: ALBUMIN 2.6 g/dl (3.4-5.0)
[2021-05-20] MEDS: ASCORBIC ACID 500 MG TABLET (FP) PO SCH (11:14)
[2021-05-20] MEDS ORDERED: SODIUM CHLORIDE 500 ML IV STA (14:05)
[2021-05-20] MEDS: REMDESIVIR 100 MG in SODIUM CHLORIDE 250 ML IVPB SCH (16:54)
[2021-05-21] MEDS: MIDODRINE HCL 5 MG TABLET PO SCH ×4 (06:27→17:51)
[2021-05-21 10:39] LABS: BASO % 0.2 % (0-2.0); EOS % 0.1 % (0-4.5); HEMATOCRIT 40.5 % (35.4-49); HEMOGLOBIN 13.3 GM/dL (11.7-16.9); LYMPH % 18.6 % (8-40); MCH 29.6 pg (25.7-33.7); MCHC 32.8 g/dl (32.0-35.9); MEAN CELL VOLUME 90.2 fl (80-96); MEAN PLT VOLUME 8.4 fl (7.5-11.1); MONO % 9.2 % (3.8-10.2); NEUT % 71.9 % (42.8-82.8); PLATELET COUNT 269 10^3/uL (134-434); RBC 4.49 M/mm3 (4.00-5.60); RDW 13.1 % (11.9-15.9); WHITE BLOOD COUNT 6.3 K/mm3 (4.0-10.0)
[2021-05-21] MEDS ORDERED: PT OWN MED DRAWER 7, Y5N ONE (10:51)
[2021-05-21] MEDS: BACLOFEN 10 MG TABLET (FP) PO SCH ×4 (10:54→21:11)
[2021-05-21] MEDS: FAMOTIDINE 40 MG TABLET PO SCH (10:54)
[2021-05-21] MEDS: ZINC SULFATE 220 MG CAPSULE (FP) PO SCH (10:54)
[2021-05-21] MEDS: AMINO ACIDS/PROTEIN HYDROLYS 30 ML LIQUID.PKT PO SCH ×3 (10:54→18:37)
[2021-05-21] MEDS: ERTAPENEM SODIUM 1 GM in SODIUM CHLORIDE 50 ML IVPB SCH (10:55)
[2021-05-21] MEDS: MULTIVITAMINS (DAILY MVI) TABLET (FP) PO SCH (10:55)
[2021-05-21] MEDS: ASCORBIC ACID 500 MG TABLET (FP) PO SCH (10:55)
[2021-05-21] MEDS: DEXAMETHASONE SOD PHOSPHATE 10 MG/1 ML VIAL IVPUSH SCH (10:56)
[2021-05-21] MEDS: ENOXAPARIN NA (PORCINE) 40 MG/0.4 ML DISP.SYRIN SQ SCH (10:58)
[2021-05-21 11:02] LABS: ALBUMIN 2.8 g/dl (3.4-5.0)
[2021-05-21 11:03] LABS: BLOOD UREA NITROGEN 10.5 mg/dL (7-18); CALCIUM 8.7 mg/dL (8.5-10.1); MAGNESIUM 2.2 mg/dL (1.8-2.4)
[2021-05-21 11:04] LABS: CREATININE 0.6 mg/dL (0.55-1.3)
[2021-05-21 11:07] LABS: BILIRUBIN,TOTAL 1.6 mg/dL (0.2-1); TOT PROT 7.3 g/dl (6.4-8.2)
[2021-05-21] MEDS: POTASSIUM CHLORIDE ORAL LIQUID 20 MEQ/15 ML PO ONE ×2 (13:05→14:01)
[2021-05-21] MEDS: COLLAGENASE CLOSTRIDIUM HIST. 30 GRAMS TUBE TP SCH (13:06)
[2021-05-21] MEDS ORDERED: POTASSIUM CHLORIDE TABS 20 MEQ TABLET.ER (FP) PO ONE (14:09)
[2021-05-21] MEDS: LORazepam 0.5 MG TABLET PO PRN (21:11)
[2021-05-22] MEDS: MIDODRINE HCL 5 MG TABLET PO SCH ×4 (06:03→17:23)
[2021-05-22] MEDS: AMINO ACIDS/PROTEIN HYDROLYS 30 ML LIQUID.PKT PO SCH ×4 (08:49→17:49)
[2021-05-22] MEDS ORDERED: PT OWN MED DRAWER 7, Y5N ONE ×2 (10:25→13:41)
[2021-05-22] MEDS: ZINC SULFATE 220 MG CAPSULE (FP) PO SCH (10:27)
[2021-05-22] MEDS: BACLOFEN 10 MG TABLET (FP) PO SCH ×4 (10:27→21:28)
[2021-05-22] MEDS: FAMOTIDINE 40 MG TABLET PO SCH (10:28)
[2021-05-22] MEDS: MULTIVITAMINS (DAILY MVI) TABLET (FP) PO SCH (10:29)
[2021-05-22] MEDS: ASCORBIC ACID 500 MG TABLET (FP) PO SCH (10:29)
[2021-05-22] MEDS: DEXAMETHASONE SOD PHOSPHATE 10 MG/1 ML VIAL IVPUSH SCH (10:31)
[2021-05-22] MEDS: ENOXAPARIN NA (PORCINE) 40 MG/0.4 ML DISP.SYRIN SQ SCH (10:32)
[2021-05-22] MEDS: ERTAPENEM SODIUM 1 GM in SODIUM CHLORIDE 50 ML IVPB SCH (11:14)
[2021-05-22] MEDS: COLLAGENASE CLOSTRIDIUM HIST. 30 GRAMS TUBE TP SCH (11:14)
[2021-05-22] MEDS ORDERED: POTASSIUM CHLORIDE TABS 20 MEQ TABLET.ER (FP) PO ONE (15:08)
[2021-05-22] MEDS ORDERED: ALBUTEROL SO4 2.5/IPRATROPIUM 0.5 INH SOL 3 ML VIAL.NEB. NEB PRN (23:37)
[2021-05-22] MEDS: ALBUTEROL SO4 HFA INHALER IH PRN (23:58)
[2021-05-23] MEDS: MIDODRINE HCL 5 MG TABLET PO SCH ×4 (05:49→17:15)
[2021-05-23] MEDS: TRIMETHOBENZAMIDE HCL 300 MG CAPSULE PO PRN (10:51)
[2021-05-23] MEDS: ERTAPENEM SODIUM 1 GM in SODIUM CHLORIDE 50 ML IVPB SCH (10:52)
[2021-05-23] MEDS: DEXAMETHASONE SOD PHOSPHATE 10 MG/1 ML VIAL IVPUSH SCH (10:56)
[2021-05-23] MEDS: AMINO ACIDS/PROTEIN HYDROLYS 30 ML LIQUID.PKT PO SCH ×2 (11:02→17:15)
[2021-05-23] MEDS: BACLOFEN 10 MG TABLET (FP) PO SCH ×4 (11:03→22:16)
[2021-05-23] MEDS: ZINC SULFATE 220 MG CAPSULE (FP) PO SCH (11:03)
[2021-05-23] MEDS: COLLAGENASE CLOSTRIDIUM HIST. 30 GRAMS TUBE TP SCH (11:04)
[2021-05-23] MEDS: ASCORBIC ACID 500 MG TABLET (FP) PO SCH (11:04)
[2021-05-23] MEDS: MULTIVITAMINS (DAILY MVI) TABLET (FP) PO SCH (11:04)
[2021-05-23] MEDS: FAMOTIDINE 40 MG TABLET PO SCH (11:04)
[2021-05-23] MEDS: ALBUTEROL SO4 HFA INHALER IH PRN (11:05)
[2021-05-23] MEDS: DEXAMETHASONE 4 MG TABLET (FP) PO SCH (11:38)
[2021-05-23] MEDS: guaiFENesin 600 MG TABLET.ER (FP) PO SCH ×3 (17:14→22:20)
[2021-05-24] MEDS ORDERED: MELATONIN 1 MG TABLET PO PRN (01:07)
[2021-05-24] MEDS: MIDODRINE HCL 5 MG TABLET PO SCH ×4 (05:04→18:12)
[2021-05-24 09:32] LABS: BASO % 0.2 % (0-2.0); EOS % 0.1 % (0-4.5); HEMATOCRIT 37.6 % (35.4-49); HEMOGLOBIN 12.4 GM/dL (11.7-16.9); LYMPH % 18.3 % (8-40); MCH 29.8 pg (25.7-33.7); MCHC 33.1 g/dl (32.0-35.9); MEAN CELL VOLUME 90.1 fl (80-96); MEAN PLT VOLUME 8.9 fl (7.5-11.1); MONO % 8.8 % (3.8-10.2); NEUT % 72.6 % (42.8-82.8); PLATELET COUNT 388 10^3/uL (134-434); RBC 4.17 M/mm3 (4.00-5.60); RDW 13.7 % (11.9-15.9); WHITE BLOOD COUNT 9.7 K/mm3 (4.0-10.0)
[2021-05-24 10:18] LABS: BLOOD UREA NITROGEN 11.3 mg/dL (7-18); CALCIUM 9.1 mg/dL (8.5-10.1)
[2021-05-24 10:19] LABS: ALBUMIN 3.2 g/dl (3.4-5.0)
[2021-05-24 10:20] LABS: MAGNESIUM 2.4 mg/dL (1.8-2.4)
[2021-05-24 10:21] LABS: CREATININE 0.5 mg/dL (0.55-1.3)
[2021-05-24 10:23] LABS: BILIRUBIN,TOTAL 0.8 mg/dL (0.2-1); TOT PROT 7.5 g/dl (6.4-8.2)
[2021-05-24] MEDS: DEXAMETHASONE 4 MG TABLET (FP) PO SCH (10:47)
[2021-05-24] MEDS: AMINO ACIDS/PROTEIN HYDROLYS 30 ML LIQUID.PKT PO SCH ×2 (10:47→18:10)
[2021-05-24] MEDS: FAMOTIDINE 40 MG TABLET PO SCH (10:48)
[2021-05-24] MEDS: guaiFENesin 600 MG TABLET.ER (FP) PO SCH ×3 (10:48→21:49)
[2021-05-24] MEDS: ASCORBIC ACID 500 MG TABLET (FP) PO SCH (10:48)
[2021-05-24] MEDS: MULTIVITAMINS (DAILY MVI) TABLET (FP) PO SCH (10:48)
[2021-05-24] MEDS: ZINC SULFATE 220 MG CAPSULE (FP) PO SCH (10:48)
[2021-05-24] MEDS: COLLAGENASE CLOSTRIDIUM HIST. 30 GRAMS TUBE TP SCH (10:49)
[2021-05-24] MEDS: BACLOFEN 10 MG TABLET (FP) PO SCH ×4 (10:49→21:49)
[2021-05-25] MEDS: MIDODRINE HCL 5 MG TABLET PO SCH ×4 (05:08→18:05)
[2021-05-25] MEDS ORDERED: PT OWN MED DRAWER 7, Y5N ONE (09:20)
[2021-05-25] MEDS: AMINO ACIDS/PROTEIN HYDROLYS 30 ML LIQUID.PKT PO SCH ×2 (09:27→18:05)
[2021-05-25] MEDS: ASCORBIC ACID 500 MG TABLET (FP) PO SCH (09:28)
[2021-05-25] MEDS: DEXAMETHASONE 4 MG TABLET (FP) PO SCH (09:28)
[2021-05-25] MEDS: BACLOFEN 10 MG TABLET (FP) PO SCH ×4 (09:29→23:50)
[2021-05-25] MEDS: guaiFENesin 600 MG TABLET.ER (FP) PO SCH ×3 (09:29→23:52)
[2021-05-25] MEDS: MULTIVITAMINS (DAILY MVI) TABLET (FP) PO SCH (09:29)
[2021-05-25] MEDS: COLLAGENASE CLOSTRIDIUM HIST. 30 GRAMS TUBE TP SCH (09:29)
[2021-05-25] MEDS: ZINC SULFATE 220 MG CAPSULE (FP) PO SCH (09:29)
[2021-05-25] MEDS: FAMOTIDINE 40 MG TABLET PO SCH (09:29)
[2021-05-25] MEDS: ERGOCALCIFEROL (VIT D2) 50,000 UNIT (1.25 MG) CAPSULE PO SCH (09:30)
[2021-05-25] MEDS ORDERED: MIDODRINE HCL 5 MG TABLET PO SCH ×2 (13:45→18:00)
[2021-05-26] MEDS: BACLOFEN 10 MG TABLET (FP) PO SCH ×4 (05:43→23:13)
[2021-05-26] MEDS: MIDODRINE HCL 5 MG TABLET PO SCH ×4 (05:43→17:27)
[2021-05-26] MEDS: AMINO ACIDS/PROTEIN HYDROLYS 30 ML LIQUID.PKT PO SCH ×4 (08:38→17:30)
[2021-05-26] MEDS: DEXAMETHASONE 4 MG TABLET (FP) PO SCH (10:17)
[2021-05-26] MEDS: ZINC SULFATE 220 MG CAPSULE (FP) PO SCH (10:18)
[2021-05-26] MEDS: FAMOTIDINE 40 MG TABLET PO SCH (10:18)
[2021-05-26] MEDS: guaiFENesin 600 MG TABLET.ER (FP) PO SCH ×3 (10:18→21:34)
[2021-05-26] MEDS: MULTIVITAMINS (DAILY MVI) TABLET (FP) PO SCH (10:19)
[2021-05-26] MEDS: ASCORBIC ACID 500 MG TABLET (FP) PO SCH (10:19)
[2021-05-26] MEDS: COLLAGENASE CLOSTRIDIUM HIST. 30 GRAMS TUBE TP SCH (10:46)
[2021-05-27] MEDS: BACLOFEN 10 MG TABLET (FP) PO SCH ×2 (05:33→11:49)
[2021-05-27] MEDS: MIDODRINE HCL 5 MG TABLET PO SCH ×2 (05:33→10:08)
[2021-05-27] MEDS ORDERED: PT OWN MED DRAWER 7, Y5N ONE (10:00)
[2021-05-27] MEDS: DEXAMETHASONE 4 MG TABLET (FP) PO SCH (10:06)
[2021-05-27] MEDS: AMINO ACIDS/PROTEIN HYDROLYS 30 ML LIQUID.PKT PO SCH ×2 (10:06→10:41)
[2021-05-27] MEDS: guaiFENesin 600 MG TABLET.ER (FP) PO SCH (10:07)
[2021-05-27] MEDS: ZINC SULFATE 220 MG CAPSULE (FP) PO SCH (10:07)
[2021-05-27] MEDS: ASCORBIC ACID 500 MG TABLET (FP) PO SCH (10:08)
[2021-05-27] MEDS: MULTIVITAMINS (DAILY MVI) TABLET (FP) PO SCH (10:08)
[2021-05-27] MEDS: FAMOTIDINE 40 MG TABLET PO SCH (10:08)
[2021-05-27] MEDS: COLLAGENASE CLOSTRIDIUM HIST. 30 GRAMS TUBE TP SCH (10:39)
[2021-05-27 12:47] VITALS: BP 106/69; PULSE 58; TEMP 98.3
== END 2021-05-27 15:12 | disposition home or self-care (01) | DRG 720 ==
LOC: JER 11:01 → JERBED 12:24 → J8W 05-16 23:57
PROVIDERS: ADMIT Internal Medicine; ATTEND Internal Medicine
PROC: 3E0333Z Introduction of Anti-inflammatory into Peripheral Vein, Percutaneous Approach (ICD-10-PCS; principal; 2021-05-16)
PROC: XW033E5 Introduction of Remdesivir Anti-infective into Peripheral Vein, Percutaneous Approach, New Technology Group 5 (ICD-10-PCS; 2021-05-16)
DX: A41.89 Other specified sepsis (principal); U07.1 COVID-19; J12.82 Pneumonia due to coronavirus disease 2019; L89.153 Pressure ulcer of sacral region, stage 3; E87.2 Acidosis; G82.20 Paraplegia, unspecified; N39.0 Urinary tract infection, site not specified; N17.9 Acute kidney failure, unspecified; E87.6 Hypokalemia; R65.20 Severe sepsis without septic shock; I95.9 Hypotension, unspecified; R00.0 Tachycardia, unspecified; N20.0 Calculus of kidney; J96.01 Acute respiratory failure with hypoxia; Z93.0 Tracheostomy status; B96.89 Other specified bacterial agents as the cause of diseases classified elsewhere; Z16.12 Extended spectrum beta lactamase (ESBL) resistance; Z87.828 Personal history of other (healed) physical injury and trauma
CPT/HCPCS: 36415; 71045-TC-FY; 74176-TC; 76937; 80053; 81003; 82533; 82550; 82553; 82728; 82803; 83605; 83615; 83735; 84484; 85025; 85379; 85610; 85651; 85730; 86140; 86850; 86900; 86901; 87040; 87086; 87186; 87804; 87807; 93005; 93010; 94010; 94761; 97116-GP; 97161-GP; 99291; C9399; C9803-CS; J0475; J1100; U0003; U0005

== ENCOUNTER 2022-01-23 11:54 | Inpatient (IN) | payer OTHER ==
[2022-01-23 12:10] VITALS: BMI 24.3
[2022-01-23] MEDS ORDERED: ACETAMINOPHEN INJECTION 100 ML IVPB ONE (12:17)
[2022-01-23] MEDS ORDERED: SODIUM CHLORIDE 2,245 ML IV ONE (12:17)
[2022-01-23] MEDS ORDERED: ACETAMINOPHEN 1000 MG/100 ML BAG IVPB ONE (12:18)
[2022-01-23] MEDS ORDERED: VANCOMYCIN 1 GM in D5W (PRE-DOCKED) 1,000 MG/250 ML IVPB ONE (12:24)
[2022-01-23] MEDS ORDERED: PIPERACILLIN/TAZOB 3.375 GM 3.375 GM in DEXTROSE 5%-WATER - 50 ML IVPB ONE (12:24)
[2022-01-23 13:19] LABS: BASO % 0.4 % (0-2.0); HEMATOCRIT 44.4 % (35.4-49); HEMOGLOBIN 14.8 GM/dL (11.7-16.9); LYMPH % 3.4 % (8-40); MCH 31.4 pg (25.7-33.7); MCHC 33.3 g/dl (32.0-35.9); MEAN CELL VOLUME 94.4 fl (80-96); MEAN PLT VOLUME 8.2 fl (7.5-11.1); MONO % 6.5 % (3.8-10.2); NEUT % 89.7 % (42.8-82.8); PLATELET COUNT 364 10^3/uL (134-434); RDW 13.8 % (11.9-15.9)
[2022-01-23 13:21] LABS: VENOUS BASE EXCESS -0.6 mmol/L (-2-2); VENOUS O2 SATURATION 46.6 % (70-80); VENOUS PCO2 38.9 mmHg (38-52); VENOUS PH 7.406 (7.310-7.410)
[2022-01-23 13:23] LABS: INR 1.3 (0.83-1.09)
[2022-01-23 13:25] LABS: CALCIUM 9.5 mg/dL (8.5-10.1)
[2022-01-23 13:26] LABS: ACTIVATED PTT 39.8 SECONDS (25.2-36.5); BLOOD UREA NITROGEN 21.9 mg/dL (7-18)
[2022-01-23 13:28] LABS: CREATININE 1.2 mg/dL (0.55-1.3)
[2022-01-23 13:30] LABS: BILIRUBIN,TOTAL 1.4 mg/dL (0.2-1); TOT PROT 8.5 g/dl (6.4-8.2)
[2022-01-23 13:36] LABS: ALBUMIN 3.4 g/dl (3.4-5.0)
[2022-01-23] MEDS ORDERED: PIPERACILLIN/TAZOB 3.375 GM 3.375 GM/50 ML BAG IVPB ONE (13:38)
[2022-01-23] MEDS ORDERED: VANCOMYCIN/WATER FOR INJ (PEG) 1,000 MG/200 ML BAG IVPB ONE ×2 (13:41→14:12)
[2022-01-23 13:54] LABS: LACTIC ACID 2.5 mmol/L (0.4-2.0)
[2022-01-23 13:55] LABS: EPI CELLS 2 /uL (0-25.1); HYALINE CASTS 3 /uL (0-3.1); URINE APPEARANCE TURBID; URINE BACTERIA >9,000 /uL (0-1359); URINE BILIRUBIN NEGATIVE (NEGATIVE); URINE COLOR YELLOW; URINE GLUCOSE (UA) NEGATIVE (NEGATIVE); URINE KETONE NEGATIVE (NEGATIVE); URINE LEUK ESTERASE 3+ (NEGATIVE); URINE NITRITE NEGATIVE (NEGATIVE); URINE PROTEIN 2+ (NEGATIVE); URINE RBC 554 /uL (0-23.9); URINE WBC 4604 /uL (0-25.8)
[2022-01-23] MEDS ORDERED: HEPARIN NA (PORCINE) 5,000 UNITS/ML 1ML VIAL IVPUSH PRN (14:03)
[2022-01-23] MEDS ORDERED: CLOPIDOGREL BISULFATE 300 MG TABLET PO ONE (14:05)
[2022-01-23] MEDS ORDERED: ASPIRIN 81 MG CHEWABLE TABLETS PO ONE (14:06)
[2022-01-23] MEDS ORDERED: ASPIRIN 81 MG CHEWABLE TABLETS ONE (14:12)
[2022-01-23] MEDS ORDERED: CLOPIDOGREL BISULFATE 300 MG TABLET ONE (14:12)
[2022-01-23] MEDS ORDERED: HEPARIN INFUSION - 25,000 UNITS/500 ML INFUS.BAG IVPB SCH (14:15)
[2022-01-23] MEDS ORDERED: HEPARIN INFUSION - 25,000 UNITS/500 ML INFUS.BAG IVPB ONE (14:52)
[2022-01-23 14:57] LABS: LACTIC ACID 2.3 mmol/L (0.4-2.0)
[2022-01-23] MEDS ORDERED: MIDODRINE HCL 5 MG TABLET PO ONE (17:32)
[2022-01-23] MEDS ORDERED: oxyCODONE HCL 5 MG TABLET PO PRN (18:33)
[2022-01-23] MEDS ORDERED: ERTAPENEM SODIUM 1 GM in SODIUM CHLORIDE 50 ML IVPB SCH (18:45)
[2022-01-23] MEDS ORDERED: MEROPENEM 1 GM VIAL (RESTRICTED TO ID) IVPB ONE (19:52)
[2022-01-23] MEDS: MEROPENEM 1 GM in DEXTROSE 5%-WATER 100 ML IVPB SCH (19:58)
[2022-01-23] MEDS ORDERED: BACLOFEN 10 MG TABLET (FP) ONE (21:38)
[2022-01-23] MEDS ORDERED: GABAPENTIN 400 MG CAPSULE ONE (21:38)
[2022-01-23] MEDS: BACLOFEN 10 MG TABLET (FP) PO SCH (21:44)
[2022-01-23] MEDS: GABAPENTIN 400 MG CAPSULE PO SCH (21:44)
[2022-01-24] MEDS: MEROPENEM 1 GM in DEXTROSE 5%-WATER 100 ML IVPB SCH ×3 (03:00→19:45)
[2022-01-24] MEDS ORDERED: MEROPENEM 1 GM VIAL (RESTRICTED TO ID) IVPB ONE ×3 (04:26→18:23)
[2022-01-24] MEDS ORDERED: BACLOFEN 10 MG TABLET (FP) ONE ×2 (08:12→13:26)
[2022-01-24] MEDS ORDERED: GABAPENTIN 400 MG CAPSULE ONE ×2 (08:13→13:27)
[2022-01-24] MEDS: GABAPENTIN 400 MG CAPSULE PO SCH ×3 (08:26→14:50)
[2022-01-24] MEDS: BACLOFEN 10 MG TABLET (FP) PO SCH ×2 (08:26→14:37)
[2022-01-24] MEDS ORDERED: FAMOTIDINE 20 MG TABLET ONE (09:22)
[2022-01-24] MEDS ORDERED: ENOXAPARIN NA (PORCINE) 40 MG/0.4 ML DISP.SYRIN SQ ONE (09:22)
[2022-01-24] MEDS: FAMOTIDINE 40 MG TABLET PO SCH (09:42)
[2022-01-24] MEDS ORDERED: ENOXAPARIN NA (PORCINE) 40 MG/0.4 ML DISP.SYRIN SQ SCH (10:00)
[2022-01-24] MEDS ORDERED: MIDODRINE HCL 5 MG TABLET PO SCH (10:00)
[2022-01-24] MEDS: MIDODRINE HCL 5 MG TABLET PO SCH ×3 (10:55→19:25)
[2022-01-24 11:17] LABS: BASO % 0.3 % (0-2.0); EOS % 0.1 % (0-4.5); HEMATOCRIT 39.2 % (35.4-49); MCH 31.2 pg (25.7-33.7); MCHC 33.1 g/dl (32.0-35.9); MEAN CELL VOLUME 94.1 fl (80-96); MEAN PLT VOLUME 7.9 fl (7.5-11.1); MONO % 6.8 % (3.8-10.2); NEUT % 88.8 % (42.8-82.8); PLATELET COUNT 284 10^3/uL (134-434); RBC 4.17 M/mm3 (4.00-5.60); RDW 13.3 % (11.9-15.9); WHITE BLOOD COUNT 12.9 K/mm3 (4.0-10.0)
[2022-01-24 11:30] LABS: CALCIUM 8.8 mg/dL (8.5-10.1)
[2022-01-24 11:31] LABS: MAGNESIUM 1.9 mg/dL (1.8-2.4)
[2022-01-24 11:34] LABS: CREATININE 0.7 mg/dL (0.55-1.3); PHOSPHOROUS 2.1 mg/dL (2.5-4.9)
[2022-01-24 11:35] LABS: BILIRUBIN,TOTAL 1.1 mg/dL (0.2-1); TOT PROT 6.8 g/dl (6.4-8.2)
[2022-01-24 11:40] LABS: ALBUMIN 2.6 g/dl (3.4-5.0)
[2022-01-24 12:22] LABS: N-TERMINAL BNP 26965.6 pg/ml (5-125)
[2022-01-24] MEDS ORDERED: NAPH,MB-DB/K PH,MBDB POWDER PACKET PO ONE (13:03)
[2022-01-24] MEDS ORDERED: POTASSIUM CHLORIDE TABS 20 MEQ TABLET.ER (FP) PO ONE (13:26)
[2022-01-24] MEDS ORDERED: MAGNESIUM 1GM/D5W - 1 GM/100 ML IVPB IVPB ONE (13:27)
[2022-01-24] MEDS ORDERED: HEPARIN NA (PORCINE) 5,000 UNITS/ML 1ML VIAL SQ SCH (14:00)
[2022-01-24] MEDS ORDERED: MAGNESIUM 1GM/D5W 100ML - 100 ML IVPB IVPB ONE (15:00)
[2022-01-24] MEDS ORDERED: VANCOMYCIN/WATER FOR INJ (PEG) 1,000 MG/200 ML BAG IVPB ONE (16:45)
[2022-01-24] MEDS ORDERED: NAPH,MB-DB/K PH,MBDB POWDER PACKET ONE (17:02)
[2022-01-24] MEDS ORDERED: KCL 10 MEQ IVPB 10 MEQ/100 ML INFUS.BAG IVPB ONE (17:03)
[2022-01-24] MEDS ORDERED: MEROPENEM 500 MG VIAL (RESTRICTED TO ID) IVPB ONE (18:26)
[2022-01-24] MEDS: MEROPENEM 500 MG in DEXTROSE 5%-WATER 100 ML IVPB SCH (18:30)
[2022-01-24] MEDS: KCL 10 MEQ IVPB 10 MEQ/100 ML INFUS.BAG IVPB SCH (19:19)
[2022-01-25] MEDS: BACLOFEN 10 MG TABLET (FP) PO SCH ×4 (00:57→21:06)
[2022-01-25] MEDS: GABAPENTIN 400 MG CAPSULE PO SCH ×4 (00:57→21:06)
[2022-01-25 01:16] LABS: CHLORIDE 107 mmol/L (98-107); SODIUM 141 mmol/L (136-145)
[2022-01-25 01:17] LABS: CALCIUM 8.7 mg/dL (8.5-10.1)
[2022-01-25 01:18] LABS: BLOOD UREA NITROGEN 12.8 mg/dL (7-18); CO2 27 mmol/L (21-32); GLUCOSE,RANDOM 95 mg/dL (74-106)
[2022-01-25 01:21] LABS: CREATININE 0.7 mg/dL (0.55-1.3)
[2022-01-25] MEDS: MEROPENEM 500 MG in DEXTROSE 5%-WATER 100 ML IVPB SCH ×3 (01:38→17:05)
[2022-01-25 01:46] LABS: ANION GAP 7 MMOL/L (8-16)
[2022-01-25] MEDS ORDERED: POTASSIUM CHLORIDE ORAL LIQUID 20 MEQ/15 ML PO ONE ×2 (03:02→07:00)
[2022-01-25] MEDS: MEROPENEM 1 GM in DEXTROSE 5%-WATER 100 ML IVPB SCH (07:40)
[2022-01-25 07:41] LABS: BASO % 0.5 % (0-2.0); EOS % 1.2 % (0-4.5); HEMATOCRIT 39.8 % (35.4-49); HEMOGLOBIN 13.3 GM/dL (11.7-16.9); LYMPH % 11.3 % (8-40); MCH 31.5 pg (25.7-33.7); MCHC 33.3 g/dl (32.0-35.9); MEAN CELL VOLUME 94.4 fl (80-96); MEAN PLT VOLUME 8.2 fl (7.5-11.1); MONO % 7.8 % (3.8-10.2); NEUT % 79.2 % (42.8-82.8); PLATELET COUNT 287 10^3/uL (134-434); RBC 4.21 M/mm3 (4.00-5.60); RDW 13.4 % (11.9-15.9)
[2022-01-25 08:00] LABS: CALCIUM 9.1 mg/dL (8.5-10.1)
[2022-01-25 08:01] LABS: ALBUMIN 2.8 g/dl (3.4-5.0); BLOOD UREA NITROGEN 11.8 mg/dL (7-18); MAGNESIUM 2.1 mg/dL (1.8-2.4)
[2022-01-25 08:04] LABS: CREATININE 0.7 mg/dL (0.55-1.3); PHOSPHOROUS 2.1 mg/dL (2.5-4.9)
[2022-01-25 08:05] LABS: BILIRUBIN,TOTAL 1.3 mg/dL (0.2-1); TOT PROT 7.2 g/dl (6.4-8.2)
[2022-01-25] MEDS: ENOXAPARIN NA (PORCINE) 40 MG/0.4 ML DISP.SYRIN SQ SCH (09:04)
[2022-01-25] MEDS: MIDODRINE HCL 5 MG TABLET PO SCH ×3 (09:04→17:05)
[2022-01-25] MEDS: POTASSIUM CHLORIDE TABS 20 MEQ TABLET.ER (FP) PO SCH (09:04)
[2022-01-25] MEDS: FAMOTIDINE 40 MG TABLET PO SCH (09:05)
[2022-01-25] MEDS ORDERED: POTASSIUM CHLORIDE ORAL LIQUID 20 MEQ/15 ML PO SCH (10:00)
[2022-01-25] MEDS ORDERED: ALBUTEROL SO4 2.5/IPRATROPIUM 0.5 INH SOL 3 ML VIAL.NEB. NEB PRN (11:42)
[2022-01-25] MEDS ORDERED: SODIUM CHLORIDE FOR INHALATION 3 ML VIAL.NEB IH PRN (11:42)
[2022-01-25] MEDS: NAPH,MB-DB/K PH,MBDB POWDER PACKET PO SCH ×2 (12:09→21:06)
[2022-01-26] MEDS: MEROPENEM 500 MG in DEXTROSE 5%-WATER 100 ML IVPB SCH ×2 (01:23→09:11)
[2022-01-26] MEDS: GABAPENTIN 400 MG CAPSULE PO SCH ×3 (06:06→21:29)
[2022-01-26] MEDS: BACLOFEN 10 MG TABLET (FP) PO SCH ×3 (06:06→21:29)
[2022-01-26] MEDS: ENOXAPARIN NA (PORCINE) 40 MG/0.4 ML DISP.SYRIN SQ SCH (09:13)
[2022-01-26] MEDS: POTASSIUM CHLORIDE TABS 20 MEQ TABLET.ER (FP) PO SCH (09:13)
[2022-01-26] MEDS: MIDODRINE HCL 5 MG TABLET PO SCH ×3 (09:13→18:11)
[2022-01-26] MEDS: AMINO ACIDS/PROTEIN HYDROLYS 30 ML LIQUID.PKT PO SCH ×2 (09:13→18:07)
[2022-01-26] MEDS: FAMOTIDINE 40 MG TABLET PO SCH (09:14)
[2022-01-26] MEDS: ZINC SULFATE 220 MG CAPSULE (FP) PO SCH (09:15)
[2022-01-26] MEDS: MULTIVITAMINS (DAILY MVI) TABLET (FP) PO SCH (09:16)
[2022-01-26 10:09] LABS: BASO % 0.5 % (0-2.0); EOS % 1.7 % (0-4.5); HEMATOCRIT 34.7 % (35.4-49); HEMOGLOBIN 11.9 GM/dL (11.7-16.9); LYMPH % 14.9 % (8-40); MCH 31.9 pg (25.7-33.7); MCHC 34.3 g/dl (32.0-35.9); MEAN CELL VOLUME 93.1 fl (80-96); MEAN PLT VOLUME 8.3 fl (7.5-11.1); MONO % 11.1 % (3.8-10.2); NEUT % 71.8 % (42.8-82.8); PLATELET COUNT 259 10^3/uL (134-434); RBC 3.73 M/mm3 (4.00-5.60); RDW 13.2 % (11.9-15.9); WHITE BLOOD COUNT 6.7 K/mm3 (4.0-10.0)
[2022-01-26 10:35] LABS: BLOOD UREA NITROGEN 11.9 mg/dL (7-18); CALCIUM 8.6 mg/dL (8.5-10.1)
[2022-01-26 10:36] LABS: ALBUMIN 2.7 g/dl (3.4-5.0)
[2022-01-26 10:38] LABS: CREATININE 0.7 mg/dL (0.55-1.3); PHOSPHOROUS 3.2 mg/dL (2.5-4.9)
[2022-01-26 10:39] LABS: BILIRUBIN,TOTAL 1.4 mg/dL (0.2-1); TOT PROT 6.4 g/dl (6.4-8.2)
[2022-01-26] MEDS ORDERED: POTASSIUM CHLORIDE TABS 20 MEQ TABLET.ER (FP) PO ONE (12:19)
[2022-01-26] MEDS: ASCORBIC ACID 250 MG TABLET (FP) PO SCH ×2 (13:22→21:28)
[2022-01-26] MEDS: COLLAGENASE CLOSTRIDIUM HIST. 30 GRAMS TUBE TP SCH (17:24)
[2022-01-26] MEDS ORDERED: TRIMETHOBENZAMIDE HCL 200MG/2ML INJ IM ONE (19:57)
[2022-01-27] MEDS: GABAPENTIN 400 MG CAPSULE PO SCH ×3 (05:52→21:16)
[2022-01-27] MEDS: BACLOFEN 10 MG TABLET (FP) PO SCH ×3 (05:53→21:16)
[2022-01-27] MEDS: AMINO ACIDS/PROTEIN HYDROLYS 30 ML LIQUID.PKT PO SCH ×2 (07:57→17:05)
[2022-01-27] MEDS: ERTAPENEM SODIUM 1 GM in SODIUM CHLORIDE 50 ML IVPB SCH (09:13)
[2022-01-27] MEDS: ENOXAPARIN NA (PORCINE) 40 MG/0.4 ML DISP.SYRIN SQ SCH (09:14)
[2022-01-27] MEDS: MULTIVITAMINS (DAILY MVI) TABLET (FP) PO SCH (09:14)
[2022-01-27] MEDS: ZINC SULFATE 220 MG CAPSULE (FP) PO SCH (09:14)
[2022-01-27] MEDS: MIDODRINE HCL 5 MG TABLET PO SCH ×3 (09:14→17:05)
[2022-01-27] MEDS: ASCORBIC ACID 250 MG TABLET (FP) PO SCH ×2 (09:15→21:16)
[2022-01-27] MEDS: POTASSIUM CHLORIDE TABS 20 MEQ TABLET.ER (FP) PO SCH (09:15)
[2022-01-27] MEDS: FAMOTIDINE 40 MG TABLET PO SCH (09:15)
[2022-01-27] MEDS: COLLAGENASE CLOSTRIDIUM HIST. 30 GRAMS TUBE TP SCH (09:16)
[2022-01-27 09:26] LABS: BASO % 0.4 % (0-2.0); EOS % 1.5 % (0-4.5); HEMATOCRIT 36.2 % (35.4-49); LYMPH % 13.3 % (8-40); MCHC 33.3 g/dl (32.0-35.9); MEAN PLT VOLUME 8.5 fl (7.5-11.1); MONO % 7.8 % (3.8-10.2); PLATELET COUNT 323 10^3/uL (134-434); RBC 3.89 M/mm3 (4.00-5.60); RDW 13.5 % (11.9-15.9); WHITE BLOOD COUNT 8.5 K/mm3 (4.0-10.0)
[2022-01-27 09:50] LABS: CALCIUM 9.1 mg/dL (8.5-10.1)
[2022-01-27 09:51] LABS: ALBUMIN 2.7 g/dl (3.4-5.0); MAGNESIUM 1.7 mg/dL (1.8-2.4)
[2022-01-27 09:54] LABS: CREATININE 0.8 mg/dL (0.55-1.3)
[2022-01-27 09:55] LABS: BILIRUBIN,TOTAL 1.3 mg/dL (0.2-1); TOT PROT 6.7 g/dl (6.4-8.2)
[2022-01-27] MEDS: LACTOBACILLUS ACIDOPHILUS 1 TABLET PO SCH (11:37)
[2022-01-27] MEDS ORDERED: MAGNESIUM OXIDE 400 MG TABLET (FP) PO ONE (12:03)
[2022-01-27] MEDS ORDERED: ALBUTEROL SO4 2.5/IPRATROPIUM 0.5 INH SOL 3 ML VIAL.NEB. NEB SCH ×2 (13:00→16:12)
[2022-01-27] MEDS: SODIUM CHLORIDE FOR INHALATION 3 ML VIAL.NEB IH SCH ×3 (13:00→20:50)
[2022-01-27] MEDS ORDERED: HYDROCORTISONE 1% TOPICAL CREAM 30 GM TUBE TP PRN (16:11)
[2022-01-27] MEDS: ALBUTEROL SO4 2.5/IPRATROPIUM 0.5 INH SOL 3 ML VIAL.NEB. NEB SCH ×2 (16:15→20:50)
[2022-01-28] MEDS: GABAPENTIN 400 MG CAPSULE PO SCH ×3 (06:32→21:49)
[2022-01-28] MEDS: BACLOFEN 10 MG TABLET (FP) PO SCH ×3 (06:32→21:49)
[2022-01-28] MEDS: SODIUM CHLORIDE FOR INHALATION 3 ML VIAL.NEB IH SCH ×4 (08:00→20:31)
[2022-01-28] MEDS: AMINO ACIDS/PROTEIN HYDROLYS 30 ML LIQUID.PKT PO SCH ×2 (08:06→17:12)
[2022-01-28 08:07] LABS: BASO % 0.8 % (0-2.0); EOS % 2.1 % (0-4.5); HEMATOCRIT 36.4 % (35.4-49); LYMPH % 16.3 % (8-40); MCH 30.7 pg (25.7-33.7); MCHC 32.9 g/dl (32.0-35.9); MEAN CELL VOLUME 93.3 fl (80-96); MEAN PLT VOLUME 8.2 fl (7.5-11.1); MONO % 8.1 % (3.8-10.2); NEUT % 72.7 % (42.8-82.8); PLATELET COUNT 300 10^3/uL (134-434); RDW 13.4 % (11.9-15.9); WHITE BLOOD COUNT 8.4 K/mm3 (4.0-10.0)
[2022-01-28 08:21] LABS: CALCIUM 9.2 mg/dL (8.5-10.1)
[2022-01-28 08:22] LABS: ALBUMIN 2.9 g/dl (3.4-5.0); BLOOD UREA NITROGEN 18.8 mg/dL (7-18); MAGNESIUM 1.9 mg/dL (1.8-2.4)
[2022-01-28 08:25] LABS: CREATININE 0.7 mg/dL (0.55-1.3)
[2022-01-28 08:27] LABS: BILIRUBIN,TOTAL 0.8 mg/dL (0.2-1)
[2022-01-28] MEDS: ALBUTEROL SO4 2.5/IPRATROPIUM 0.5 INH SOL 3 ML VIAL.NEB. NEB SCH ×4 (08:50→20:30)
[2022-01-28] MEDS: MULTIVITAMINS (DAILY MVI) TABLET (FP) PO SCH (09:10)
[2022-01-28] MEDS: FAMOTIDINE 40 MG TABLET PO SCH (09:10)
[2022-01-28] MEDS: MIDODRINE HCL 5 MG TABLET PO SCH ×3 (09:10→17:12)
[2022-01-28] MEDS: POTASSIUM CHLORIDE TABS 20 MEQ TABLET.ER (FP) PO SCH (09:10)
[2022-01-28] MEDS: ENOXAPARIN NA (PORCINE) 40 MG/0.4 ML DISP.SYRIN SQ SCH (09:10)
[2022-01-28] MEDS: ASCORBIC ACID 250 MG TABLET (FP) PO SCH ×2 (09:10→21:49)
[2022-01-28] MEDS: ZINC SULFATE 220 MG CAPSULE (FP) PO SCH (09:10)
[2022-01-28] MEDS: LACTOBACILLUS ACIDOPHILUS 1 TABLET PO SCH (09:11)
[2022-01-28] MEDS: MAGNESIUM OXIDE 400 MG TABLET (FP) PO SCH (09:11)
[2022-01-28] MEDS: COLLAGENASE CLOSTRIDIUM HIST. 30 GRAMS TUBE TP SCH (09:11)
[2022-01-28] MEDS: ERTAPENEM SODIUM 1 GM in SODIUM CHLORIDE 50 ML IVPB SCH (10:29)
[2022-01-28] MEDS ORDERED: MAGNESIUM OXIDE 400 MG TABLET (FP) PO ONE (11:06)
[2022-01-28] MEDS ORDERED: POTASSIUM CHLORIDE TABS 20 MEQ TABLET.ER (FP) PO ONE (11:06)
[2022-01-29] MEDS: BACLOFEN 10 MG TABLET (FP) PO SCH ×3 (05:50→21:10)
[2022-01-29] MEDS: GABAPENTIN 400 MG CAPSULE PO SCH ×3 (05:50→21:10)
[2022-01-29] MEDS: ALBUTEROL SO4 2.5/IPRATROPIUM 0.5 INH SOL 3 ML VIAL.NEB. NEB SCH ×4 (07:56→20:08)
[2022-01-29] MEDS: SODIUM CHLORIDE FOR INHALATION 3 ML VIAL.NEB IH SCH ×5 (08:00→20:09)
[2022-01-29] MEDS: AMINO ACIDS/PROTEIN HYDROLYS 30 ML LIQUID.PKT PO SCH ×2 (08:26→17:22)
[2022-01-29 08:33] LABS: BASO % 0.6 % (0-2.0); EOS % 2.6 % (0-4.5); HEMATOCRIT 32.5 % (35.4-49); HEMOGLOBIN 10.9 GM/dL (11.7-16.9); LYMPH % 18.1 % (8-40); MCH 31.5 pg (25.7-33.7); MCHC 33.5 g/dl (32.0-35.9); MEAN PLT VOLUME 8.3 fl (7.5-11.1); MONO % 7.8 % (3.8-10.2); NEUT % 70.9 % (42.8-82.8); PLATELET COUNT 322 10^3/uL (134-434); RBC 3.46 M/mm3 (4.00-5.60); RDW 13.3 % (11.9-15.9); WHITE BLOOD COUNT 7.9 K/mm3 (4.0-10.0)
[2022-01-29 08:59] LABS: ALBUMIN 2.8 g/dl (3.4-5.0); BLOOD UREA NITROGEN 22.1 mg/dL (7-18); MAGNESIUM 1.9 mg/dL (1.8-2.4)
[2022-01-29 09:02] LABS: CREATININE 0.6 mg/dL (0.55-1.3)
[2022-01-29 09:03] LABS: BILIRUBIN,TOTAL 0.7 mg/dL (0.2-1)
[2022-01-29 09:04] LABS: TOT PROT 6.6 g/dl (6.4-8.2)
[2022-01-29] MEDS: ENOXAPARIN NA (PORCINE) 40 MG/0.4 ML DISP.SYRIN SQ SCH (09:56)
[2022-01-29] MEDS: MIDODRINE HCL 5 MG TABLET PO SCH ×3 (09:57→17:22)
[2022-01-29] MEDS: ERTAPENEM SODIUM 1 GM in SODIUM CHLORIDE 50 ML IVPB SCH (09:57)
[2022-01-29] MEDS: MAGNESIUM OXIDE 400 MG TABLET (FP) PO SCH (09:58)
[2022-01-29] MEDS: ZINC SULFATE 220 MG CAPSULE (FP) PO SCH (09:58)
[2022-01-29] MEDS: POTASSIUM CHLORIDE TABS 20 MEQ TABLET.ER (FP) PO SCH (09:58)
[2022-01-29] MEDS: LACTOBACILLUS ACIDOPHILUS 1 TABLET PO SCH (09:58)
[2022-01-29] MEDS: FAMOTIDINE 40 MG TABLET PO SCH (09:59)
[2022-01-29] MEDS: ASCORBIC ACID 250 MG TABLET (FP) PO SCH ×2 (10:00→21:10)
[2022-01-29] MEDS: MULTIVITAMINS (DAILY MVI) TABLET (FP) PO SCH (10:02)
[2022-01-29] MEDS: COLLAGENASE CLOSTRIDIUM HIST. 30 GRAMS TUBE TP SCH (13:17)
[2022-01-30] MEDS: BACLOFEN 10 MG TABLET (FP) PO SCH ×3 (06:03→21:19)
[2022-01-30] MEDS: GABAPENTIN 400 MG CAPSULE PO SCH ×3 (06:03→21:19)
[2022-01-30] MEDS: SODIUM CHLORIDE FOR INHALATION 3 ML VIAL.NEB IH SCH ×4 (08:14→20:34)
[2022-01-30] MEDS: ALBUTEROL SO4 2.5/IPRATROPIUM 0.5 INH SOL 3 ML VIAL.NEB. NEB SCH ×4 (08:14→20:34)
[2022-01-30] MEDS: MIDODRINE HCL 5 MG TABLET PO SCH ×3 (08:50→21:18)
[2022-01-30] MEDS: AMINO ACIDS/PROTEIN HYDROLYS 30 ML LIQUID.PKT PO SCH ×2 (08:50→17:57)
[2022-01-30 09:08] LABS: BASO % 0.9 % (0-2.0); EOS % 2.8 % (0-4.5); HEMATOCRIT 34.2 % (35.4-49); HEMOGLOBIN 11.4 GM/dL (11.7-16.9); LYMPH % 17.8 % (8-40); MCH 31.2 pg (25.7-33.7); MCHC 33.5 g/dl (32.0-35.9); MEAN CELL VOLUME 93.3 fl (80-96); MEAN PLT VOLUME 8.2 fl (7.5-11.1); MONO % 6.6 % (3.8-10.2); NEUT % 71.9 % (42.8-82.8); PLATELET COUNT 338 10^3/uL (134-434); RBC 3.66 M/mm3 (4.00-5.60); RDW 13.5 % (11.9-15.9); WHITE BLOOD COUNT 5.9 K/mm3 (4.0-10.0)
[2022-01-30 09:46] LABS: ALBUMIN 3.1 g/dl (3.4-5.0); BLOOD UREA NITROGEN 15.9 mg/dL (7-18); CALCIUM 9.6 mg/dL (8.5-10.1); MAGNESIUM 2.1 mg/dL (1.8-2.4)
[2022-01-30 09:48] LABS: CREATININE 0.5 mg/dL (0.55-1.3)
[2022-01-30 09:50] LABS: BILIRUBIN,TOTAL 0.7 mg/dL (0.2-1); TOT PROT 7.1 g/dl (6.4-8.2)
[2022-01-30] MEDS: ERTAPENEM SODIUM 1 GM in SODIUM CHLORIDE 50 ML IVPB SCH (10:17)
[2022-01-30] MEDS: FAMOTIDINE 40 MG TABLET PO SCH (10:17)
[2022-01-30] MEDS: MAGNESIUM OXIDE 400 MG TABLET (FP) PO SCH (10:18)
[2022-01-30] MEDS: LACTOBACILLUS ACIDOPHILUS 1 TABLET PO SCH (10:18)
[2022-01-30] MEDS: ZINC SULFATE 220 MG CAPSULE (FP) PO SCH (10:18)
[2022-01-30] MEDS: ENOXAPARIN NA (PORCINE) 40 MG/0.4 ML DISP.SYRIN SQ SCH (10:18)
[2022-01-30] MEDS: COLLAGENASE CLOSTRIDIUM HIST. 30 GRAMS TUBE TP SCH (10:18)
[2022-01-30] MEDS: POTASSIUM CHLORIDE TABS 20 MEQ TABLET.ER (FP) PO SCH (10:18)
[2022-01-30] MEDS: ASCORBIC ACID 250 MG TABLET (FP) PO SCH ×2 (10:18→21:19)
[2022-01-30] MEDS: MULTIVITAMINS (DAILY MVI) TABLET (FP) PO SCH (10:18)
[2022-01-31] MEDS ORDERED: ACETAMINOPHEN 325 MG TABLET (FP) PO ONE (04:56)
[2022-01-31] MEDS: GABAPENTIN 400 MG CAPSULE PO SCH ×3 (05:52→21:10)
[2022-01-31] MEDS: BACLOFEN 10 MG TABLET (FP) PO SCH ×3 (05:52→21:10)
[2022-01-31 07:56] LABS: EOS % 3.1 % (0-4.5); HEMATOCRIT 34.4 % (35.4-49); HEMOGLOBIN 11.5 GM/dL (11.7-16.9); LYMPH % 21.9 % (8-40); MCH 31.7 pg (25.7-33.7); MCHC 33.5 g/dl (32.0-35.9); MEAN CELL VOLUME 94.5 fl (80-96); MONO % 8.1 % (3.8-10.2); NEUT % 65.9 % (42.8-82.8); PLATELET COUNT 409 10^3/uL (134-434); RBC 3.64 M/mm3 (4.00-5.60); RDW 13.7 % (11.9-15.9); WHITE BLOOD COUNT 7.5 K/mm3 (4.0-10.0)
[2022-01-31] MEDS: SODIUM CHLORIDE FOR INHALATION 3 ML VIAL.NEB IH SCH ×4 (08:00→20:27)
[2022-01-31] MEDS: ALBUTEROL SO4 2.5/IPRATROPIUM 0.5 INH SOL 3 ML VIAL.NEB. NEB SCH ×4 (08:00→20:17)
[2022-01-31 08:09] LABS: CALCIUM 9.5 mg/dL (8.5-10.1)
[2022-01-31] MEDS: AMINO ACIDS/PROTEIN HYDROLYS 30 ML LIQUID.PKT PO SCH ×2 (08:09→16:30)
[2022-01-31] MEDS: MIDODRINE HCL 5 MG TABLET PO SCH ×3 (08:09→20:20)
[2022-01-31 08:10] LABS: ALBUMIN 3.1 g/dl (3.4-5.0); BLOOD UREA NITROGEN 18.2 mg/dL (7-18); MAGNESIUM 2.2 mg/dL (1.8-2.4)
[2022-01-31 08:13] LABS: BILIRUBIN,TOTAL 0.7 mg/dL (0.2-1); CREATININE 0.6 mg/dL (0.55-1.3); TOT PROT 7.3 g/dl (6.4-8.2)
[2022-01-31] MEDS: POTASSIUM CHLORIDE TABS 20 MEQ TABLET.ER (FP) PO SCH (10:14)
[2022-01-31] MEDS: LACTOBACILLUS ACIDOPHILUS 1 TABLET PO SCH (10:14)
[2022-01-31] MEDS: levoFLOXacin 750 MG TABLET PO SCH (10:14)
[2022-01-31] MEDS: COLLAGENASE CLOSTRIDIUM HIST. 30 GRAMS TUBE TP SCH (10:15)
[2022-01-31] MEDS: ZINC SULFATE 220 MG CAPSULE (FP) PO SCH (10:15)
[2022-01-31] MEDS: ENOXAPARIN NA (PORCINE) 40 MG/0.4 ML DISP.SYRIN SQ SCH (10:15)
[2022-01-31] MEDS: FAMOTIDINE 40 MG TABLET PO SCH (10:15)
[2022-01-31] MEDS: ASCORBIC ACID 250 MG TABLET (FP) PO SCH ×2 (10:16→22:02)
[2022-01-31] MEDS: MULTIVITAMINS (DAILY MVI) TABLET (FP) PO SCH (10:16)
[2022-01-31] MEDS ORDERED: LOPERAMIDE HCL 2 MG CAPSULE PO ONE (20:55)
[2022-01-31] MEDS ORDERED: SODIUM CHLORIDE 250 ML IV STA (20:58)
[2022-02-01] MEDS: GABAPENTIN 400 MG CAPSULE PO SCH (06:05)
[2022-02-01] MEDS: BACLOFEN 10 MG TABLET (FP) PO SCH (06:05)
[2022-02-01] MEDS: ALBUTEROL SO4 2.5/IPRATROPIUM 0.5 INH SOL 3 ML VIAL.NEB. NEB SCH ×2 (07:34→11:40)
[2022-02-01] MEDS: SODIUM CHLORIDE FOR INHALATION 3 ML VIAL.NEB IH SCH (09:14)
[2022-02-01] MEDS: MIDODRINE HCL 5 MG TABLET PO SCH (09:16)
[2022-02-01] MEDS: levoFLOXacin 750 MG TABLET PO SCH (09:16)
[2022-02-01] MEDS: MULTIVITAMINS (DAILY MVI) TABLET (FP) PO SCH (09:16)
[2022-02-01] MEDS: POTASSIUM CHLORIDE TABS 20 MEQ TABLET.ER (FP) PO SCH (09:16)
[2022-02-01] MEDS: ZINC SULFATE 220 MG CAPSULE (FP) PO SCH (09:16)
[2022-02-01] MEDS: FAMOTIDINE 40 MG TABLET PO SCH (09:16)
[2022-02-01] MEDS: ASCORBIC ACID 250 MG TABLET (FP) PO SCH (09:16)
[2022-02-01] MEDS: AMINO ACIDS/PROTEIN HYDROLYS 30 ML LIQUID.PKT PO SCH (09:17)
[2022-02-01] MEDS: LACTOBACILLUS ACIDOPHILUS 1 TABLET PO SCH (09:17)
[2022-02-01 11:15] VITALS: BP 90/59; PULSE 97; RESP 18; TEMP 98.4
== END 2022-02-01 13:32 | disposition home health service (06) | DRG 720 ==
LOC: JER 11:54 → JERBED 12:32 → J4S 01-24 22:38
PROVIDERS: ADMIT Internal Medicine; ATTEND Nurse Practitioner Family
DX: A41.89 Other specified sepsis (principal); R00.0 Tachycardia, unspecified; E87.2 Acidosis; N39.0 Urinary tract infection, site not specified; G82.20 Paraplegia, unspecified; M21.371 Foot drop, right foot; R50.9 Fever, unspecified; M21.372 Foot drop, left foot; I24.8 Other forms of acute ischemic heart disease; J18.9 Pneumonia, unspecified organism; L89.153 Pressure ulcer of sacral region, stage 3; L89.223 Pressure ulcer of left hip, stage 3; N17.9 Acute kidney failure, unspecified; B96.89 Other specified bacterial agents as the cause of diseases classified elsewhere; D72.829 Elevated white blood cell count, unspecified; R09.02 Hypoxemia; N20.0 Calculus of kidney; G89.29 Other chronic pain; E87.6 Hypokalemia; R77.8 Other specified abnormalities of plasma proteins; Z87.828 Personal history of other (healed) physical injury and trauma; Z86.718 Personal history of other venous thrombosis and embolism
CPT/HCPCS: 36415; 71045-TC-FY; 71275-TC; 80048; 80053; 80061; 81003; 82550; 82553; 82803; 83605; 83735; 83880; 84100; 84443; 84484; 85025; 85610; 85730; 86850; 86900; 86901; 87040; 87070; 87086; 87186; 87205; 87899; 93005; 93010; 93306-TC; 94640; 97161-GP; 99285-25; C9803-CS; J0475; Q9967; U0003; U0005

== ENCOUNTER 2022-03-21 11:10 | Inpatient (IN) | payer OTHER ==
[2022-03-21 11:31] VITALS: BMI 22.1
[2022-03-21] MEDS ORDERED: VANCOMYCIN 1 GM in D5W (PRE-DOCKED) 1,000 MG/250 ML IVPB ONE (11:46)
[2022-03-21] MEDS ORDERED: SODIUM CHLORIDE 1,000 ML IV STA ×2 (11:46→15:12)
[2022-03-21] MEDS ORDERED: PIPERACILLIN/TAZOB 4.5 GM 4.5 GM in DEXTROSE 5%-WATER 100 ML IVPB ONE (11:47)
[2022-03-21] MEDS ORDERED: VANCOMYCIN/WATER FOR INJ (PEG) 1,000 MG/200 ML BAG IVPB ONE (12:31)
[2022-03-21] MEDS ORDERED: PIPERACILLIN/TAZOB 4.5 GM 4.5 GM/100 ML BAG IVPB ONE (12:31)
[2022-03-21 12:40] LABS: VENOUS BASE EXCESS 4.6 mmol/L (-2-2); VENOUS O2 SATURATION 54.4 % (70-80); VENOUS PCO2 43.5 mmHg (38-52); VENOUS PH 7.446 (7.310-7.410)
[2022-03-21 12:42] LABS: BASO % 0.2 % (0-2.0); HEMATOCRIT 40.4 % (35.4-49); HEMOGLOBIN 13.4 GM/dL (11.7-16.9); LYMPH % 3.4 % (8-40); MCH 30.6 pg (25.7-33.7); MCHC 33.2 g/dl (32.0-35.9); MEAN CELL VOLUME 92.1 fl (80-96); MEAN PLT VOLUME 9.1 fl (7.5-11.1); MONO % 6.2 % (3.8-10.2); NEUT % 90.2 % (42.8-82.8); PLATELET COUNT 279 10^3/uL (134-434); RBC 4.38 M/mm3 (4.00-5.60); RDW 14.1 % (11.9-15.9); WHITE BLOOD COUNT 18.6 K/mm3 (4.0-10.0)
[2022-03-21] MEDS ORDERED: ACETAMINOPHEN 1000 MG/100 ML BAG IVPB ONE ×2 (12:47→12:50)
[2022-03-21 12:52] LABS: ACTIVATED PTT 33.6 SECONDS (25.2-36.5); INR 1.42 (0.83-1.09); PROTHROMBIN TIME (PATIENT) 16.4 SEC (9.7-13.0)
[2022-03-21 12:56] LABS: CHLORIDE 100 mmol/L (98-107); SODIUM 138 mmol/L (136-145)
[2022-03-21 12:59] LABS: CALCIUM 9.7 mg/dL (8.5-10.1)
[2022-03-21 13:00] LABS: ALBUMIN 3.1 g/dl (3.4-5.0); ANION GAP 10 MMOL/L (8-16); BLOOD UREA NITROGEN 7.8 mg/dL (7-18); CO2 27 mmol/L (21-32); GLUCOSE,RANDOM 136 mg/dL (74-106)
[2022-03-21 13:03] LABS: CREATININE 0.8 mg/dL (0.55-1.3); SGOT/AST 41 U/L (15-37); SGPT/ALT 30 U/L (13-61)
[2022-03-21 13:05] LABS: BILIRUBIN,TOTAL 1.2 mg/dL (0.2-1); TOT PROT 8.8 g/dl (6.4-8.2)
[2022-03-21 13:06] LABS: ALK PHOS 100 U/L (45-117)
[2022-03-21] MEDS ORDERED: ONDANSETRON 4 MG/2 ML VIAL IVPUSH ONE (13:20)
[2022-03-21] MEDS ORDERED: ONDANSETRON 4 MG/2 ML VIAL ONE ×3 (13:23→20:39)
[2022-03-21] MEDS ORDERED: SODIUM CHLORIDE 2,000 ML IV ONE (14:10)
[2022-03-21] MEDS ORDERED: ACETAMINOPHEN 1000 MG/100 ML BAG IVPB PRN (15:15)
[2022-03-21] MEDS ORDERED: ALBUTEROL SO4 HFA INHALER IH PRN (15:17)
[2022-03-21] MEDS: SODIUM CHLORIDE 1,000 ML IV SCH (16:13)
[2022-03-21] MEDS: MIDODRINE HCL 5 MG TABLET PO SCH ×2 (16:55→20:37)
[2022-03-21] MEDS ORDERED: PIPERACILLIN/TAZOB 3.375 GM 3.375 GM in DEXTROSE 5%-WATER - 50 ML IVPB SCH (18:00)
[2022-03-21 18:08] LABS: EPI CELLS 19 /uL (0-25.1); HYALINE CASTS 30 /uL (0-3.1); URINE APPEARANCE TURBID; URINE BACTERIA 3384 /uL (0-1359); URINE BILIRUBIN NEGATIVE (NEGATIVE); URINE COLOR YELLOW; URINE GLUCOSE (UA) NEGATIVE (NEGATIVE); URINE KETONE TRACE (NEGATIVE); URINE LEUK ESTERASE 3+ (NEGATIVE); URINE NITRITE POSITIVE (NEGATIVE); URINE PROTEIN 1+ (NEGATIVE); URINE WBC 4702 /uL (0-25.8)
[2022-03-21 18:36] LABS: LIPASE 120 U/L (73-393)
[2022-03-21 18:39] LABS: URINE RBC 94.5 /uL (0-23.9)
[2022-03-21 18:40] LABS: YEAST MODERATE (NEGATIVE)
[2022-03-21] MEDS ORDERED: MEROPENEM 1 GM VIAL (RESTRICTED TO ID) IVPB ONE (20:39)
[2022-03-21] MEDS: ONDANSETRON 4 MG/2 ML VIAL IVPUSH PRN (20:56)
[2022-03-21] MEDS: MEROPENEM 1 GM in DEXTROSE 5%-WATER 100 ML IVPB SCH (20:56)
[2022-03-21] MEDS ORDERED: BACLOFEN 10 MG TABLET (FP) ONE (21:51)
[2022-03-21] MEDS ORDERED: GABAPENTIN 400 MG CAPSULE ONE (21:52)
[2022-03-21] MEDS: SENNOSIDES 8.6MG TABLET (FP) PO SCH (21:59)
[2022-03-21] MEDS: DOCUSATE SODIUM 100 MG CAPSULE (FP) PO SCH (21:59)
[2022-03-21] MEDS: POLYETHYLENE GLYCOL (HEALTHYLAX) 3350 17 GM PACKET PO SCH (21:59)
[2022-03-21] MEDS: BACLOFEN 10 MG TABLET (FP) PO SCH (21:59)
[2022-03-21] MEDS: GABAPENTIN 400 MG CAPSULE PO SCH (21:59)
[2022-03-22] MEDS ORDERED: VANCOMYCIN/WATER FOR INJ (PEG) 1,000 MG/200 ML BAG IVPB ONE ×2 (01:23→12:00)
[2022-03-22] MEDS: VANCOMYCIN/WATER FOR INJ (PEG) 1,000 MG/200 ML BAG IVPB SCH ×2 (02:05→14:18)
[2022-03-22] MEDS ORDERED: LIDOCAINE HCL 2% JELLY 11 ML TP ONE (03:12)
[2022-03-22] MEDS ORDERED: MEROPENEM 1 GM VIAL (RESTRICTED TO ID) IVPB ONE ×3 (03:59→18:41)
[2022-03-22] MEDS ORDERED: ONDANSETRON 4 MG/2 ML VIAL ONE (03:59)
[2022-03-22] MEDS: ONDANSETRON 4 MG/2 ML VIAL IVPUSH PRN (04:13)
[2022-03-22] MEDS: MEROPENEM 1 GM in DEXTROSE 5%-WATER 100 ML IVPB SCH ×3 (04:13→18:59)
[2022-03-22] MEDS ORDERED: GABAPENTIN 400 MG CAPSULE ONE ×2 (05:56→15:01)
[2022-03-22] MEDS ORDERED: BACLOFEN 10 MG TABLET (FP) ONE ×2 (05:56→15:01)
[2022-03-22] MEDS: GABAPENTIN 400 MG CAPSULE PO SCH ×3 (06:15→22:40)
[2022-03-22] MEDS: BACLOFEN 10 MG TABLET (FP) PO SCH ×3 (06:15→22:40)
[2022-03-22 08:06] LABS: HEMATOCRIT 34.6 % (35.4-49); HEMOGLOBIN 11.5 GM/dL (11.7-16.9); MCH 30.8 pg (25.7-33.7); MCHC 33.3 g/dl (32.0-35.9); MEAN CELL VOLUME 92.7 fl (80-96); MEAN PLT VOLUME 9.4 fl (7.5-11.1); PLATELET COUNT 237 10^3/uL (134-434); RBC 3.73 M/mm3 (4.00-5.60); RDW 14.2 % (11.9-15.9); WHITE BLOOD COUNT 23.3 K/mm3 (4.0-10.0)
[2022-03-22 08:23] LABS: ALBUMIN 2.6 g/dl (3.4-5.0); CALCIUM 8.6 mg/dL (8.5-10.1)
[2022-03-22 08:24] LABS: BLOOD UREA NITROGEN 7.9 mg/dL (7-18)
[2022-03-22 08:26] LABS: BILIRUBIN,TOTAL 0.8 mg/dL (0.2-1); CREATININE 0.6 mg/dL (0.55-1.3); PHOSPHOROUS 2.6 mg/dL (2.5-4.9); TOT PROT 7.2 g/dl (6.4-8.2)
[2022-03-22 09:49] LABS: ANISOCYTOSIS 2+; MACROCYTOSIS 1+; PLATELET ESTIMATE NORMAL
[2022-03-22] MEDS ORDERED: VANCOMYCIN 1 GM in D5W (PRE-DOCKED) 1,000 MG/250 ML IVPB SCH (10:00)
[2022-03-22] MEDS ORDERED: POLYETHYLENE GLYCOL (HEALTHYLAX) 3350 17 GM PACKET ONE (10:01)
[2022-03-22] MEDS ORDERED: ENOXAPARIN NA (PORCINE) 40 MG/0.4 ML DISP.SYRIN SQ ONE (10:02)
[2022-03-22] MEDS: POLYETHYLENE GLYCOL (HEALTHYLAX) 3350 17 GM PACKET PO SCH ×2 (10:08→22:52)
[2022-03-22] MEDS: ENOXAPARIN NA (PORCINE) 40 MG/0.4 ML DISP.SYRIN SQ SCH (10:08)
[2022-03-22] MEDS ORDERED: VANCOMYCIN 1 GM/200 ML PREMIX BAG IVPB SCH (12:00)
[2022-03-22] MEDS: MIDODRINE HCL 5 MG TABLET PO SCH ×3 (13:00→18:59)
[2022-03-22] MEDS: SODIUM CHLORIDE 1,000 ML IV SCH (14:18)
[2022-03-22] MEDS ORDERED: POTASSIUM CHLORIDE TABS 20 MEQ TABLET.ER (FP) PO ONE ×2 (16:39→16:48)
[2022-03-22] MEDS: DOCUSATE SODIUM 100 MG CAPSULE (FP) PO SCH (22:52)
[2022-03-22] MEDS: SENNOSIDES 8.6MG TABLET (FP) PO SCH (22:52)
[2022-03-23] MEDS: MEROPENEM 1 GM in DEXTROSE 5%-WATER 100 ML IVPB SCH ×2 (01:24→09:58)
[2022-03-23] MEDS: VANCOMYCIN/WATER FOR INJ (PEG) 1,000 MG/200 ML BAG IVPB SCH ×2 (02:02→13:09)
[2022-03-23] MEDS: BACLOFEN 10 MG TABLET (FP) PO SCH ×3 (06:23→22:24)
[2022-03-23] MEDS: GABAPENTIN 400 MG CAPSULE PO SCH ×3 (06:23→22:24)
[2022-03-23] MEDS: POLYETHYLENE GLYCOL (HEALTHYLAX) 3350 17 GM PACKET PO SCH ×2 (09:58→22:24)
[2022-03-23] MEDS: MIDODRINE HCL 5 MG TABLET PO SCH ×3 (09:58→18:27)
[2022-03-23] MEDS: ENOXAPARIN NA (PORCINE) 40 MG/0.4 ML DISP.SYRIN SQ SCH (09:58)
[2022-03-23] MEDS ORDERED: LACTATED RINGERS SOLUTION 1,000 ML/1,000 ML INFUS.BAG IV SCH (12:15)
[2022-03-23] MEDS: MAGNESIUM HYDROX 2400MG/30ML ORAL SUSPENSION 30 ML CUP PO SCH (13:09)
[2022-03-23] MEDS: ACETAMINOPHEN 325 MG TABLET (FP) PO PRN ×2 (17:30→22:38)
[2022-03-23] MEDS: AMINO ACIDS/PROTEIN HYDROLYS 30 ML LIQUID.PKT PO SCH (17:42)
[2022-03-23] MEDS: PIPERACILLIN/TAZOB 4.5 GM 4.5 GM in DEXTROSE 5%-WATER 100 ML IVPB SCH (17:43)
[2022-03-23] MEDS: SENNOSIDES 8.6MG TABLET (FP) PO SCH (22:24)
[2022-03-24] MEDS: PIPERACILLIN/TAZOB 4.5 GM 4.5 GM in DEXTROSE 5%-WATER 100 ML IVPB SCH ×3 (01:14→17:06)
[2022-03-24] MEDS: MAGNESIUM HYDROX 2400MG/30ML ORAL SUSPENSION 30 ML CUP PO SCH ×2 (01:14→12:37)
[2022-03-24] MEDS: BACLOFEN 10 MG TABLET (FP) PO SCH ×3 (06:13→21:13)
[2022-03-24] MEDS: GABAPENTIN 400 MG CAPSULE PO SCH ×3 (06:13→21:13)
[2022-03-24 08:29] LABS: BASO % 0.3 % (0-2.0); EOS % 0.2 % (0-4.5); HEMATOCRIT 30.3 % (35.4-49); LYMPH % 5.9 % (8-40); MCH 30.1 pg (25.7-33.7); MCHC 33.1 g/dl (32.0-35.9); MEAN CELL VOLUME 90.9 fl (80-96); MEAN PLT VOLUME 9.5 fl (7.5-11.1); MONO % 7.7 % (3.8-10.2); NEUT % 85.9 % (42.8-82.8); PLATELET COUNT 302 10^3/uL (134-434); RBC 3.33 M/mm3 (4.00-5.60); RDW 14.6 % (11.9-15.9); WHITE BLOOD COUNT 13.7 K/mm3 (4.0-10.0)
[2022-03-24] MEDS: AMINO ACIDS/PROTEIN HYDROLYS 30 ML LIQUID.PKT PO SCH ×2 (08:32→17:03)
[2022-03-24] MEDS: ACETAMINOPHEN 325 MG TABLET (FP) PO PRN ×2 (08:33→17:05)
[2022-03-24 08:48] LABS: CHLORIDE 103 mmol/L (98-107); SODIUM 140 mmol/L (136-145)
[2022-03-24 08:54] LABS: ALBUMIN 2.2 g/dl (3.4-5.0); BLOOD UREA NITROGEN 5.9 mg/dL (7-18); CALCIUM 8.5 mg/dL (8.5-10.1); CO2 28 mmol/L (21-32); GLUCOSE,RANDOM 112 mg/dL (74-106)
[2022-03-24 08:56] LABS: SGPT/ALT 36 U/L (13-61)
[2022-03-24 08:59] LABS: BILIRUBIN,TOTAL 0.9 mg/dL (0.2-1); CREATININE 0.5 mg/dL (0.55-1.3); SGOT/AST 26 U/L (15-37); TOT PROT 6.4 g/dl (6.4-8.2)
[2022-03-24 09:00] LABS: ALK PHOS 97 U/L (45-117)
[2022-03-24 09:07] LABS: ANION GAP 9 MMOL/L (8-16)
[2022-03-24] MEDS: MIDODRINE HCL 5 MG TABLET PO SCH ×4 (09:22→17:06)
[2022-03-24] MEDS: ENOXAPARIN NA (PORCINE) 40 MG/0.4 ML DISP.SYRIN SQ SCH (09:34)
[2022-03-24] MEDS: MULTIVITAMINS THER W-MINERALS COMBO TABLET (FP) PO SCH (09:35)
[2022-03-24] MEDS: POLYETHYLENE GLYCOL (HEALTHYLAX) 3350 17 GM PACKET PO SCH ×2 (09:35→21:13)
[2022-03-24] MEDS: POTASSIUM CHLORIDE TABS 20 MEQ TABLET.ER (FP) PO SCH ×2 (11:09→14:56)
[2022-03-24] MEDS ORDERED: MAG HYDROX/AL HYDROX/SIMETH 30 ML UNIT-DOSE CUP PO PRN (15:59)
[2022-03-24] MEDS ORDERED: PIPERACILLIN/TAZOBACTAM 4.5 GM VIAL IVPB ONE (17:03)
[2022-03-24] MEDS ORDERED: POTASSIUM CHLORIDE TABS 20 MEQ TABLET.ER (FP) PO ONE (20:00)
[2022-03-24] MEDS: SENNOSIDES 8.6MG TABLET (FP) PO SCH (21:13)
[2022-03-25] MEDS: ONDANSETRON 4 MG/2 ML VIAL IVPUSH PRN (00:17)
[2022-03-25] MEDS: MAGNESIUM HYDROX 2400MG/30ML ORAL SUSPENSION 30 ML CUP PO SCH ×2 (00:21→11:42)
[2022-03-25] MEDS: PIPERACILLIN/TAZOB 4.5 GM 4.5 GM in DEXTROSE 5%-WATER 100 ML IVPB SCH ×3 (01:20→17:47)
[2022-03-25] MEDS: GABAPENTIN 400 MG CAPSULE PO SCH ×3 (06:15→21:28)
[2022-03-25] MEDS: BACLOFEN 10 MG TABLET (FP) PO SCH ×3 (06:15→21:28)
[2022-03-25 09:18] LABS: BASO % 0.3 % (0-2.0); EOS % 0.5 % (0-4.5); HEMATOCRIT 29.8 % (35.4-49); HEMOGLOBIN 9.8 GM/dL (11.7-16.9); LYMPH % 8.4 % (8-40); MCH 29.8 pg (25.7-33.7); MCHC 32.9 g/dl (32.0-35.9); MEAN CELL VOLUME 90.6 fl (80-96); MEAN PLT VOLUME 8.8 fl (7.5-11.1); MONO % 6.8 % (3.8-10.2); PLATELET COUNT 360 10^3/uL (134-434); RBC 3.29 M/mm3 (4.00-5.60); RDW 14.6 % (11.9-15.9); WHITE BLOOD COUNT 14.9 K/mm3 (4.0-10.0)
[2022-03-25 09:42] LABS: CALCIUM 8.6 mg/dL (8.5-10.1)
[2022-03-25 09:44] LABS: ALBUMIN 2.1 g/dl (3.4-5.0); BLOOD UREA NITROGEN 5.7 mg/dL (7-18)
[2022-03-25 09:46] LABS: CREATININE 0.5 mg/dL (0.55-1.3); PHOSPHOROUS 2.2 mg/dL (2.5-4.9)
[2022-03-25 09:48] LABS: BILIRUBIN,TOTAL 0.7 mg/dL (0.2-1); TOT PROT 6.3 g/dl (6.4-8.2)
[2022-03-25] MEDS: POLYETHYLENE GLYCOL (HEALTHYLAX) 3350 17 GM PACKET PO SCH ×2 (10:52→21:28)
[2022-03-25] MEDS: MULTIVITAMINS THER W-MINERALS COMBO TABLET (FP) PO SCH (10:53)
[2022-03-25] MEDS: AMINO ACIDS/PROTEIN HYDROLYS 30 ML LIQUID.PKT PO SCH ×2 (10:53→16:38)
[2022-03-25] MEDS: MIDODRINE HCL 5 MG TABLET PO SCH ×3 (10:53→17:48)
[2022-03-25] MEDS: ENOXAPARIN NA (PORCINE) 40 MG/0.4 ML DISP.SYRIN SQ SCH (10:53)
[2022-03-25] MEDS ORDERED: POTASSIUM CHLORIDE TABS 10 MEQ TABLET.ER (FP) PO ONE (14:52)
[2022-03-25] MEDS: SENNOSIDES 8.6MG TABLET (FP) PO SCH (21:29)
[2022-03-26] MEDS: MAGNESIUM HYDROX 2400MG/30ML ORAL SUSPENSION 30 ML CUP PO SCH ×2 (01:23→11:56)
[2022-03-26] MEDS: PIPERACILLIN/TAZOB 4.5 GM 4.5 GM in DEXTROSE 5%-WATER 100 ML IVPB SCH ×3 (03:39→17:24)
[2022-03-26] MEDS: GABAPENTIN 400 MG CAPSULE PO SCH ×3 (05:45→22:09)
[2022-03-26] MEDS: BACLOFEN 10 MG TABLET (FP) PO SCH ×3 (05:45→22:09)
[2022-03-26] MEDS: AMINO ACIDS/PROTEIN HYDROLYS 30 ML LIQUID.PKT PO SCH ×2 (07:56→17:07)
[2022-03-26 08:01] LABS: BASO % 0.5 % (0-2.0); EOS % 1.4 % (0-4.5); HEMATOCRIT 28.6 % (35.4-49); HEMOGLOBIN 9.4 GM/dL (11.7-16.9); LYMPH % 12.2 % (8-40); MCH 29.8 pg (25.7-33.7); MCHC 32.8 g/dl (32.0-35.9); MEAN CELL VOLUME 90.7 fl (80-96); MEAN PLT VOLUME 8.8 fl (7.5-11.1); MONO % 7.7 % (3.8-10.2); NEUT % 78.2 % (42.8-82.8); PLATELET COUNT 386 10^3/uL (134-434); RBC 3.16 M/mm3 (4.00-5.60); WHITE BLOOD COUNT 11.7 K/mm3 (4.0-10.0)
[2022-03-26] MEDS: TAMSULOSIN HCL 0.4 MG CAP PO SCH (08:02)
[2022-03-26 08:38] LABS: ALBUMIN 2.1 g/dl (3.4-5.0); CALCIUM 8.5 mg/dL (8.5-10.1)
[2022-03-26 08:41] LABS: CREATININE 0.5 mg/dL (0.55-1.3)
[2022-03-26 08:43] LABS: BILIRUBIN,TOTAL 0.6 mg/dL (0.2-1); TOT PROT 6.3 g/dl (6.4-8.2)
[2022-03-26] MEDS: POLYETHYLENE GLYCOL (HEALTHYLAX) 3350 17 GM PACKET PO SCH ×2 (09:25→22:09)
[2022-03-26] MEDS: ENOXAPARIN NA (PORCINE) 40 MG/0.4 ML DISP.SYRIN SQ SCH (10:19)
[2022-03-26] MEDS: MIDODRINE HCL 5 MG TABLET PO SCH ×3 (10:19→17:24)
[2022-03-26] MEDS: MULTIVITAMINS THER W-MINERALS COMBO TABLET (FP) PO SCH (10:19)
[2022-03-26] MEDS: ALBUTEROL SO4 2.5/IPRATROPIUM 0.5 INH SOL 3 ML VIAL.NEB. NEB SCH ×2 (17:09→20:26)
[2022-03-26] MEDS: POTASSIUM CHLORIDE ORAL LIQUID 20 MEQ/15 ML PO SCH ×2 (17:24→22:09)
[2022-03-26] MEDS: SENNOSIDES 8.6MG TABLET (FP) PO SCH (22:09)
[2022-03-27] MEDS: MAGNESIUM HYDROX 2400MG/30ML ORAL SUSPENSION 30 ML CUP PO SCH ×2 (00:23→14:34)
[2022-03-27] MEDS: PIPERACILLIN/TAZOB 4.5 GM 4.5 GM in DEXTROSE 5%-WATER 100 ML IVPB SCH ×3 (01:36→18:04)
[2022-03-27] MEDS: GABAPENTIN 400 MG CAPSULE PO SCH ×3 (06:36→22:28)
[2022-03-27] MEDS: BACLOFEN 10 MG TABLET (FP) PO SCH ×3 (06:36→22:28)
[2022-03-27] MEDS: ALBUTEROL SO4 2.5/IPRATROPIUM 0.5 INH SOL 3 ML VIAL.NEB. NEB SCH ×4 (07:25→20:05)
[2022-03-27] MEDS: TAMSULOSIN HCL 0.4 MG CAP PO SCH (08:49)
[2022-03-27] MEDS: AMINO ACIDS/PROTEIN HYDROLYS 30 ML LIQUID.PKT PO SCH ×2 (08:49→18:04)
[2022-03-27 08:56] LABS: BASO % 0.4 % (0-2.0); EOS % 3.1 % (0-4.5); HEMATOCRIT 27.9 % (35.4-49); HEMOGLOBIN 9.4 GM/dL (11.7-16.9); LYMPH % 12.3 % (8-40); MCH 30.8 pg (25.7-33.7); MCHC 33.8 g/dl (32.0-35.9); MEAN CELL VOLUME 90.9 fl (80-96); MEAN PLT VOLUME 7.8 fl (7.5-11.1); MONO % 8.1 % (3.8-10.2); NEUT % 76.1 % (42.8-82.8); PLATELET COUNT 379 10^3/uL (134-434); RBC 3.07 M/mm3 (4.00-5.60); RDW 15.1 % (11.9-15.9); WHITE BLOOD COUNT 8.7 K/mm3 (4.0-10.0)
[2022-03-27] MEDS: MIDODRINE HCL 5 MG TABLET PO SCH ×3 (09:01→18:04)
[2022-03-27] MEDS: ENOXAPARIN NA (PORCINE) 40 MG/0.4 ML DISP.SYRIN SQ SCH (09:01)
[2022-03-27] MEDS: POLYETHYLENE GLYCOL (HEALTHYLAX) 3350 17 GM PACKET PO SCH ×2 (09:01→22:28)
[2022-03-27 09:22] LABS: CALCIUM 8.5 mg/dL (8.5-10.1)
[2022-03-27 09:23] LABS: BLOOD UREA NITROGEN 4.7 mg/dL (7-18)
[2022-03-27 09:26] LABS: BILIRUBIN,DIRECT 0.2 mg/dL (0.0-0.2); CREATININE 0.4 mg/dL (0.55-1.3)
[2022-03-27 09:27] LABS: BILIRUBIN,TOTAL 0.5 mg/dL (0.2-1); TOT PROT 6.4 g/dl (6.4-8.2)
[2022-03-27] MEDS: MULTIVITAMINS THER W-MINERALS COMBO TABLET (FP) PO SCH (11:38)
[2022-03-27] MEDS: SENNOSIDES 8.6MG TABLET (FP) PO SCH (22:28)
[2022-03-28] MEDS: MAGNESIUM HYDROX 2400MG/30ML ORAL SUSPENSION 30 ML CUP PO SCH ×3 (00:15→23:30)
[2022-03-28] MEDS: PIPERACILLIN/TAZOB 4.5 GM 4.5 GM in DEXTROSE 5%-WATER 100 ML IVPB SCH ×3 (01:46→17:00)
[2022-03-28] MEDS: GABAPENTIN 400 MG CAPSULE PO SCH ×3 (06:09→21:31)
[2022-03-28] MEDS: BACLOFEN 10 MG TABLET (FP) PO SCH ×3 (06:09→21:31)
[2022-03-28] MEDS: TAMSULOSIN HCL 0.4 MG CAP PO SCH (08:25)
[2022-03-28] MEDS: AMINO ACIDS/PROTEIN HYDROLYS 30 ML LIQUID.PKT PO SCH ×2 (08:25→16:55)
[2022-03-28] MEDS: ALBUTEROL SO4 2.5/IPRATROPIUM 0.5 INH SOL 3 ML VIAL.NEB. NEB SCH ×4 (08:55→20:05)
[2022-03-28] MEDS: ENOXAPARIN NA (PORCINE) 40 MG/0.4 ML DISP.SYRIN SQ SCH (09:16)
[2022-03-28] MEDS: MIDODRINE HCL 5 MG TABLET PO SCH ×3 (09:17→17:00)
[2022-03-28] MEDS: POLYETHYLENE GLYCOL (HEALTHYLAX) 3350 17 GM PACKET PO SCH ×2 (09:17→21:37)
[2022-03-28] MEDS: MULTIVITAMINS THER W-MINERALS COMBO TABLET (FP) PO SCH (09:19)
[2022-03-28] MEDS ORDERED: BUPIVACAINE HCL/PF 0.25% (2.5MG/ML) 10 ML VIAL ONE (13:18)
[2022-03-28] MEDS: COLLAGENASE CLOSTRIDIUM HIST. 30 GRAMS TUBE TP SCH (22:20)
[2022-03-29] MEDS: PIPERACILLIN/TAZOB 4.5 GM 4.5 GM in DEXTROSE 5%-WATER 100 ML IVPB SCH ×3 (01:14→17:07)
[2022-03-29] MEDS: BACLOFEN 10 MG TABLET (FP) PO SCH ×3 (06:37→21:00)
[2022-03-29] MEDS: GABAPENTIN 400 MG CAPSULE PO SCH ×3 (06:37→21:00)
[2022-03-29] MEDS: ALBUTEROL SO4 2.5/IPRATROPIUM 0.5 INH SOL 3 ML VIAL.NEB. NEB SCH ×4 (07:46→20:10)
[2022-03-29] MEDS: TAMSULOSIN HCL 0.4 MG CAP PO SCH (08:11)
[2022-03-29] MEDS: AMINO ACIDS/PROTEIN HYDROLYS 30 ML LIQUID.PKT PO SCH ×2 (08:11→17:08)
[2022-03-29] MEDS: MIDODRINE HCL 5 MG TABLET PO SCH ×3 (09:30→17:07)
[2022-03-29] MEDS: ENOXAPARIN NA (PORCINE) 40 MG/0.4 ML DISP.SYRIN SQ SCH (09:30)
[2022-03-29] MEDS: POLYETHYLENE GLYCOL (HEALTHYLAX) 3350 17 GM PACKET PO SCH ×2 (09:38→21:00)
[2022-03-29] MEDS: COLLAGENASE CLOSTRIDIUM HIST. 30 GRAMS TUBE TP SCH (09:38)
[2022-03-29] MEDS: MULTIVITAMINS THER W-MINERALS COMBO TABLET (FP) PO SCH (10:47)
[2022-03-29] MEDS: MAGNESIUM HYDROX 2400MG/30ML ORAL SUSPENSION 30 ML CUP PO SCH (13:03)
[2022-03-30] MEDS: MAGNESIUM HYDROX 2400MG/30ML ORAL SUSPENSION 30 ML CUP PO SCH ×2 (00:23→14:12)
[2022-03-30] MEDS: PIPERACILLIN/TAZOB 4.5 GM 4.5 GM in DEXTROSE 5%-WATER 100 ML IVPB SCH ×3 (01:02→17:29)
[2022-03-30] MEDS: BACLOFEN 10 MG TABLET (FP) PO SCH ×3 (06:46→21:58)
[2022-03-30] MEDS: GABAPENTIN 400 MG CAPSULE PO SCH ×3 (06:46→21:58)
[2022-03-30] MEDS: ALBUTEROL SO4 2.5/IPRATROPIUM 0.5 INH SOL 3 ML VIAL.NEB. NEB SCH ×4 (08:36→20:29)
[2022-03-30] MEDS: TAMSULOSIN HCL 0.4 MG CAP PO SCH (08:42)
[2022-03-30] MEDS: AMINO ACIDS/PROTEIN HYDROLYS 30 ML LIQUID.PKT PO SCH ×2 (08:43→17:29)
[2022-03-30 09:17] LABS: INR 1.21 (0.83-1.09)
[2022-03-30 09:20] LABS: BASO % 0.9 % (0-2.0); EOS % 6.9 % (0-4.5); HEMATOCRIT 28.5 % (35.4-49); HEMOGLOBIN 9.5 GM/dL (11.7-16.9); LYMPH % 14.2 % (8-40); MCH 30.3 pg (25.7-33.7); MCHC 33.3 g/dl (32.0-35.9); MEAN CELL VOLUME 91.1 fl (80-96); MEAN PLT VOLUME 7.6 fl (7.5-11.1); PLATELET COUNT 523 10^3/uL (134-434); RBC 3.13 M/mm3 (4.00-5.60); RDW 15.5 % (11.9-15.9); WHITE BLOOD COUNT 8.5 K/mm3 (4.0-10.0)
[2022-03-30 09:40] LABS: ALBUMIN 2.3 g/dl (3.4-5.0); CALCIUM 8.8 mg/dL (8.5-10.1)
[2022-03-30 09:42] LABS: BLOOD UREA NITROGEN 6.9 mg/dL (7-18)
[2022-03-30] MEDS: MIDODRINE HCL 5 MG TABLET PO SCH ×3 (09:43→17:29)
[2022-03-30] MEDS: MULTIVITAMINS THER W-MINERALS COMBO TABLET (FP) PO SCH (09:43)
[2022-03-30 09:44] LABS: BILIRUBIN,DIRECT 0.1 mg/dL (0.0-0.2); CREATININE 0.6 mg/dL (0.55-1.3)
[2022-03-30 09:45] LABS: BILIRUBIN,TOTAL 0.2 mg/dL (0.2-1); TOT PROT 6.8 g/dl (6.4-8.2)
[2022-03-30] MEDS: COLLAGENASE CLOSTRIDIUM HIST. 30 GRAMS TUBE TP SCH (09:47)
[2022-03-30] MEDS: POLYETHYLENE GLYCOL (HEALTHYLAX) 3350 17 GM PACKET PO SCH ×2 (09:54→21:58)
[2022-03-30] MEDS ORDERED: POTASSIUM CHLORIDE TABS 20 MEQ TABLET.ER (FP) PO ONE (14:15)
[2022-03-30] MEDS ORDERED: SODIUM CHLORIDE 1,000 ML IV STA (21:17)
[2022-03-31] MEDS: MAGNESIUM HYDROX 2400MG/30ML ORAL SUSPENSION 30 ML CUP PO SCH ×2 (00:32→12:58)
[2022-03-31] MEDS: PIPERACILLIN/TAZOB 4.5 GM 4.5 GM in DEXTROSE 5%-WATER 100 ML IVPB SCH ×3 (01:01→18:07)
[2022-03-31] MEDS: GABAPENTIN 400 MG CAPSULE PO SCH ×3 (05:56→21:00)
[2022-03-31] MEDS: BACLOFEN 10 MG TABLET (FP) PO SCH ×3 (05:56→21:01)
[2022-03-31] MEDS: TAMSULOSIN HCL 0.4 MG CAP PO SCH (08:03)
[2022-03-31] MEDS: AMINO ACIDS/PROTEIN HYDROLYS 30 ML LIQUID.PKT PO SCH ×2 (08:04→18:07)
[2022-03-31] MEDS: ALBUTEROL SO4 2.5/IPRATROPIUM 0.5 INH SOL 3 ML VIAL.NEB. NEB SCH ×2 (08:19→11:31)
[2022-03-31 08:26] LABS: BASO % 1.1 % (0-2.0); EOS % 6.2 % (0-4.5); HEMATOCRIT 26.8 % (35.4-49); HEMOGLOBIN 9.1 GM/dL (11.7-16.9); LYMPH % 13.7 % (8-40); MCH 31.2 pg (25.7-33.7); MCHC 33.9 g/dl (32.0-35.9); MEAN CELL VOLUME 92.2 fl (80-96); MEAN PLT VOLUME 7.1 fl (7.5-11.1); MONO % 6.6 % (3.8-10.2); NEUT % 72.4 % (42.8-82.8); PLATELET COUNT 491 10^3/uL (134-434); RBC 2.91 M/mm3 (4.00-5.60); WHITE BLOOD COUNT 8.7 K/mm3 (4.0-10.0)
[2022-03-31 09:10] LABS: ALBUMIN 2.3 g/dl (3.4-5.0); BLOOD UREA NITROGEN 7.7 mg/dL (7-18); CALCIUM 8.8 mg/dL (8.5-10.1)
[2022-03-31 09:14] LABS: CREATININE 0.5 mg/dL (0.55-1.3); TOT PROT 6.6 g/dl (6.4-8.2)
[2022-03-31 09:16] LABS: BILIRUBIN,TOTAL 0.2 mg/dL (0.2-1)
[2022-03-31] MEDS: MIDODRINE HCL 5 MG TABLET PO SCH ×3 (10:02→18:07)
[2022-03-31] MEDS: POLYETHYLENE GLYCOL (HEALTHYLAX) 3350 17 GM PACKET PO SCH ×2 (10:03→21:01)
[2022-03-31] MEDS: COLLAGENASE CLOSTRIDIUM HIST. 30 GRAMS TUBE TP SCH (10:03)
[2022-03-31] MEDS: MULTIVITAMINS THER W-MINERALS COMBO TABLET (FP) PO SCH (10:22)
[2022-04-01 00:15] VITALS: BP 107/68; PULSE 81; RESP 20; TEMP 98.4
== END 2022-04-01 00:30 | disposition home or self-care (01) | DRG 720 ==
LOC: JER 11:10 → JERBED 14:15 → J4S 03-22 20:23
PROVIDERS: ADMIT Internal Medicine
PROC: 0T9B70Z Drainage of Bladder with Drainage Device, Via Natural or Artificial Opening (ICD-10-PCS; principal; 2022-03-22)
DX: A41.9 Sepsis, unspecified organism (principal); G82.20 Paraplegia, unspecified; Z86.16 Personal history of COVID-19; N39.0 Urinary tract infection, site not specified; L89.154 Pressure ulcer of sacral region, stage 4; K59.00 Constipation, unspecified; B96.5 Pseudomonas (aeruginosa) (mallei) (pseudomallei) as the cause of diseases classified elsewhere; R33.8 Other retention of urine; K59.09 Other constipation; Z99.3 Dependence on wheelchair; E87.6 Hypokalemia; N40.0 Benign prostatic hyperplasia without lower urinary tract symptoms; K81.9 Cholecystitis, unspecified
CPT/HCPCS: 0241U-QW; 36415; 71045-TC-FY; 74018-TC-FY; 74176-TC; 76705-TC; 80048; 80053; 80076; 81003; 82550; 82553; 82803; 83605; 83690; 83735; 84100; 84484; 85025; 85610; 85730; 87040; 87045; 87046; 87086; 87186; 93005; 93010; 94640; 97110-GP; 99291; C9803-CS; J0475; U0003; U0005

== ENCOUNTER 2022-08-14 05:12 | Inpatient (IN) | payer OTHER ==
[2022-08-14] MEDS ORDERED: BUPIVACAINE HCL/PF 0.25% (2.5MG/ML) 10 ML VIAL ONE (07:19)
[2022-08-14] MEDS ORDERED: ROCURONIUM BROMIDE 50 MG/5 ML SYRINGE ONE (07:45)
[2022-08-14] MEDS ORDERED: SUCCINYLCHOLINE CHLORIDE 200 MG/10 ML SYRINGE ONE (07:45)
[2022-08-14] MEDS ORDERED: MIDAZOLAM HCL 2 MG/2 ML SINGLE DOSE VIAL ONE ×2 (07:45→08:15)
[2022-08-14] MEDS ORDERED: HEPARIN NA (PORCINE) 5,000 UNITS/ML 1ML VIAL SQ ONE (07:58)
[2022-08-14] MEDS ORDERED: GLYCOPYRROLATE 0.2 MG/1 ML VIAL ONE ×2 (08:01→09:33)
[2022-08-14] MEDS ORDERED: HEPARIN NA (PORCINE) 5,000 UNITS/ML 1ML VIAL ONE (08:06)
[2022-08-14] MEDS ORDERED: ceFAZolin SODIUM 1 GM VIAL IVPB ONE (08:28)
[2022-08-14] MEDS ORDERED: BUPIVACAINE HCL/PF 0.25% (2.5MG/ML) 10 ML VIAL IJ ONE ×3 (09:28→09:39)
[2022-08-14] MEDS ORDERED: NEOSTIGMINE METHYLSULFATE 0.5 MG/1 ML - 10 ML MDV ONE (09:33)
[2022-08-14] MEDS ORDERED: ONDANSETRON 4 MG/2 ML VIAL IVPUSH PRN (09:50)
[2022-08-14] MEDS ORDERED: oxyCODONE HCL 5 MG TABLET PO PRN ×2 (09:50→10:39)
[2022-08-14] MEDS ORDERED: LORazepam 0.5 MG TABLET PO PRN (10:39)
[2022-08-14] MEDS: ALBUTEROL SO4 2.5/IPRATROPIUM 0.5 INH SOL 3 ML VIAL.NEB. NEB SCH ×3 (12:00→21:50)
[2022-08-14] MEDS: GABAPENTIN 400 MG CAPSULE PO SCH ×2 (14:00→22:42)
[2022-08-14] MEDS: BACLOFEN 10 MG TABLET (FP) PO SCH ×2 (14:00→22:42)
[2022-08-14] MEDS: MIDODRINE HCL 5 MG TABLET PO SCH ×2 (14:00→18:00)
[2022-08-14] MEDS: LACTATED RINGERS SOLUTION 1,000 ML IV SCH (18:30)
[2022-08-14] MEDS: AMOX TR/POT CLAV 875MG/125MG TABLETS (FP) PO SCH (18:45)
[2022-08-14 20:55] VITALS: BMI 23.0
[2022-08-14] MEDS: BACITRACIN/POLYMYXIN B SULFATE 15 GM TUBE TP SCH (22:43)
[2022-08-15] MEDS: GABAPENTIN 400 MG CAPSULE PO SCH ×3 (06:20→22:56)
[2022-08-15] MEDS: HEPARIN NA (PORCINE) 5,000 UNITS/ML 1ML VIAL SQ SCH ×3 (06:21→22:56)
[2022-08-15] MEDS: BACLOFEN 10 MG TABLET (FP) PO SCH ×3 (06:21→22:56)
[2022-08-15] MEDS: LACTATED RINGERS SOLUTION 1,000 ML IV SCH (11:13)
[2022-08-15] MEDS: FAMOTIDINE 40 MG TABLET PO SCH (11:13)
[2022-08-15] MEDS: AMOX TR/POT CLAV 875MG/125MG TABLETS (FP) PO SCH ×2 (11:13→18:32)
[2022-08-15] MEDS: MIDODRINE HCL 5 MG TABLET PO SCH ×3 (11:13→18:03)
[2022-08-15] MEDS: BACITRACIN/POLYMYXIN B SULFATE 15 GM TUBE TP SCH (11:18)
[2022-08-15 13:02] LABS: HEMATOCRIT 39.3 % (35.4-49); HEMOGLOBIN 13.6 GM/dL (11.7-16.9); MCH 32.1 pg (25.7-33.7); MCHC 34.6 g/dl (32.0-35.9); MEAN CELL VOLUME 92.8 fl (80-96); MEAN PLT VOLUME 7.8 fl (7.5-11.1); PLATELET COUNT 243 10^3/uL (134-434); RBC 4.23 M/mm3 (4.00-5.60); RDW 13.4 % (11.9-15.9); WHITE BLOOD COUNT 10.1 K/mm3 (4.0-10.0)
[2022-08-15 14:02] LABS: ALBUMIN 3.2 g/dl (3.4-5.0); BILIRUBIN,TOTAL 0.8 mg/dL (0.2-1); BLOOD UREA NITROGEN 12.5 mg/dL (7-18); CALCIUM 9.1 mg/dL (8.5-10.1); CREATININE 0.6 mg/dL (0.55-1.3); TOT PROT 7.3 g/dl (6.4-8.2)
[2022-08-15] MEDS: ALBUTEROL SO4 2.5/IPRATROPIUM 0.5 INH SOL 3 ML VIAL.NEB. NEB SCH ×3 (14:17→21:04)
[2022-08-15] MEDS: COLLAGENASE CLOSTRIDIUM HIST. 30 GRAMS TUBE TP SCH (18:34)
[2022-08-15] MEDS: DOCUSATE SODIUM 100 MG CAPSULE (FP) PO SCH (22:56)
[2022-08-16 02:50] VITALS: RESP 18
[2022-08-16] MEDS: DOCUSATE SODIUM 100 MG CAPSULE (FP) PO SCH ×3 (06:30→14:16)
[2022-08-16] MEDS: HEPARIN NA (PORCINE) 5,000 UNITS/ML 1ML VIAL SQ SCH ×2 (06:30→14:11)
[2022-08-16] MEDS: GABAPENTIN 400 MG CAPSULE PO SCH ×2 (06:30→14:09)
[2022-08-16] MEDS: BACLOFEN 10 MG TABLET (FP) PO SCH ×2 (06:30→14:10)
[2022-08-16] MEDS: ALBUTEROL SO4 2.5/IPRATROPIUM 0.5 INH SOL 3 ML VIAL.NEB. NEB SCH ×4 (06:31→15:35)
[2022-08-16] MEDS ORDERED: AMINO ACIDS/PROTEIN HYDROLYS 30 ML LIQUID.PKT PO SCH (08:00)
[2022-08-16] MEDS ORDERED: MULTIVITAMINS (DAILY MVI) TABLET (FP) PO SCH (10:00)
[2022-08-16] MEDS ORDERED: ZINC SULFATE 220 MG CAPSULE (FP) PO SCH (10:00)
[2022-08-16] MEDS ORDERED: ASCORBIC ACID 250 MG TABLET (FP) PO SCH (10:00)
[2022-08-16] MEDS ORDERED: ERGOCALCIFEROL (VIT D2) 50,000 UNIT (1.25 MG) CAPSULE PO SCH (10:00)
[2022-08-16] MEDS: MIDODRINE HCL 5 MG TABLET PO SCH ×2 (10:27→14:10)
[2022-08-16] MEDS: AMOX TR/POT CLAV 875MG/125MG TABLETS (FP) PO SCH (10:27)
[2022-08-16] MEDS: FAMOTIDINE 40 MG TABLET PO SCH (10:27)
[2022-08-16] MEDS: COLLAGENASE CLOSTRIDIUM HIST. 30 GRAMS TUBE TP SCH (10:28)
[2022-08-16] MEDS: BACITRACIN/POLYMYXIN B SULFATE 15 GM TUBE TP SCH (10:29)
[2022-08-16] MEDS ORDERED: POLYETHYLENE GLYCOL (HEALTHYLAX) 3350 17 GM PACKET PO ONE (15:00)
[2022-08-16 15:59] VITALS: BP 119/80; PULSE 71; TEMP 99
== END 2022-08-16 17:44 | disposition home or self-care (01) | DRG 263 ==
LOC: JASU-SURG 05:12 → J2C 10:28 → J8W 20:26
PROVIDERS: ADMIT Internal Medicine; ATTEND Nurse Practitioner Family
PROC: 0FT44ZZ Resection of Gallbladder, Percutaneous Endoscopic Approach (ICD-10-PCS; principal; 2022-08-14 08:00)
DX: K81.0 Acute cholecystitis (principal); G82.20 Paraplegia, unspecified; Z74.01 Bed confinement status; L89.154 Pressure ulcer of sacral region, stage 4; L89.320 Pressure ulcer of left buttock, unstageable
CPT/HCPCS: 36415; 80053; 85027; 88304-TC; 94640; 94760; C9803-CS; J0475; J1644; U0003; U0005

== ENCOUNTER 2022-09-29 03:31 | Inpatient (IN) | payer OTHER ==
[2022-09-29] MEDS ORDERED: ACETAMINOPHEN 1000 MG/100 ML BAG IVPB ONE (04:17)
[2022-09-29 04:34] LABS: EPI CELLS 7 /uL (0-25.1); HYALINE CASTS 1 /uL (0-3.1); PH,URINE >= 9.0 (5.0-8.0); URINE APPEARANCE CLOUDY; URINE BACTERIA >9,000 /uL (0-1359); URINE BILIRUBIN NEGATIVE (NEGATIVE); URINE COLOR DK YELLOW; URINE GLUCOSE (UA) NEGATIVE (NEGATIVE); URINE KETONE NEGATIVE (NEGATIVE); URINE LEUK ESTERASE 3+ (NEGATIVE); URINE NITRITE POSITIVE (NEGATIVE); URINE PROTEIN 1+ (NEGATIVE); URINE RBC 41 /uL (0-23.9); URINE WBC 262 /uL (0-25.8)
[2022-09-29] MEDS ORDERED: ACETAMINOPHEN INJECTION 100 ML IVPB ONE (04:42)
[2022-09-29] MEDS ORDERED: MEROPENEM 1 GM in DEXTROSE 5%-WATER 100 ML IVPB ONE (04:43)
[2022-09-29] MEDS ORDERED: MEROPENEM 1 GM VIAL (RESTRICTED TO ID) IVPB ONE ×2 (04:45→13:42)
[2022-09-29 05:46] LABS: INR 1.24 (0.83-1.09); PROTHROMBIN TIME (PATIENT) 14.3 SEC (9.7-13.0)
[2022-09-29 05:49] LABS: ACTIVATED PTT 37.2 SECONDS (25.2-36.5)
[2022-09-29 05:54] LABS: URINE CRYSTALS NONE SEEN /hpf
[2022-09-29 05:55] LABS: BASO % 0.3 % (0-2.0); EOS % 0.1 % (0-4.5); HEMATOCRIT 38.7 % (35.4-49); HEMOGLOBIN 13.4 GM/dL (11.7-16.9); LYMPH % 7.3 % (8-40); MCH 32.3 pg (25.7-33.7); MCHC 34.7 g/dl (32.0-35.9); MEAN CELL VOLUME 93.1 fl (80-96); MEAN PLT VOLUME 9.5 fl (7.5-11.1); MONO % 9.2 % (3.8-10.2); NEUT % 83.1 % (42.8-82.8); PLATELET COUNT 243 10^3/uL (134-434); RBC 4.16 M/mm3 (4.00-5.60); RDW 13.5 % (11.9-15.9); WHITE BLOOD COUNT 12.7 K/mm3 (4.0-10.0)
[2022-09-29 05:57] LABS: CHLORIDE 102 mmol/L (98-107); POTASSIUM 3.9 mmol/L (3.5-5.1); SODIUM 136 mmol/L (136-145)
[2022-09-29 05:59] LABS: ALBUMIN 3.2 g/dl (3.4-5.0); ANION GAP 6 MMOL/L (8-16); CALCIUM 9.1 mg/dL (8.5-10.1); CO2 29 mmol/L (21-32); GLUCOSE,RANDOM 126 mg/dL (74-106)
[2022-09-29 06:02] LABS: SGOT/AST 26 U/L (15-37); SGPT/ALT 23 U/L (13-61)
[2022-09-29 06:03] LABS: CREATININE 0.8 mg/dL (0.55-1.3)
[2022-09-29 06:04] LABS: BILIRUBIN,TOTAL 1.2 mg/dL (0.2-1); TOT PROT 7.2 g/dl (6.4-8.2)
[2022-09-29 06:05] LABS: ALK PHOS 101 U/L (45-117)
[2022-09-29] MEDS ORDERED: SODIUM CHLORIDE 0.9% 500 ML INFUS.BAG IV ONE (07:58)
[2022-09-29] MEDS ORDERED: MIDODRINE HCL 5 MG TABLET PO ONE (08:00)
[2022-09-29] MEDS ORDERED: BACLOFEN 10 MG TABLET (FP) PO ONE (08:10)
[2022-09-29] MEDS ORDERED: GABAPENTIN 400 MG CAPSULE PO ONE (08:11)
[2022-09-29] MEDS ORDERED: LACTATED RINGERS SOLUTION 1000 ML INFUS.BAG IV ONE (08:26)
[2022-09-29] MEDS ORDERED: ONDANSETRON 4 MG/2 ML VIAL IVPUSH ONE (09:17)
[2022-09-29] MEDS ORDERED: BACLOFEN 10 MG TABLET (FP) ONE (09:19)
[2022-09-29] MEDS ORDERED: GABAPENTIN 400 MG CAPSULE ONE (09:20)
[2022-09-29] MEDS ORDERED: ONDANSETRON *ODT* 4 MG TABLET ONE (09:22)
[2022-09-29] MEDS ORDERED: MEROPENEM 1 GM in DEXTROSE 5%-WATER 100 ML IVPB SCH ×2 (10:00→12:00)
[2022-09-29 10:42] LABS: BASO % 0.7 % (0-2.0); EOS % 0.3 % (0-4.5); HEMATOCRIT 38.1 % (35.4-49); HEMOGLOBIN 12.7 GM/dL (11.7-16.9); LYMPH % 6.9 % (8-40); MCH 31.7 pg (25.7-33.7); MCHC 33.3 g/dl (32.0-35.9); MEAN PLT VOLUME 8.1 fl (7.5-11.1); MONO % 11.3 % (3.8-10.2); NEUT % 80.8 % (42.8-82.8); PLATELET COUNT 212 10^3/uL (134-434); RBC 4.01 M/mm3 (4.00-5.60); RDW 13.4 % (11.9-15.9); WHITE BLOOD COUNT 11.6 K/mm3 (4.0-10.0)
[2022-09-29 10:58] LABS: POTASSIUM 3.4 mmol/L (3.5-5.1)
[2022-09-29 11:00] LABS: CALCIUM 8.9 mg/dL (8.5-10.1)
[2022-09-29 11:04] LABS: CREATININE 0.7 mg/dL (0.55-1.3); PHOSPHOROUS 2.5 mg/dL (2.5-4.9)
[2022-09-29 11:05] LABS: BILIRUBIN,TOTAL 1.6 mg/dL (0.2-1); TOT PROT 6.8 g/dl (6.4-8.2)
[2022-09-29] MEDS ORDERED: ASPIRIN 81 MG CHEWABLE TABLETS ONE (13:42)
[2022-09-29] MEDS ORDERED: ENOXAPARIN NA (PORCINE) 40 MG/0.4 ML DISP.SYRIN SQ ONE (13:42)
[2022-09-29] MEDS ORDERED: GABAPENTIN 400 MG CAPSULE PO SCH (14:00)
[2022-09-29] MEDS ORDERED: PATIENT'S OWN MEDICATION (NON-FORMULARY) (Midodrine Hcl [Midodrine Hcl] 10 MG Tablet) PO SCH (14:00)
[2022-09-29] MEDS: ENOXAPARIN NA (PORCINE) 40 MG/0.4 ML DISP.SYRIN SQ SCH (16:00)
[2022-09-29 17:16] VITALS: BMI 22.4
[2022-09-29] MEDS: MIDODRINE HCL 5 MG TABLET PO SCH ×2 (17:32→21:43)
[2022-09-29] MEDS: GABAPENTIN 400 MG CAPSULE PO SCH ×2 (17:33→21:43)
[2022-09-29] MEDS: PIPERACILLIN/TAZOB 4.5 GM 4.5 GM in DEXTROSE 5%-WATER 100 ML IVPB SCH (17:33)
[2022-09-29] MEDS: ASPIRIN 81 MG CHEWABLE TABLETS PO SCH (18:00)
[2022-09-29] MEDS: ONDANSETRON 4 MG/2 ML VIAL IVPUSH PRN (18:20)
[2022-09-29] MEDS: ACETAMINOPHEN 1000 MG/100 ML BAG IVPB PRN (20:32)
[2022-09-29] MEDS ORDERED: guaiFENesin/D-METHORPHAN HB 10 ML UNIT-DOSE CUPS PO PRN (20:34)
[2022-09-30] MEDS: PIPERACILLIN/TAZOB 4.5 GM 4.5 GM in DEXTROSE 5%-WATER 100 ML IVPB SCH ×3 (02:08→18:22)
[2022-09-30] MEDS: ONDANSETRON 4 MG/2 ML VIAL IVPUSH PRN ×2 (02:44→10:30)
[2022-09-30] MEDS: ACETAMINOPHEN 1000 MG/100 ML BAG IVPB PRN (02:52)
[2022-09-30] MEDS: MIDODRINE HCL 5 MG TABLET PO SCH ×3 (06:34→22:09)
[2022-09-30] MEDS: GABAPENTIN 400 MG CAPSULE PO SCH ×3 (06:34→22:09)
[2022-09-30 07:32] LABS: BASO % 0.4 % (0-2.0); EOS % 0.1 % (0-4.5); HEMOGLOBIN 12.6 GM/dL (11.7-16.9); LYMPH % 8.1 % (8-40); MCH 32.8 pg (25.7-33.7); MEAN CELL VOLUME 93.8 fl (80-96); MONO % 10.4 % (3.8-10.2); PLATELET COUNT 208 10^3/uL (134-434); RBC 3.84 M/mm3 (4.00-5.60); RDW 12.9 % (11.9-15.9); WHITE BLOOD COUNT 9.8 K/mm3 (4.0-10.0)
[2022-09-30 07:57] LABS: POTASSIUM 3.2 mmol/L (3.5-5.1)
[2022-09-30 07:59] LABS: ALBUMIN 2.8 g/dl (3.4-5.0); MAGNESIUM 1.9 mg/dL (1.8-2.4)
[2022-09-30 08:02] LABS: CREATININE 0.8 mg/dL (0.55-1.3); PHOSPHOROUS 2.3 mg/dL (2.5-4.9)
[2022-09-30 08:04] LABS: BILIRUBIN,TOTAL 2.2 mg/dL (0.2-1); TOT PROT 6.8 g/dl (6.4-8.2)
[2022-09-30] MEDS ORDERED: NAPH,MB-DB/K PH,MBDB POWDER PACKET PO ONE (08:46)
[2022-09-30] MEDS ORDERED: POTASSIUM CHLORIDE ORAL LIQUID 20 MEQ/15 ML PO ONE (08:49)
[2022-09-30] MEDS: ENOXAPARIN NA (PORCINE) 40 MG/0.4 ML DISP.SYRIN SQ SCH (09:58)
[2022-09-30] MEDS: ASPIRIN 81 MG CHEWABLE TABLETS PO SCH (09:59)
[2022-09-30] MEDS: BACLOFEN 10 MG TABLET (FP) PO SCH ×2 (17:12→22:10)
[2022-09-30] MEDS ORDERED: SODIUM CHLORIDE 1,000 ML IV SCH (18:15)
[2022-10-01] MEDS: PIPERACILLIN/TAZOB 4.5 GM 4.5 GM in DEXTROSE 5%-WATER 100 ML IVPB SCH ×2 (03:32→11:00)
[2022-10-01] MEDS: GABAPENTIN 400 MG CAPSULE PO SCH ×3 (05:56→22:00)
[2022-10-01] MEDS: BACLOFEN 10 MG TABLET (FP) PO SCH ×3 (05:56→22:00)
[2022-10-01] MEDS: MIDODRINE HCL 5 MG TABLET PO SCH ×3 (05:57→21:59)
[2022-10-01 08:16] LABS: HEMATOCRIT 37.5 % (35.4-49); HEMOGLOBIN 12.9 GM/dL (11.7-16.9); MCH 32.2 pg (25.7-33.7); MCHC 34.3 g/dl (32.0-35.9); MEAN CELL VOLUME 93.8 fl (80-96); PLATELET COUNT 230 10^3/uL (134-434); RDW 13.4 % (11.9-15.9); WHITE BLOOD COUNT 8.1 K/mm3 (4.0-10.0)
[2022-10-01 08:36] LABS: POTASSIUM 3.7 mmol/L (3.5-5.1)
[2022-10-01 08:46] LABS: ALBUMIN 2.9 g/dl (3.4-5.0); BLOOD UREA NITROGEN 10.8 mg/dL (7-18); MAGNESIUM 1.8 mg/dL (1.8-2.4)
[2022-10-01 08:49] LABS: CREATININE 0.6 mg/dL (0.55-1.3); PHOSPHOROUS 2.4 mg/dL (2.5-4.9)
[2022-10-01 08:50] LABS: TOT PROT 7.1 g/dl (6.4-8.2)
[2022-10-01 09:04] LABS: BILIRUBIN,TOTAL 1.7 mg/dL (0.2-1); CALCIUM 9.1 mg/dL (8.5-10.1)
[2022-10-01] MEDS: ENOXAPARIN NA (PORCINE) 40 MG/0.4 ML DISP.SYRIN SQ SCH (11:00)
[2022-10-01] MEDS: ASPIRIN 81 MG CHEWABLE TABLETS PO SCH (11:00)
[2022-10-01] MEDS ORDERED: SODIUM CHLORIDE 1,000 ML IV STA (14:57)
[2022-10-01] MEDS ORDERED: LINEZOLID 600 MG PREMIX BAG 600 MG/300 ML BAG IVPB SCH (15:15)
[2022-10-01] MEDS: MEROPENEM 1 GM in DEXTROSE 5%-WATER 100 ML IVPB SCH (15:37)
[2022-10-01] MEDS ORDERED: MIDODRINE HCL 5 MG TABLET PO SCH (15:45)
[2022-10-01] MEDS: LINEZOLID 600 MG PREMIX BAG 600 MG/300 ML BAG IVPB SCH (16:45)
[2022-10-01] MEDS ORDERED: VANCOMYCIN 1 GM in D5W (PRE-DOCKED) 1,000 MG/250 ML (RESTRICTED TO ID ONLY IVPB SCH (22:00)
[2022-10-02] MEDS: MEROPENEM 1 GM in DEXTROSE 5%-WATER 100 ML IVPB SCH ×3 (00:21→19:01)
[2022-10-02] MEDS: LINEZOLID 600 MG PREMIX BAG 600 MG/300 ML BAG IVPB SCH (04:34)
[2022-10-02] MEDS: MIDODRINE HCL 5 MG TABLET PO SCH ×4 (04:39→21:37)
[2022-10-02] MEDS: BACLOFEN 10 MG TABLET (FP) PO SCH ×3 (05:49→21:46)
[2022-10-02] MEDS: GABAPENTIN 400 MG CAPSULE PO SCH ×3 (05:49→21:36)
[2022-10-02 08:39] LABS: BASO % 0.5 % (0-2.0); HEMOGLOBIN 12.2 GM/dL (11.7-16.9); LYMPH % 16.7 % (8-40); MCH 31.7 pg (25.7-33.7); MCHC 33.9 g/dl (32.0-35.9); MEAN CELL VOLUME 93.6 fl (80-96); MEAN PLT VOLUME 8.3 fl (7.5-11.1); NEUT % 66.8 % (42.8-82.8); PLATELET COUNT 229 10^3/uL (134-434); RBC 3.85 M/mm3 (4.00-5.60); RDW 13.3 % (11.9-15.9); WHITE BLOOD COUNT 5.9 K/mm3 (4.0-10.0)
[2022-10-02 08:42] LABS: INR 1.08 (0.83-1.09); PROTHROMBIN TIME (PATIENT) 12.5 SEC (9.7-13.0)
[2022-10-02] MEDS ORDERED: NAPH,MB-DB/K PH,MBDB POWDER PACKET PO ONE (08:45)
[2022-10-02 08:47] LABS: POTASSIUM 3.3 mmol/L (3.5-5.1)
[2022-10-02 08:53] LABS: CALCIUM 8.5 mg/dL (8.5-10.1)
[2022-10-02 08:54] LABS: ALBUMIN 2.6 g/dl (3.4-5.0); BLOOD UREA NITROGEN 7.6 mg/dL (7-18)
[2022-10-02 08:55] LABS: PHOSPHOROUS 2.9 mg/dL (2.5-4.9)
[2022-10-02 08:56] LABS: CREATININE 0.6 mg/dL (0.55-1.3); TOT PROT 6.5 g/dl (6.4-8.2)
[2022-10-02] MEDS: ASPIRIN 81 MG CHEWABLE TABLETS PO SCH (10:21)
[2022-10-02] MEDS: ENOXAPARIN NA (PORCINE) 40 MG/0.4 ML DISP.SYRIN SQ SCH (10:21)
[2022-10-02] MEDS: PIPERACILLIN/TAZOB 4.5 GM 4.5 GM in DEXTROSE 5%-WATER 100 ML IVPB SCH (15:58)
[2022-10-03] MEDS: PIPERACILLIN/TAZOB 4.5 GM 4.5 GM in DEXTROSE 5%-WATER 100 ML IVPB SCH ×2 (01:27→10:09)
[2022-10-03] MEDS: MIDODRINE HCL 5 MG TABLET PO SCH ×2 (03:20→10:10)
[2022-10-03] MEDS: GABAPENTIN 400 MG CAPSULE PO SCH ×2 (05:29→14:17)
[2022-10-03] MEDS: BACLOFEN 10 MG TABLET (FP) PO SCH ×2 (05:29→14:17)
[2022-10-03] MEDS ORDERED: POTASSIUM CHLORIDE TABS 20 MEQ TABLET.ER (FP) PO ONE (07:07)
[2022-10-03 07:46] LABS: HEMATOCRIT 36.4 % (35.4-49); HEMOGLOBIN 12.9 GM/dL (11.7-16.9); MCHC 35.5 g/dl (32.0-35.9); MEAN CELL VOLUME 93.1 fl (80-96); MEAN PLT VOLUME 8.9 fl (7.5-11.1); PLATELET COUNT 265 10^3/uL (134-434); RBC 3.91 M/mm3 (4.00-5.60); RDW 12.9 % (11.9-15.9)
[2022-10-03 08:11] LABS: POTASSIUM 3.6 mmol/L (3.5-5.1)
[2022-10-03 08:19] LABS: CALCIUM 9.2 mg/dL (8.5-10.1)
[2022-10-03 08:20] LABS: BLOOD UREA NITROGEN 7.2 mg/dL (7-18); MAGNESIUM 1.9 mg/dL (1.8-2.4)
[2022-10-03 08:23] LABS: CREATININE 0.7 mg/dL (0.55-1.3); PHOSPHOROUS 3.9 mg/dL (2.5-4.9)
[2022-10-03 08:24] LABS: TOT PROT 7.1 g/dl (6.4-8.2)
[2022-10-03] MEDS: ASPIRIN 81 MG CHEWABLE TABLETS PO SCH (10:09)
[2022-10-03] MEDS: ENOXAPARIN NA (PORCINE) 40 MG/0.4 ML DISP.SYRIN SQ SCH (10:10)
[2022-10-03 14:42] LABS: N-TERMINAL BNP 1087.2 pg/ml (5-125)
[2022-10-03 15:03] VITALS: BP 125/75; PULSE 48; RESP 22; TEMP 98.2
[2022-10-03] MEDS ORDERED: PIPERACILLIN/TAZOB 4.5 GM 4.5 GM in DEXTROSE 5%-WATER 100 ML IVPB SCH (18:00)
== END 2022-10-03 18:11 | disposition home or self-care (01) | DRG 720 ==
LOC: JER 03:31 → JERBED 08:08 → J4W 14:19
PROVIDERS: ADMIT Internal Medicine; ATTEND Internal Medicine
DX: A41.52 Sepsis due to Pseudomonas (principal); G82.20 Paraplegia, unspecified; I24.8 Other forms of acute ischemic heart disease; D72.829 Elevated white blood cell count, unspecified; E87.6 Hypokalemia; I95.1 Orthostatic hypotension; N12 Tubulo-interstitial nephritis, not specified as acute or chronic; R11.2 Nausea with vomiting, unspecified; K59.00 Constipation, unspecified; R00.0 Tachycardia, unspecified; I95.9 Hypotension, unspecified; Z74.01 Bed confinement status
CPT/HCPCS: 0241U-QW; 36415; 71045-TC-FY; 74018-TC-FY; 76775-TC; 76856-TC; 80053; 80061; 81003; 82550; 82553; 83036; 83605; 83735; 83880; 84100; 84439; 84443; 84484; 85025; 85027; 85610; 85730; 87040; 87077; 87086; 87186; 93005; 93010; 93306-TC; 99285-25; E0186; J0475

== ENCOUNTER 2023-01-09 18:21 | Inpatient (IN) | payer OTHER ==
[2023-01-09] MEDS ORDERED: ACETAMINOPHEN 1000 MG/100 ML BAG IVPB ONE (19:35)
[2023-01-09] MEDS ORDERED: SODIUM CHLORIDE 0.9% 500 ML INFUS.BAG IV ONE ×2 (19:35→21:53)
[2023-01-09] MEDS ORDERED: PIPERACILLIN/TAZOB 4.5 GM 4.5 GM in DEXTROSE 5%-WATER 100 ML IVPB ONE (19:36)
[2023-01-09] MEDS ORDERED: PIPERACILLIN/TAZOB 4.5 GM 4.5 GM/100 ML BAG IVPB ONE (19:57)
[2023-01-09] MEDS ORDERED: ACETAMINOPHEN INJECTION 100 ML IVPB ONE (19:57)
[2023-01-09 20:55] LABS: BASO % 0.4 % (0-2.0); EOS % 0.8 % (0-4.5); HEMATOCRIT 42.5 % (35.4-49); HEMOGLOBIN 14.7 GM/dL (11.7-16.9); LYMPH % 10.9 % (8-40); MCH 32.2 pg (25.7-33.7); MCHC 34.5 g/dl (32.0-35.9); MEAN CELL VOLUME 93.2 fl (80-96); MEAN PLT VOLUME 8.4 fl (7.5-11.1); MONO % 7.9 % (3.8-10.2); PLATELET COUNT 291 10^3/uL (134-434); RBC 4.56 M/mm3 (4.00-5.60); RDW 13.5 % (11.9-15.9); WHITE BLOOD COUNT 10.7 K/mm3 (4.0-10.0)
[2023-01-09 20:58] LABS: INR 1.03 (0.83-1.09)
[2023-01-09 21:17] LABS: POTASSIUM 3.7 mmol/L (3.5-5.1)
[2023-01-09 21:19] LABS: BLOOD UREA NITROGEN 12.5 mg/dL (7-18)
[2023-01-09 21:20] LABS: ALBUMIN 3.6 g/dl (3.4-5.0)
[2023-01-09 21:22] LABS: CREATININE 0.8 mg/dL (0.55-1.3)
[2023-01-09 21:24] LABS: BILIRUBIN,TOTAL 0.9 mg/dL (0.2-1); TOT PROT 7.6 g/dl (6.4-8.2)
[2023-01-09 21:44] LABS: EPI CELLS 7 /uL (0-25.1); HYALINE CASTS 12 /uL (0-3.1); URINE APPEARANCE TURBID; URINE BACTERIA >9,000 /uL (0-1359); URINE BILIRUBIN NEGATIVE (NEGATIVE); URINE COLOR DK YELLOW; URINE GLUCOSE (UA) NEGATIVE (NEGATIVE); URINE KETONE NEGATIVE (NEGATIVE); URINE LEUK ESTERASE 3+ (NEGATIVE); URINE NITRITE POSITIVE (NEGATIVE); URINE PROTEIN 2+ (NEGATIVE); URINE RBC 241 /uL (0-23.9); URINE WBC 916 /uL (0-25.8)
[2023-01-09] MEDS ORDERED: MIDODRINE HCL 5 MG TABLET ONE (22:38)
[2023-01-09] MEDS ORDERED: MIDODRINE HCL 5 MG TABLET PO ONE (23:20)
[2023-01-10] MEDS ORDERED: SODIUM CHLORIDE 1,000 ML IV SCH (01:30)
[2023-01-10] MEDS ORDERED: GABAPENTIN 400 MG CAPSULE ONE (05:41)
[2023-01-10] MEDS ORDERED: BACLOFEN 10 MG TABLET (FP) ONE (05:41)
[2023-01-10] MEDS: BACLOFEN 10 MG TABLET (FP) PO SCH ×3 (05:50→18:39)
[2023-01-10] MEDS: GABAPENTIN 400 MG CAPSULE PO SCH ×3 (05:50→18:40)
[2023-01-10] MEDS ORDERED: MEROPENEM 1 GM VIAL (RESTRICTED TO ID) IVPB ONE ×2 (08:05→18:25)
[2023-01-10] MEDS ORDERED: HEPARIN INFUSION - 0 UNITS/0 ML INFUS.BAG IVPB ONE (08:39)
[2023-01-10] MEDS: ENOXAPARIN NA (PORCINE) 40 MG/0.4 ML DISP.SYRIN SQ SCH (09:02)
[2023-01-10] MEDS: MIDODRINE HCL 5 MG TABLET PO SCH ×3 (09:02→18:40)
[2023-01-10 09:03] LABS: BASO % 0.2 % (0-2.0); EOS % 1.3 % (0-4.5); HEMOGLOBIN 13.2 GM/dL (11.7-16.9); LYMPH % 8.1 % (8-40); MCH 32.6 pg (25.7-33.7); MCHC 34.9 g/dl (32.0-35.9); MEAN CELL VOLUME 93.5 fl (80-96); MEAN PLT VOLUME 8.1 fl (7.5-11.1); MONO % 6.7 % (3.8-10.2); NEUT % 83.7 % (42.8-82.8); PLATELET COUNT 214 10^3/uL (134-434); RBC 4.07 M/mm3 (4.00-5.60); RDW 13.2 % (11.9-15.9)
[2023-01-10] MEDS ORDERED: MEROPENEM 1 GM in DEXTROSE 5%-WATER 100 ML IVPB SCH (10:00)
[2023-01-10 10:05] LABS: POTASSIUM 3.6 mmol/L (3.5-5.1)
[2023-01-10 10:20] LABS: ALBUMIN 3.1 g/dl (3.4-5.0); BLOOD UREA NITROGEN 8.7 mg/dL (7-18); CALCIUM 8.6 mg/dL (8.5-10.1); MAGNESIUM 1.9 mg/dL (1.8-2.4)
[2023-01-10 10:23] LABS: CREATININE 0.5 mg/dL (0.55-1.3); PHOSPHOROUS 2.7 mg/dL (2.5-4.9)
[2023-01-10 10:25] LABS: TOT PROT 6.4 g/dl (6.4-8.2)
[2023-01-10] MEDS: COLLAGENASE CLOSTRIDIUM HIST. 30 GRAMS TUBE TP SCH (17:09)
[2023-01-10] MEDS: MEROPENEM 1 GM in DEXTROSE 5%-WATER 100 ML IVPB SCH (18:39)
[2023-01-10] MEDS ORDERED: MIDODRINE HCL 5 MG TABLET PO ONE ×2 (22:08→23:20)
[2023-01-11] MEDS: BACLOFEN 10 MG TABLET (FP) PO SCH ×4 (01:36→17:15)
[2023-01-11] MEDS: GABAPENTIN 400 MG CAPSULE PO SCH ×4 (01:36→17:15)
[2023-01-11] MEDS: MEROPENEM 1 GM in DEXTROSE 5%-WATER 100 ML IVPB SCH ×3 (01:48→17:03)
[2023-01-11] MEDS ORDERED: SODIUM CHLORIDE 500 ML IV STA (08:01)
[2023-01-11] MEDS: ENOXAPARIN NA (PORCINE) 40 MG/0.4 ML DISP.SYRIN SQ SCH (09:28)
[2023-01-11] MEDS: MIDODRINE HCL 5 MG TABLET PO SCH ×4 (09:29→21:53)
[2023-01-11 11:58] LABS: BASO % 0.6 % (0-2.0); EOS % 1.4 % (0-4.5); HEMATOCRIT 40.7 % (35.4-49); HEMOGLOBIN 13.6 GM/dL (11.7-16.9); LYMPH % 16.1 % (8-40); MCH 31.6 pg (25.7-33.7); MCHC 33.5 g/dl (32.0-35.9); MEAN CELL VOLUME 94.4 fl (80-96); MONO % 10.4 % (3.8-10.2); NEUT % 71.5 % (42.8-82.8); PLATELET COUNT 232 10^3/uL (134-434); RBC 4.31 M/mm3 (4.00-5.60); RDW 13.1 % (11.9-15.9)
[2023-01-11 12:22] LABS: POTASSIUM 3.6 mmol/L (3.5-5.1)
[2023-01-11 12:26] LABS: CALCIUM 9.1 mg/dL (8.5-10.1)
[2023-01-11 12:28] LABS: ALBUMIN 3.1 g/dl (3.4-5.0); BLOOD UREA NITROGEN 7.4 mg/dL (7-18)
[2023-01-11 12:31] LABS: CREATININE 0.7 mg/dL (0.55-1.3)
[2023-01-11 12:32] LABS: BILIRUBIN,TOTAL 1.4 mg/dL (0.2-1)
[2023-01-11] MEDS ORDERED: SODIUM CHLORIDE 1,000 ML IV SCH (13:15)
[2023-01-11 13:39] VITALS: BMI 23.1
[2023-01-11] MEDS: COLLAGENASE CLOSTRIDIUM HIST. 30 GRAMS TUBE TP SCH (16:59)
[2023-01-11] MEDS: ASCORBIC ACID 250 MG TABLET (FP) PO SCH (21:12)
[2023-01-12] MEDS: GABAPENTIN 400 MG CAPSULE PO SCH ×4 (00:39→17:42)
[2023-01-12] MEDS: BACLOFEN 10 MG TABLET (FP) PO SCH ×4 (00:39→17:42)
[2023-01-12] MEDS: MEROPENEM 1 GM in DEXTROSE 5%-WATER 100 ML IVPB SCH ×3 (03:15→17:56)
[2023-01-12] MEDS: MIDODRINE HCL 5 MG TABLET PO SCH ×4 (06:18→21:48)
[2023-01-12] MEDS: AMINO ACIDS/PROTEIN HYDROLYS 30 ML LIQUID.PKT PO SCH (09:16)
[2023-01-12] MEDS: MULTIVITAMINS (DAILY MVI) TABLET (FP) PO SCH (09:19)
[2023-01-12] MEDS: ENOXAPARIN NA (PORCINE) 40 MG/0.4 ML DISP.SYRIN SQ SCH (09:20)
[2023-01-12] MEDS: ASCORBIC ACID 250 MG TABLET (FP) PO SCH ×2 (09:20→21:48)
[2023-01-12 09:53] LABS: BASO % 0.5 % (0-2.0); EOS % 1.8 % (0-4.5); HEMATOCRIT 40.8 % (35.4-49); HEMOGLOBIN 14.5 GM/dL (11.7-16.9); LYMPH % 16.5 % (8-40); MCHC 35.5 g/dl (32.0-35.9); MEAN PLT VOLUME 7.9 fl (7.5-11.1); MONO % 11.1 % (3.8-10.2); NEUT % 70.1 % (42.8-82.8); PLATELET COUNT 237 10^3/uL (134-434); RBC 4.38 M/mm3 (4.00-5.60); RDW 13.4 % (11.9-15.9); WHITE BLOOD COUNT 7.7 K/mm3 (4.0-10.0)
[2023-01-12 10:10] LABS: POTASSIUM 3.2 mmol/L (3.5-5.1)
[2023-01-12 10:12] LABS: ALBUMIN 3.2 g/dl (3.4-5.0); BLOOD UREA NITROGEN 8.3 mg/dL (7-18); CALCIUM 8.9 mg/dL (8.5-10.1)
[2023-01-12 10:18] LABS: BILIRUBIN,TOTAL 1.3 mg/dL (0.2-1); CREATININE 0.6 mg/dL (0.55-1.3)
[2023-01-12] MEDS: COLLAGENASE CLOSTRIDIUM HIST. 30 GRAMS TUBE TP SCH (11:43)
[2023-01-13] MEDS: GABAPENTIN 400 MG CAPSULE PO SCH ×4 (00:26→17:42)
[2023-01-13] MEDS: BACLOFEN 10 MG TABLET (FP) PO SCH ×4 (00:26→17:42)
[2023-01-13] MEDS: MEROPENEM 1 GM in DEXTROSE 5%-WATER 100 ML IVPB SCH ×3 (01:36→19:56)
[2023-01-13] MEDS: MIDODRINE HCL 5 MG TABLET PO SCH ×4 (04:59→21:08)
[2023-01-13] MEDS: AMINO ACIDS/PROTEIN HYDROLYS 30 ML LIQUID.PKT PO SCH ×2 (09:27→11:57)
[2023-01-13] MEDS: ENOXAPARIN NA (PORCINE) 40 MG/0.4 ML DISP.SYRIN SQ SCH (09:28)
[2023-01-13] MEDS: ASCORBIC ACID 250 MG TABLET (FP) PO SCH ×2 (09:28→21:08)
[2023-01-13] MEDS: MULTIVITAMINS (DAILY MVI) TABLET (FP) PO SCH (09:28)
[2023-01-13 11:35] LABS: BASO % 0.5 % (0-2.0); EOS % 2.8 % (0-4.5); HEMOGLOBIN 14.4 GM/dL (11.7-16.9); LYMPH % 21.7 % (8-40); MCHC 34.4 g/dl (32.0-35.9); MEAN CELL VOLUME 93.2 fl (80-96); MEAN PLT VOLUME 7.8 fl (7.5-11.1); MONO % 9.6 % (3.8-10.2); NEUT % 65.4 % (42.8-82.8); PLATELET COUNT 248 10^3/uL (134-434); RDW 13.4 % (11.9-15.9); WHITE BLOOD COUNT 5.5 K/mm3 (4.0-10.0)
[2023-01-13 11:53] LABS: POTASSIUM 3.2 mmol/L (3.5-5.1)
[2023-01-13 11:57] LABS: ALBUMIN 3.1 g/dl (3.4-5.0); BLOOD UREA NITROGEN 7.1 mg/dL (7-18); CALCIUM 9.2 mg/dL (8.5-10.1)
[2023-01-13 12:01] LABS: CREATININE 0.7 mg/dL (0.55-1.3)
[2023-01-13] MEDS: LACTOBACILLUS ACIDOPHILUS 1 TABLET PO SCH (13:05)
[2023-01-13] MEDS ORDERED: POTASSIUM CHLORIDE ORAL LIQUID 20 MEQ/15 ML PO ONE (13:30)
[2023-01-13] MEDS: COLLAGENASE CLOSTRIDIUM HIST. 30 GRAMS TUBE TP SCH (14:45)
[2023-01-14] MEDS: GABAPENTIN 400 MG CAPSULE PO SCH ×4 (01:12→18:08)
[2023-01-14] MEDS: BACLOFEN 10 MG TABLET (FP) PO SCH ×4 (01:12→18:08)
[2023-01-14] MEDS: MEROPENEM 1 GM in DEXTROSE 5%-WATER 100 ML IVPB SCH ×3 (01:26→18:08)
[2023-01-14] MEDS: MIDODRINE HCL 5 MG TABLET PO SCH ×4 (04:49→22:06)
[2023-01-14] MEDS: ENOXAPARIN NA (PORCINE) 40 MG/0.4 ML DISP.SYRIN SQ SCH (11:11)
[2023-01-14] MEDS: LACTOBACILLUS ACIDOPHILUS 1 TABLET PO SCH (11:11)
[2023-01-14] MEDS: MULTIVITAMINS (DAILY MVI) TABLET (FP) PO SCH (11:12)
[2023-01-14] MEDS: ASCORBIC ACID 250 MG TABLET (FP) PO SCH ×2 (11:12→22:07)
[2023-01-14] MEDS: AMINO ACIDS/PROTEIN HYDROLYS 30 ML LIQUID.PKT PO SCH (11:18)
[2023-01-14] MEDS: COLLAGENASE CLOSTRIDIUM HIST. 30 GRAMS TUBE TP SCH (15:07)
[2023-01-15] MEDS: GABAPENTIN 400 MG CAPSULE PO SCH ×4 (00:32→19:45)
[2023-01-15] MEDS: BACLOFEN 10 MG TABLET (FP) PO SCH ×4 (00:32→19:45)
[2023-01-15] MEDS: MEROPENEM 1 GM in DEXTROSE 5%-WATER 100 ML IVPB SCH ×3 (02:51→19:39)
[2023-01-15] MEDS: MIDODRINE HCL 5 MG TABLET PO SCH ×6 (04:42→22:41)
[2023-01-15] MEDS: ASCORBIC ACID 250 MG TABLET (FP) PO SCH ×2 (09:40→22:40)
[2023-01-15] MEDS: LACTOBACILLUS ACIDOPHILUS 1 TABLET PO SCH (09:40)
[2023-01-15] MEDS: AMINO ACIDS/PROTEIN HYDROLYS 30 ML LIQUID.PKT PO SCH (09:40)
[2023-01-15] MEDS: ENOXAPARIN NA (PORCINE) 40 MG/0.4 ML DISP.SYRIN SQ SCH (09:41)
[2023-01-15] MEDS: MULTIVITAMINS (DAILY MVI) TABLET (FP) PO SCH (09:41)
[2023-01-15] MEDS ORDERED: POTASSIUM CHLORIDE TABS 20 MEQ TABLET.ER (FP) PO ONE ×2 (11:54→13:45)
[2023-01-15 12:43] LABS: MAGNESIUM 1.9 mg/dL (1.8-2.4)
[2023-01-15 12:50] LABS: PHOSPHOROUS 3.2 mg/dL (2.5-4.9)
[2023-01-15] MEDS: COLLAGENASE CLOSTRIDIUM HIST. 30 GRAMS TUBE TP SCH (15:58)
[2023-01-16] MEDS: MEROPENEM 1 GM in DEXTROSE 5%-WATER 100 ML IVPB SCH ×3 (01:37→18:14)
[2023-01-16] MEDS: BACLOFEN 10 MG TABLET (FP) PO SCH ×4 (01:38→18:14)
[2023-01-16] MEDS: GABAPENTIN 400 MG CAPSULE PO SCH ×4 (01:38→18:14)
[2023-01-16] MEDS: MIDODRINE HCL 5 MG TABLET PO SCH ×4 (05:53→21:32)
[2023-01-16] MEDS: LACTOBACILLUS ACIDOPHILUS 1 TABLET PO SCH (09:55)
[2023-01-16] MEDS: ASCORBIC ACID 250 MG TABLET (FP) PO SCH ×2 (09:55→21:32)
[2023-01-16] MEDS: ENOXAPARIN NA (PORCINE) 40 MG/0.4 ML DISP.SYRIN SQ SCH (09:56)
[2023-01-16] MEDS: AMINO ACIDS/PROTEIN HYDROLYS 30 ML LIQUID.PKT PO SCH (09:56)
[2023-01-16] MEDS: MULTIVITAMINS (DAILY MVI) TABLET (FP) PO SCH (09:58)
[2023-01-16 11:22] LABS: BASO % 0.7 % (0-2.0); EOS % 3.6 % (0-4.5); HEMOGLOBIN 13.6 GM/dL (11.7-16.9); LYMPH % 15.4 % (8-40); MCH 32.2 pg (25.7-33.7); MCHC 34.1 g/dl (32.0-35.9); MEAN CELL VOLUME 94.5 fl (80-96); MEAN PLT VOLUME 8.1 fl (7.5-11.1); NEUT % 74.3 % (42.8-82.8); PLATELET COUNT 270 10^3/uL (134-434); RBC 4.23 M/mm3 (4.00-5.60); RDW 13.4 % (11.9-15.9); WHITE BLOOD COUNT 7.6 K/mm3 (4.0-10.0)
[2023-01-16 11:51] LABS: POTASSIUM 3.7 mmol/L (3.5-5.1)
[2023-01-16] MEDS: COLLAGENASE CLOSTRIDIUM HIST. 30 GRAMS TUBE TP SCH (12:07)
[2023-01-16 12:11] LABS: BLOOD UREA NITROGEN 10.2 mg/dL (7-18); MAGNESIUM 2.1 mg/dL (1.8-2.4)
[2023-01-16 12:13] LABS: CREATININE 0.6 mg/dL (0.55-1.3); PHOSPHOROUS 3.2 mg/dL (2.5-4.9)
[2023-01-16 12:15] LABS: BILIRUBIN,TOTAL 0.6 mg/dL (0.2-1); TOT PROT 6.7 g/dl (6.4-8.2)
[2023-01-17] MEDS: GABAPENTIN 400 MG CAPSULE PO SCH ×4 (01:00→17:35)
[2023-01-17] MEDS: MEROPENEM 1 GM in DEXTROSE 5%-WATER 100 ML IVPB SCH ×3 (01:01→17:35)
[2023-01-17] MEDS: BACLOFEN 10 MG TABLET (FP) PO SCH ×4 (01:01→17:35)
[2023-01-17] MEDS: MIDODRINE HCL 5 MG TABLET PO SCH ×3 (05:36→16:51)
[2023-01-17 07:13] VITALS: RESP 18
[2023-01-17] MEDS: ASCORBIC ACID 250 MG TABLET (FP) PO SCH (10:20)
[2023-01-17] MEDS: LACTOBACILLUS ACIDOPHILUS 1 TABLET PO SCH (10:20)
[2023-01-17] MEDS: AMINO ACIDS/PROTEIN HYDROLYS 30 ML LIQUID.PKT PO SCH ×2 (10:20→10:30)
[2023-01-17] MEDS: ENOXAPARIN NA (PORCINE) 40 MG/0.4 ML DISP.SYRIN SQ SCH (10:20)
[2023-01-17] MEDS: MULTIVITAMINS (DAILY MVI) TABLET (FP) PO SCH (10:20)
[2023-01-17] MEDS: COLLAGENASE CLOSTRIDIUM HIST. 30 GRAMS TUBE TP SCH (10:31)
[2023-01-17 18:40] VITALS: BP 96/55; PULSE 88; TEMP 98.3
== END 2023-01-17 21:26 | disposition home or self-care (01) | DRG 463 ==
LOC: JER 18:21 → JERBED 22:46 → J5S 01-10 23:50 → OBSVTOIN 01-11 09:15
PROVIDERS: ADMIT Internal Medicine
DX: N39.0 Urinary tract infection, site not specified (principal); G82.20 Paraplegia, unspecified; B96.4 Proteus (mirabilis) (morganii) as the cause of diseases classified elsewhere; B96.5 Pseudomonas (aeruginosa) (mallei) (pseudomallei) as the cause of diseases classified elsewhere; D72.829 Elevated white blood cell count, unspecified; L89.153 Pressure ulcer of sacral region, stage 3; N20.0 Calculus of kidney; R78.81 Bacteremia; K59.00 Constipation, unspecified; R33.9 Retention of urine, unspecified; B95.7 Other staphylococcus as the cause of diseases classified elsewhere
CPT/HCPCS: 0241U-QW; 36415; 36569; 71045-TC-FY; 73560-TC-RT-FY; 76775-TC; 77001-TC-FY; 80053; 81003; 82550; 82553; 83605; 83735; 84100; 84484; 85025; 85610; 85730; 86850; 86900; 86901; 87040; 87086; 87186; 93005; 93010; 99285-25; C1751; G0378; J0475

== ENCOUNTER 2023-01-18 14:11 | Day surgery (SDC) | payer OTHER ==
[2023-01-18] MEDS ORDERED: ERTAPENEM SODIUM 1 GM in SODIUM CHLORIDE 50 ML IVPB ONE (14:45)
[2023-01-18 14:58] VITALS: PULSE 74; RESP 18; TEMP 97.4
[2023-01-18 15:21] VITALS: BP 96/52
== END 2023-01-18 15:22 | disposition home or self-care (01) ==
LOC: FINFUSION 14:11 → FM/S 14:12 → FINFUSION 15:22
PROVIDERS: ATTEND Internal Medicine Infectious Disease
DX: R78.81 Bacteremia (principal)
CPT/HCPCS: 96365

== ENCOUNTER 2023-01-19 15:06 | Day surgery (SDC) | payer OTHER ==
[2023-01-19] MEDS ORDERED: ERTAPENEM SODIUM 1 GM in SODIUM CHLORIDE 50 ML IVPB ONE (15:30)
[2023-01-19 15:59] VITALS: RESP 18; TEMP 97.6
[2023-01-19 16:21] VITALS: BP 134/100; PULSE 78
== END 2023-01-19 16:23 | disposition home or self-care (01) ==
LOC: FINFUSION 15:06 → FM/S 15:07 → FINFUSION 16:23
PROVIDERS: ATTEND Internal Medicine Infectious Disease
DX: R78.81 Bacteremia (principal)
CPT/HCPCS: 96365

== ENCOUNTER 2023-01-20 17:04 | Day surgery (SDC) | payer OTHER ==
[2023-01-20] MEDS ORDERED: ERTAPENEM SODIUM 1 GM in SODIUM CHLORIDE 50 ML IVPB ONE (17:10)
[2023-01-20 17:41] LABS: HEMATOCRIT 39.3 % (35.4-49); HEMOGLOBIN 12.9 G/dL (11.7-16.9); MCH 32.2 pg (25.7-33.7); MCHC 32.9 g/dl (32.0-35.9); MEAN PLT VOLUME 8.2 fl (7.5-11.1); PLATELET COUNT 257.1 10^3/uL (134-434); RBC 4.01 10^6/uL (4.00-5.60); RDW 13.1 % (11.9-15.9); WHITE BLOOD COUNT 8.8 10^3/uL (4.0-10.8)
[2023-01-20 18:01] LABS: ALBUMIN 3.9 g/dl (3.4-5.0); BLOOD UREA NITROGEN 18.3 mg/dl (7-18); CALCIUM 9.4 mg/dl (8.5-10.1); CREATININE 0.6 mg/dl (0.6-1.3); POTASSIUM 4.2 mmol/L (3.5-5.1); SGOT/AST 19.5 U/L (15-37); SGPT/ALT 17.2 U/L (7-52)
[2023-01-20 18:43] VITALS: BP 92/60; PULSE 67; RESP 16; TEMP 98.8
[2023-01-20 21:55] LABS: BILIRUBIN,TOTAL 0.6 mg/dL (0.2-1)
== END 2023-01-20 18:30 | disposition home or self-care (01) ==
LOC: FINFUSION 17:04 → FM/S 17:05 → FINFUSION 18:30
PROVIDERS: ATTEND Internal Medicine Infectious Disease
DX: R78.81 Bacteremia (principal)
CPT/HCPCS: 36415; 80053; 85027; 96365

== ENCOUNTER 2023-01-21 14:29 | Day surgery (SDC) | payer OTHER ==
[2023-01-21] MEDS ORDERED: ERTAPENEM SODIUM 1 GM in SODIUM CHLORIDE 50 ML IVPB ONE (15:00)
[2023-01-21 15:44] VITALS: BP 98/59; PULSE 64; RESP 18; TEMP 98.3
== END 2023-01-21 15:47 | disposition home or self-care (01) ==
LOC: FINFUSION 14:29 → FM/S 14:29 → FINFUSION 15:47
PROVIDERS: ATTEND Internal Medicine Infectious Disease
DX: R78.81 Bacteremia (principal)
CPT/HCPCS: 96365

== ENCOUNTER 2023-01-22 13:46 | Day surgery (SDC) | payer OTHER ==
[2023-01-22] MEDS ORDERED: ERTAPENEM SODIUM 1 GM in SODIUM CHLORIDE 50 ML IVPB ONE (14:45)
[2023-01-22 16:02] VITALS: BP 126/72; PULSE 76; RESP 18; TEMP 98.1
== END 2023-01-22 15:00 | disposition home or self-care (01) ==
LOC: FM/S 13:46 → FINFUSION 13:46
PROVIDERS: ATTEND Internal Medicine Infectious Disease
DX: R78.81 Bacteremia (principal)
CPT/HCPCS: 96365; 96367

== ENCOUNTER 2023-01-23 13:54 | Day surgery (SDC) | payer OTHER ==
[2023-01-23] MEDS ORDERED: ERTAPENEM SODIUM 1 GM in SODIUM CHLORIDE 50 ML IVPB ONE (14:45)
[2023-01-23 14:50] VITALS: RESP 18; TEMP 98
[2023-01-23 15:17] VITALS: BP 108/76; PULSE 62
== END 2023-01-23 15:45 | disposition home or self-care (01) ==
LOC: FINFUSION 13:54 → FM/S 13:56 → FINFUSION 15:45
PROVIDERS: ATTEND Internal Medicine Infectious Disease
DX: R78.81 Bacteremia (principal)
CPT/HCPCS: 96365

== ENCOUNTER 2023-01-24 13:12 | Day surgery (SDC) | payer OTHER ==
[2023-01-24 13:29] VITALS: TEMP 98
[2023-01-24] MEDS ORDERED: ERTAPENEM SODIUM 1 GM in SODIUM CHLORIDE 50 ML IVPB ONE (13:30)
[2023-01-24 14:49] VITALS: BP 115/62; PULSE 80; RESP 18
== END 2023-01-24 14:49 | disposition home or self-care (01) ==
LOC: FINFUSION 13:12 → FM/S 13:13 → FINFUSION 14:49
PROVIDERS: ATTEND Internal Medicine Infectious Disease
DX: R78.81 Bacteremia (principal)
CPT/HCPCS: 96365

== ENCOUNTER 2023-01-25 14:48 | Day surgery (SDC) | payer OTHER ==
[2023-01-25] MEDS ORDERED: ERTAPENEM SODIUM 1 GM in SODIUM CHLORIDE 50 ML IVPB ONE (15:15)
[2023-01-25 16:02] VITALS: BP 122/80; PULSE 79; RESP 16; TEMP 98.5
== END 2023-01-25 16:55 | disposition home or self-care (01) ==
LOC: FINFUSION 14:48 → FM/S 14:50 → FINFUSION 16:55
PROVIDERS: ATTEND Internal Medicine Infectious Disease
DX: R78.81 Bacteremia (principal)
CPT/HCPCS: 96365

== ENCOUNTER 2023-05-09 07:53 | Inpatient (IN) | payer OTHER ==
[2023-05-09] MEDS: ACETAMINOPHEN 1000 MG/100 ML BAG IVPB ONE (08:46)
[2023-05-09] MEDS ORDERED: ACETAMINOPHEN INJECTION 100 ML IVPB ONE (08:46)
[2023-05-09] MEDS: LACTATED RINGERS SOLUTION 1,000 ML IV STA ×2 (08:46→12:26)
[2023-05-09 09:05] LABS: INR 1.19 (0.83-1.09); PROTHROMBIN TIME (PATIENT) 13.8 SEC (9.7-13.0)
[2023-05-09 09:07] LABS: ACTIVATED PTT 38.4 SECONDS (25.2-36.5)
[2023-05-09 09:21] LABS: POTASSIUM 3.1 mmol/L (3.5-5.1)
[2023-05-09 09:23] LABS: ALBUMIN 3.4 g/dl (3.4-5.0); CALCIUM 9.5 mg/dL (8.5-10.1)
[2023-05-09 09:24] LABS: BLOOD UREA NITROGEN 8.4 mg/dL (7-18)
[2023-05-09 09:26] LABS: CREATININE 0.7 mg/dL (0.55-1.3)
[2023-05-09 09:28] LABS: BILIRUBIN,TOTAL 1.1 mg/dL (0.2-1); TOT PROT 7.8 g/dl (6.4-8.2)
[2023-05-09 10:40] LABS: EPI CELLS 5 /uL (0-25.1); HYALINE CASTS 0 /uL (0-3.1); URINE APPEARANCE CLOUDY; URINE BILIRUBIN NEGATIVE (NEGATIVE); URINE COLOR DK YELLOW; URINE GLUCOSE (UA) NEGATIVE (NEGATIVE); URINE KETONE NEGATIVE (NEGATIVE); URINE LEUK ESTERASE 3+ (NEGATIVE); URINE NITRITE POSITIVE (NEGATIVE); URINE PROTEIN TRACE (NEGATIVE); URINE RBC 65 /uL (0-23.9); URINE WBC 2102 /uL (0-25.8)
[2023-05-09] MEDS ORDERED: MEROPENEM 1 GM VIAL (RESTRICTED TO ID) IVPB ONE ×2 (11:47→18:58)
[2023-05-09] MEDS ORDERED: ALBUTEROL SO4 2.5/IPRATROPIUM 0.5 INH SOL 3 ML VIAL.NEB. NEB ONE (11:47)
[2023-05-09] MEDS ORDERED: POTASSIUM CHLORIDE ORAL LIQUID 20 MEQ/15 ML ONE (11:48)
[2023-05-09 12:01] LABS: URINE BACTERIA 828.3 /uL (0-1359)
[2023-05-09] MEDS: KCL 10 MEQ IVPB 10 MEQ/100 ML INFUS.BAG IVPB SCH (12:06)
[2023-05-09] MEDS: GABAPENTIN 400 MG CAPSULE PO SCH (12:06)
[2023-05-09 12:13] LABS: BASO % 0.3 % (0-2.0); HEMATOCRIT 36.1 % (35.4-49); HEMOGLOBIN 12.3 GM/dL (11.7-16.9); LYMPH % 10.6 % (8-40); MCH 32.2 pg (25.7-33.7); MEAN CELL VOLUME 94.5 fl (80-96); MEAN PLT VOLUME 8.2 fl (7.5-11.1); NEUT % 80.1 % (42.8-82.8); PLATELET COUNT 176 10^3/uL (134-434); RBC 3.81 M/mm3 (4.00-5.60); RDW 12.8 % (11.9-15.9); WHITE BLOOD COUNT 6.4 K/mm3 (4.0-10.0)
[2023-05-09] MEDS ORDERED: oxyCODONE HCL 5 MG TABLET PO PRN (12:15)
[2023-05-09] MEDS: ALBUTEROL SO4 2.5/IPRATROPIUM 0.5 INH SOL 3 ML VIAL.NEB. NEB SCH (12:16)
[2023-05-09] MEDS: MEROPENEM 1 GM in DEXTROSE 5%-WATER 100 ML IVPB ONE (12:16)
[2023-05-09] MEDS: POTASSIUM CHLORIDE ORAL LIQUID 20 MEQ/15 ML PO ONE (12:16)
[2023-05-09] MEDS: MIDODRINE HCL 5 MG TABLET PO SCH (13:54)
[2023-05-09] MEDS ORDERED: MIDODRINE HCL 5 MG TABLET ONE ×2 (13:54→22:14)
[2023-05-09] MEDS: BACLOFEN 10 MG TABLET (FP) PO PRN (13:58)
[2023-05-09] MEDS ORDERED: BACLOFEN 10 MG TABLET (FP) ONE (13:58)
[2023-05-09] MEDS: LACTATED RINGERS SOLUTION 1,000 ML IV SCH (14:10)
[2023-05-09] MEDS ORDERED: MEROPENEM 1 GM in DEXTROSE 5%-WATER 100 ML IVPB SCH (18:00)
[2023-05-09] MEDS: MEROPENEM 1 GM in DEXTROSE 5%-WATER 100 ML IVPB SCH (18:59)
[2023-05-09] MEDS ORDERED: GABAPENTIN 400 MG CAPSULE ONE (19:49)
[2023-05-10 08:17] LABS: BASO % 0.2 % (0-2.0); HEMATOCRIT 41.2 % (35.4-49); HEMOGLOBIN 14.4 GM/dL (11.7-16.9); LYMPH % 9.8 % (8-40); MCH 32.9 pg (25.7-33.7); MEAN CELL VOLUME 94.1 fl (80-96); MEAN PLT VOLUME 8.6 fl (7.5-11.1); MONO % 8.9 % (3.8-10.2); NEUT % 81.1 % (42.8-82.8); PLATELET COUNT 199 10^3/uL (134-434); RBC 4.38 M/mm3 (4.00-5.60); RDW 13.1 % (11.9-15.9); WHITE BLOOD COUNT 6.9 K/mm3 (4.0-10.0)
[2023-05-10 08:30] LABS: POTASSIUM 3.1 mmol/L (3.5-5.1)
[2023-05-10 08:36] LABS: ALBUMIN 3.2 g/dl (3.4-5.0); MAGNESIUM 1.9 mg/dL (1.8-2.4)
[2023-05-10 08:39] LABS: CREATININE 0.6 mg/dL (0.55-1.3); PHOSPHOROUS 2.8 mg/dL (2.5-4.9)
[2023-05-10 08:41] LABS: BILIRUBIN,TOTAL 2.4 mg/dL (0.2-1)
[2023-05-10 08:43] LABS: TOT PROT 7.3 g/dl (6.4-8.2)
[2023-05-10] MEDS: POTASSIUM CHLORIDE ORAL LIQUID 20 MEQ/15 ML PO ONE (10:11)
[2023-05-10] MEDS: ENOXAPARIN NA (PORCINE) 40 MG/0.4 ML DISP.SYRIN SQ SCH (10:11)
[2023-05-10] MEDS: ALBUTEROL SO4 2.5/IPRATROPIUM 0.5 INH SOL 3 ML VIAL.NEB. NEB ONE (13:25)
[2023-05-10 13:29] LABS: N-TERMINAL BNP 276.6 pg/ml (5-125)
[2023-05-10] MEDS: FUROSEMIDE 40 MG/4 ML INJECTABLE VIAL IVPUSH ONE (13:55)
[2023-05-10] MEDS: POTASSIUM CHLORIDE ORAL LIQUID 20 MEQ/15 ML PO SCH (19:27)
[2023-05-10] MEDS: MEROPENEM 1 GM in DEXTROSE 5%-WATER 100 ML IVPB SCH (19:27)
[2023-05-11 08:44] LABS: BASO % 0.4 % (0-2.0); EOS % 0.2 % (0-4.5); HEMATOCRIT 38.6 % (35.4-49); HEMOGLOBIN 13.6 GM/dL (11.7-16.9); LYMPH % 17.7 % (8-40); MCH 33.3 pg (25.7-33.7); MCHC 35.3 g/dl (32.0-35.9); MEAN CELL VOLUME 94.2 fl (80-96); MEAN PLT VOLUME 8.7 fl (7.5-11.1); MONO % 10.8 % (3.8-10.2); NEUT % 70.9 % (42.8-82.8); PLATELET COUNT 190 10^3/uL (134-434); WHITE BLOOD COUNT 5.5 K/mm3 (4.0-10.0)
[2023-05-11 11:45] LABS: POTASSIUM 3.3 mmol/L (3.5-5.1)
[2023-05-11 12:23] LABS: CREATININE 0.6 mg/dL (0.55-1.3)
[2023-05-11 12:24] LABS: TOT PROT 7.2 g/dl (6.4-8.2)
[2023-05-11 13:07] LABS: CALCIUM 9.1 mg/dL (8.5-10.1)
[2023-05-11 13:08] LABS: ALBUMIN 3.2 g/dl (3.4-5.0); BLOOD UREA NITROGEN 10.5 mg/dL (7-18); MAGNESIUM 1.8 mg/dL (1.8-2.4)
[2023-05-11] MEDS: MAGNESIUM 1GM/D5W - 1 GM/100 ML IVPB IVPB ONE (14:17)
[2023-05-11 14:37] VITALS: BMI 24.6
[2023-05-11] MEDS: AMINO ACIDS/PROTEIN HYDROLYS 30 ML LIQUID.PKT PO SCH (17:54)
[2023-05-11] MEDS: ALBUTEROL SO4 2.5/IPRATROPIUM 0.5 INH SOL 3 ML VIAL.NEB. NEB ONE (18:52)
[2023-05-11] MEDS: BACLOFEN 10 MG TABLET (FP) PO SCH (21:08)
[2023-05-12] MEDS ORDERED: MEROPENEM 1 GM VIAL (RESTRICTED TO ID) IVPB ONE (01:51)
[2023-05-12 08:40] LABS: BASO % 0.2 % (0-2.0); EOS % 0.7 % (0-4.5); HEMATOCRIT 38.6 % (35.4-49); HEMOGLOBIN 13.4 GM/dL (11.7-16.9); LYMPH % 20.4 % (8-40); MCH 32.5 pg (25.7-33.7); MCHC 34.7 g/dl (32.0-35.9); MEAN CELL VOLUME 93.8 fl (80-96); MEAN PLT VOLUME 8.5 fl (7.5-11.1); MONO % 10.9 % (3.8-10.2); NEUT % 67.8 % (42.8-82.8); PLATELET COUNT 199 10^3/uL (134-434); RBC 4.11 M/mm3 (4.00-5.60); RDW 12.7 % (11.9-15.9); WHITE BLOOD COUNT 4.4 K/mm3 (4.0-10.0)
[2023-05-12 09:02] LABS: POTASSIUM 3.1 mmol/L (3.5-5.1)
[2023-05-12 09:20] LABS: ALBUMIN 3.1 g/dl (3.4-5.0); CREATININE 0.5 mg/dL (0.55-1.3); MAGNESIUM 2.3 mg/dL (1.8-2.4)
[2023-05-12 09:21] LABS: BLOOD UREA NITROGEN 9.3 mg/dL (7-18)
[2023-05-12 09:22] LABS: BILIRUBIN,TOTAL 2.3 mg/dL (0.2-1); TOT PROT 7.1 g/dl (6.4-8.2)
[2023-05-12 09:23] LABS: CALCIUM 9.1 mg/dL (8.5-10.1)
[2023-05-12] MEDS: ASCORBIC ACID 500 MG TABLET (FP) PO SCH (10:11)
[2023-05-12] MEDS: MULTIVITAMINS (DAILY MVI) TABLET (FP) PO SCH (10:11)
[2023-05-12] MEDS: MIDODRINE HCL 5 MG TABLET PO ONE (12:36)
[2023-05-12] MEDS: GABAPENTIN 400 MG CAPSULE PO SCH (15:01)
[2023-05-12] MEDS: ERTAPENEM SODIUM 1 GM in SODIUM CHLORIDE 50 ML IVPB SCH (18:07)
[2023-05-12] MEDS: MIDODRINE HCL 5 MG TABLET PO SCH (20:01)
[2023-05-13 09:06] LABS: BASO % 0.7 % (0-2.0); EOS % 0.7 % (0-4.5); HEMOGLOBIN 13.9 GM/dL (11.7-16.9); LYMPH % 26.7 % (8-40); MCH 32.8 pg (25.7-33.7); MCHC 34.8 g/dl (32.0-35.9); MEAN CELL VOLUME 94.5 fl (80-96); MONO % 11.4 % (3.8-10.2); NEUT % 60.5 % (42.8-82.8); PLATELET COUNT 220 10^3/uL (134-434); RBC 4.24 M/mm3 (4.00-5.60); RDW 12.8 % (11.9-15.9); WHITE BLOOD COUNT 5.2 K/mm3 (4.0-10.0)
[2023-05-13 09:30] LABS: POTASSIUM 3.4 mmol/L (3.5-5.1)
[2023-05-13 09:47] LABS: CALCIUM 9.5 mg/dL (8.5-10.1)
[2023-05-13 09:48] LABS: ALBUMIN 3.3 g/dl (3.4-5.0); MAGNESIUM 2.2 mg/dL (1.8-2.4)
[2023-05-13 09:51] LABS: CREATININE 0.5 mg/dL (0.55-1.3)
[2023-05-13 09:52] LABS: BILIRUBIN,TOTAL 2.1 mg/dL (0.2-1); TOT PROT 7.4 g/dl (6.4-8.2)
[2023-05-13] MEDS: ERTAPENEM SODIUM 1 GM in SODIUM CHLORIDE 50 ML IVPB ONE (14:33)
[2023-05-13] MEDS: ALBUTEROL SO4 2.5/IPRATROPIUM 0.5 INH SOL 3 ML VIAL.NEB. NEB PRN (20:05)
[2023-05-14 06:26] VITALS: PULSE 50
[2023-05-14 09:10] LABS: BASO % 0.6 % (0-2.0); EOS % 1.5 % (0-4.5); HEMATOCRIT 40.5 % (35.4-49); HEMOGLOBIN 13.7 GM/dL (11.7-16.9); LYMPH % 21.8 % (8-40); MCH 32.1 pg (25.7-33.7); MCHC 33.9 g/dl (32.0-35.9); MEAN CELL VOLUME 94.7 fl (80-96); MEAN PLT VOLUME 8.4 fl (7.5-11.1); MONO % 10.6 % (3.8-10.2); NEUT % 65.5 % (42.8-82.8); PLATELET COUNT 258 10^3/uL (134-434); RBC 4.28 M/mm3 (4.00-5.60); RDW 13.2 % (11.9-15.9); WHITE BLOOD COUNT 6.3 K/mm3 (4.0-10.0)
[2023-05-14 09:30] LABS: POTASSIUM 3.6 mmol/L (3.5-5.1)
[2023-05-14 09:44] LABS: CALCIUM 9.5 mg/dL (8.5-10.1)
[2023-05-14 09:45] LABS: ALBUMIN 3.2 g/dl (3.4-5.0); BLOOD UREA NITROGEN 7.7 mg/dL (7-18); MAGNESIUM 2.2 mg/dL (1.8-2.4)
[2023-05-14 09:48] LABS: CREATININE 0.6 mg/dL (0.55-1.3)
[2023-05-14 09:49] LABS: BILIRUBIN,TOTAL 1.2 mg/dL (0.2-1); TOT PROT 7.2 g/dl (6.4-8.2)
[2023-05-14] MEDS: ERTAPENEM SODIUM 1 GM in SODIUM CHLORIDE 50 ML IVPB SCH (09:56)
[2023-05-14 09:59] VITALS: RESP 20
[2023-05-14 18:07] VITALS: BP 126/78; TEMP 98
== END 2023-05-14 18:09 | disposition home or self-care (01) | DRG 463 ==
LOC: JER 07:53 → JERBED 11:19 → J7W 05-10 00:06 → J8W 05-11 14:44
PROVIDERS: ADMIT Internal Medicine; ATTEND Nurse Practitioner Family
DX: N39.0 Urinary tract infection, site not specified (principal); B96.4 Proteus (mirabilis) (morganii) as the cause of diseases classified elsewhere; J18.9 Pneumonia, unspecified organism; L89.153 Pressure ulcer of sacral region, stage 3; G82.20 Paraplegia, unspecified; E87.6 Hypokalemia
CPT/HCPCS: 0241U-QW; 36415; 71045-TC-FY; 80053; 81003; 82550; 82553; 83605; 83735; 83880; 84100; 84484; 85025; 85610; 85730; 86850; 86900; 86901; 87040; 87086; 87186; 93005; 93010; 94640; 97162-GP; 99285-25; J0131; J0475

== ENCOUNTER 2023-11-28 13:58 | Inpatient (IN) | payer OTHER ==
[2023-11-28 14:26] VITALS: BMI 25.8
[2023-11-28] MEDS ORDERED: ONDANSETRON 4 MG/2 ML VIAL ONE (15:43)
[2023-11-28] MEDS: ONDANSETRON 4 MG/2 ML VIAL IVPUSH ONE (15:51)
[2023-11-28 16:08] LABS: BASO % 0.8 % (0-2.0); HEMATOCRIT 48.2 % (35.4-49); HEMOGLOBIN 16.1 GM/dL (11.7-16.9); LYMPH % 6.8 % (8-40); MCH 32.5 pg (25.7-33.7); MCHC 33.5 g/dl (32.0-35.9); MEAN CELL VOLUME 97.1 fl (80-96); MONO % 6.4 % (3.8-10.2); RBC 4.96 M/mm3 (4.00-5.60); RDW 12.9 % (11.9-15.9); WHITE BLOOD COUNT 15.7 K/mm3 (4.0-10.0)
[2023-11-28 16:15] LABS: POTASSIUM 3.6 mmol/L (3.5-5.1)
[2023-11-28 16:17] LABS: CALCIUM 10.1 mg/dL (8.5-10.1)
[2023-11-28 16:18] LABS: BLOOD UREA NITROGEN 14.6 mg/dL (7-18)
[2023-11-28 16:21] LABS: CREATININE 0.9 mg/dL (0.55-1.3)
[2023-11-28 16:22] LABS: BILIRUBIN,TOTAL 1.2 mg/dL (0.2-1); TOT PROT 8.2 g/dl (6.4-8.2)
[2023-11-28 16:34] LABS: INR 1.05 (0.83-1.09); PROTHROMBIN TIME (PATIENT) 11.8 SEC (9.7-13.0)
[2023-11-28 16:37] LABS: ACTIVATED PTT 39.5 SECONDS (25.2-36.5)
[2023-11-28] MEDS ORDERED: HEPARIN INFUSION - 25,000 UNITS/500 ML INFUS.BAG IVPB ONE (19:10)
[2023-11-28] MEDS ORDERED: HEPARIN NA (PORCINE) 5,000 UNITS/ML 1ML VIAL ONE (19:10)
[2023-11-28] MEDS ORDERED: ASPIRIN 81 MG CHEWABLE TABLETS ONE (19:10)
[2023-11-28 19:30] LABS: EPI CELLS 6 /uL (0-25.1); HYALINE CASTS 0 /uL (0-3.1); URINE APPEARANCE CLOUDY; URINE BACTERIA 8297 /uL (0-1359); URINE BILIRUBIN NEGATIVE (NEGATIVE); URINE COLOR YELLOW; URINE GLUCOSE (UA) NEGATIVE (NEGATIVE); URINE KETONE NEGATIVE (NEGATIVE); URINE LEUK ESTERASE 2+ (NEGATIVE); URINE NITRITE POSITIVE (NEGATIVE); URINE PROTEIN 2+ (NEGATIVE); URINE RBC 303 /uL (0-23.9); URINE WBC 1399 /uL (0-25.8)
[2023-11-28] MEDS: HEPARIN NA (PORCINE) 5,000 UNITS/ML 1ML VIAL IVPUSH ONE (19:35)
[2023-11-28] MEDS: HEPARIN INFUSION - 25,000 UNITS/500 ML INFUS.BAG IVPB SCH (19:35)
[2023-11-28] MEDS: ASPIRIN 81 MG CHEWABLE TABLETS PO ONE (19:35)
[2023-11-28] MEDS ORDERED: MEROPENEM 1 GM VIAL (RESTRICTED TO ID) IVPB ONE (20:09)
[2023-11-28] MEDS: MEROPENEM 1 GM in DEXTROSE 5%-WATER 100 ML IVPB ONE (20:20)
[2023-11-28 20:34] LABS: MAGNESIUM 2.1 mg/dL (1.8-2.4)
[2023-11-29] MEDS ORDERED: BACLOFEN 10 MG TABLET (FP) ONE ×2 (01:47→20:54)
[2023-11-29] MEDS ORDERED: MEROPENEM 1 GM VIAL (RESTRICTED TO ID) IVPB ONE ×3 (01:48→18:23)
[2023-11-29] MEDS: BACLOFEN 10 MG TABLET (FP) PO ONE (01:58)
[2023-11-29] MEDS: MEROPENEM 1 GM in DEXTROSE 5%-WATER 100 ML IVPB SCH ×2 (01:58→18:36)
[2023-11-29] MEDS ORDERED: MEROPENEM 1 GM in DEXTROSE 5%-WATER 100 ML IVPB SCH (02:00)
[2023-11-29] MEDS ORDERED: MELATONIN 5 MG TABLETS ONE (03:22)
[2023-11-29] MEDS ORDERED: ACETAMINOPHEN INJECTION 100 ML IVPB ONE (03:22)
[2023-11-29] MEDS: ACETAMINOPHEN 1000 MG/100 ML BAG IVPB ONE (03:31)
[2023-11-29] MEDS: MELATONIN 5 MG TABLETS PO ONE (03:31)
[2023-11-29 06:34] LABS: BASO % 0.2 % (0-2.0); EOS % 0.3 % (0-4.5); HEMATOCRIT 40.6 % (35.4-49); HEMOGLOBIN 13.8 GM/dL (11.7-16.9); LYMPH % 13.8 % (8-40); MCH 32.9 pg (25.7-33.7); MCHC 34.1 g/dl (32.0-35.9); MEAN CELL VOLUME 96.6 fl (80-96); MEAN PLT VOLUME 8.5 fl (7.5-11.1); MONO % 7.5 % (3.8-10.2); NEUT % 78.2 % (42.8-82.8); PLATELET COUNT 203 10^3/uL (134-434); RBC 4.21 M/mm3 (4.00-5.60); RDW 12.7 % (11.9-15.9); WHITE BLOOD COUNT 10.6 K/mm3 (4.0-10.0)
[2023-11-29 06:53] LABS: POTASSIUM 3.1 mmol/L (3.5-5.1)
[2023-11-29 06:57] LABS: CALCIUM 8.6 mg/dL (8.5-10.1)
[2023-11-29 06:58] LABS: BLOOD UREA NITROGEN 11.2 mg/dL (7-18)
[2023-11-29 07:01] LABS: CREATININE 0.9 mg/dL (0.55-1.3)
[2023-11-29 07:02] LABS: BILIRUBIN,TOTAL 1.1 mg/dL (0.2-1); TOT PROT 6.7 g/dl (6.4-8.2)
[2023-11-29 07:06] LABS: N-TERMINAL BNP 7643.2 pg/ml (5-125)
[2023-11-29] MEDS ORDERED: POTASSIUM CHLORIDE TABS 20 MEQ TABLET.ER (FP) PO ONE (07:53)
[2023-11-29] MEDS ORDERED: MAGNESIUM CITRATE 300 ML BOTTLE ONE (07:54)
[2023-11-29] MEDS ORDERED: KCL 10 MEQ IVPB 20 MEQ/200 ML INFUS.BAG IVPB ONE (07:54)
[2023-11-29] MEDS: MINERAL OIL ENEMA 133 ML ENEMA RC ONE (08:23)
[2023-11-29] MEDS: MAGNESIUM CITRATE 300 ML BOTTLE PO ONE (08:23)
[2023-11-29] MEDS: KCL 10 MEQ IVPB 10 MEQ/100 ML INFUS.BAG IVPB SCH (08:23)
[2023-11-29] MEDS: POTASSIUM CHLORIDE ORAL LIQUID 20 MEQ/15 ML PO ONE (08:23)
[2023-11-29] MEDS ORDERED: METOPROLOL TARTRATE 25 MG TABLET (FP) ONE (09:55)
[2023-11-29] MEDS ORDERED: ASPIRIN 81 MG CHEWABLE TABLETS ONE (09:55)
[2023-11-29 09:59] LABS: MAGNESIUM 1.9 mg/dL (1.8-2.4)
[2023-11-29 10:03] LABS: PHOSPHOROUS 2.4 mg/dL (2.5-4.9)
[2023-11-29] MEDS: METOPROLOL TARTRATE 25 MG TABLET (FP) PO SCH (10:08)
[2023-11-29] MEDS: ASPIRIN 81 MG CHEWABLE TABLETS PO SCH (10:08)
[2023-11-29] MEDS: HEPARIN NA (PORCINE) 5,000 UNITS/ML 1ML VIAL SQ SCH (14:14)
[2023-11-29] MEDS ORDERED: PIPERACILLIN/TAZOB 3.375 GM 3.375 GM in DEXTROSE 5%-WATER - 50 ML IVPB SCH (18:00)
[2023-11-29] MEDS ORDERED: POLYETHYLENE GLYCOL (HEALTHYLAX) 3350 17 GM PACKET ONE (18:43)
[2023-11-29] MEDS: POLYETHYLENE GLYCOL (HEALTHYLAX) 3350 17 GM PACKET PO SCH (19:11)
[2023-11-29] MEDS ORDERED: GABAPENTIN 400 MG CAPSULE ONE (20:54)
[2023-11-29] MEDS ORDERED: ATORVASTATIN CA 40 MG TABLET (FP) ONE (20:54)
[2023-11-29] MEDS: BACLOFEN 10 MG TABLET (FP) PO SCH (21:04)
[2023-11-29] MEDS: ATORVASTATIN CA 40 MG TABLET (FP) PO SCH (21:04)
[2023-11-29] MEDS: GABAPENTIN 400 MG CAPSULE PO SCH (21:05)
[2023-11-30 08:31] LABS: BASO % 0.5 % (0-2.0); EOS % 0.7 % (0-4.5); HEMATOCRIT 44.4 % (35.4-49); HEMOGLOBIN 15.1 GM/dL (11.7-16.9); LYMPH % 14.5 % (8-40); MCH 32.8 pg (25.7-33.7); MEAN CELL VOLUME 96.5 fl (80-96); MEAN PLT VOLUME 8.9 fl (7.5-11.1); MONO % 10.3 % (3.8-10.2); PLATELET COUNT 207 10^3/uL (134-434); RDW 12.8 % (11.9-15.9); WHITE BLOOD COUNT 8.1 K/mm3 (4.0-10.0)
[2023-11-30 08:37] LABS: POTASSIUM 4.1 mmol/L (3.5-5.1)
[2023-11-30 08:45] LABS: BLOOD UREA NITROGEN 10.9 mg/dL (7-18); CALCIUM 9.4 mg/dL (8.5-10.1); MAGNESIUM 2.4 mg/dL (1.8-2.4)
[2023-11-30 08:46] LABS: CREATININE 0.7 mg/dL (0.55-1.3)
[2023-11-30 08:47] LABS: ALBUMIN 3.7 g/dl (3.4-5.0); BILIRUBIN,TOTAL 1.4 mg/dL (0.2-1); TOT PROT 7.6 g/dl (6.4-8.2)
[2023-11-30] MEDS: POLYETHYLENE GLYCOL (HEALTHYLAX) 3350 17 GM PACKET PO SCH ×2 (10:22→21:21)
[2023-11-30] MEDS: METOPROLOL TARTRATE 25 MG TABLET (FP) PO SCH (10:22)
[2023-11-30] MEDS: ASPIRIN 81 MG CHEWABLE TABLETS PO SCH (10:22)
[2023-11-30] MEDS: MEROPENEM 1 GM in DEXTROSE 5%-WATER 100 ML IVPB SCH (10:22)
[2023-11-30] MEDS: LACTULOSE 20 GM/30 ML UDC (FOR ORAL USE ONLY) PO ONE (11:39)
[2023-11-30] MEDS: HEPARIN NA (PORCINE) 5,000 UNITS/ML 1ML VIAL SQ SCH (13:36)
[2023-11-30] MEDS: GABAPENTIN 400 MG CAPSULE PO SCH (13:37)
[2023-11-30] MEDS: BACLOFEN 10 MG TABLET (FP) PO SCH (13:37)
[2023-11-30] MEDS: MIDODRINE HCL 5 MG TABLET PO SCH (17:22)
[2023-11-30] MEDS: ATORVASTATIN CA 40 MG TABLET (FP) PO SCH (21:21)
[2023-12-01 09:25] LABS: BASO % 0.6 % (0-2.0); EOS % 1.3 % (0-4.5); HEMATOCRIT 44.5 % (35.4-49); HEMOGLOBIN 15.7 GM/dL (11.7-16.9); LYMPH % 14.1 % (8-40); MCH 33.5 pg (25.7-33.7); MCHC 35.2 g/dl (32.0-35.9); MEAN PLT VOLUME 8.3 fl (7.5-11.1); MONO % 8.9 % (3.8-10.2); NEUT % 75.1 % (42.8-82.8); PLATELET COUNT 223 10^3/uL (134-434); RBC 4.69 M/mm3 (4.00-5.60); RDW 12.6 % (11.9-15.9); WHITE BLOOD COUNT 9.5 K/mm3 (4.0-10.0)
[2023-12-01 13:04] LABS: POTASSIUM 4.4 mmol/L (3.5-5.1)
[2023-12-01 13:06] LABS: ALBUMIN 4.2 g/dl (3.4-5.0); BLOOD UREA NITROGEN 11.9 mg/dL (7-18); MAGNESIUM 2.5 mg/dL (1.8-2.4)
[2023-12-01 13:09] LABS: CREATININE 0.8 mg/dL (0.55-1.3); PHOSPHOROUS 3.4 mg/dL (2.5-4.9)
[2023-12-01 13:11] LABS: BILIRUBIN,TOTAL 1.3 mg/dL (0.2-1); TOT PROT 8.3 g/dl (6.4-8.2)
[2023-12-01] MEDS: GLYCERIN 1 RECTAL SUPPOSITORY, ADULT RC ONE (20:57)
[2023-12-01] MEDS: SODIUM CHLORIDE 500 ML IV STA ×2 (22:06→22:10)
[2023-12-01] MEDS: MIDODRINE HCL 5 MG TABLET PO SCH (22:08)
[2023-12-02] MEDS: DEXTROSE 5%-LACTATED RINGERS 1,000 ML IV SCH (02:02)
[2023-12-02 07:51] LABS: BASO % 0.4 % (0-2.0); EOS % 2.2 % (0-4.5); HEMATOCRIT 40.7 % (35.4-49); HEMOGLOBIN 13.9 GM/dL (11.7-16.9); LYMPH % 19.1 % (8-40); MCHC 34.3 g/dl (32.0-35.9); MEAN CELL VOLUME 96.1 fl (80-96); MEAN PLT VOLUME 8.7 fl (7.5-11.1); MONO % 9.7 % (3.8-10.2); NEUT % 68.6 % (42.8-82.8); PLATELET COUNT 215 10^3/uL (134-434); RBC 4.23 M/mm3 (4.00-5.60); RDW 12.5 % (11.9-15.9); WHITE BLOOD COUNT 9.1 K/mm3 (4.0-10.0)
[2023-12-02 07:58] LABS: POTASSIUM 3.6 mmol/L (3.5-5.1)
[2023-12-02 08:03] LABS: BLOOD UREA NITROGEN 14.5 mg/dL (7-18); CALCIUM 8.8 mg/dL (8.5-10.1); MAGNESIUM 2.1 mg/dL (1.8-2.4)
[2023-12-02 08:05] LABS: CREATININE 0.7 mg/dL (0.55-1.3)
[2023-12-02 08:07] LABS: ALBUMIN 3.1 g/dl (3.4-5.0); BILIRUBIN,TOTAL 1.1 mg/dL (0.2-1)
[2023-12-02 08:21] LABS: TOT PROT 6.2 g/dl (6.4-8.2)
[2023-12-02] MEDS: ASPIRIN COATED 81 MG TABLET.EC PO SCH (10:09)
[2023-12-02] MEDS: GLYCERIN 1 RECTAL SUPPOSITORY, ADULT RC ONE (17:00)
[2023-12-02] MEDS: MINERAL OIL ENEMA 133 ML ENEMA RC ONE (17:41)
[2023-12-02] MEDS ORDERED: MIDODRINE HCL 5 MG TABLET PO ONE (22:00)
[2023-12-03 07:11] LABS: BASO % 0.6 % (0-2.0); EOS % 2.2 % (0-4.5); HEMATOCRIT 42.4 % (35.4-49); HEMOGLOBIN 14.4 GM/dL (11.7-16.9); LYMPH % 17.5 % (8-40); MCH 32.9 pg (25.7-33.7); MEAN CELL VOLUME 96.7 fl (80-96); MEAN PLT VOLUME 8.4 fl (7.5-11.1); MONO % 7.7 % (3.8-10.2); PLATELET COUNT 226 10^3/uL (134-434); RBC 4.38 M/mm3 (4.00-5.60); RDW 12.4 % (11.9-15.9)
[2023-12-03 07:20] LABS: POTASSIUM 3.4 mmol/L (3.5-5.1)
[2023-12-03 07:22] LABS: CALCIUM 9.3 mg/dL (8.5-10.1)
[2023-12-03 07:26] LABS: ALBUMIN 3.3 g/dl (3.4-5.0); BLOOD UREA NITROGEN 11.5 mg/dL (7-18); CREATININE 0.7 mg/dL (0.55-1.3)
[2023-12-03 07:27] LABS: TOT PROT 6.7 g/dl (6.4-8.2)
[2023-12-03] MEDS: POTASSIUM CHLORIDE ORAL LIQUID 20 MEQ/15 ML PO ONE (11:36)
[2023-12-03] MEDS ORDERED: GLYCERIN 1 RECTAL SUPPOSITORY, ADULT RC PRN (19:46)
[2023-12-04 11:20] LABS: BASO % 0.7 % (0-2.0); EOS % 2.1 % (0-4.5); HEMATOCRIT 42.6 % (35.4-49); HEMOGLOBIN 14.4 GM/dL (11.7-16.9); LYMPH % 20.1 % (8-40); MCH 32.8 pg (25.7-33.7); MCHC 33.7 g/dl (32.0-35.9); MEAN CELL VOLUME 97.4 fl (80-96); MEAN PLT VOLUME 8.6 fl (7.5-11.1); MONO % 7.4 % (3.8-10.2); NEUT % 69.7 % (42.8-82.8); PLATELET COUNT 232 10^3/uL (134-434); RBC 4.37 M/mm3 (4.00-5.60); RDW 12.6 % (11.9-15.9); WHITE BLOOD COUNT 8.2 K/mm3 (4.0-10.0)
[2023-12-04] MEDS ORDERED: REGADENOSON 0.4 MG/5 ML PRE-FILLED SYRINGE IVPUSH ONE (11:24)
[2023-12-04 11:39] LABS: CALCIUM 9.1 mg/dL (8.5-10.1)
[2023-12-04 11:40] LABS: ALBUMIN 3.2 g/dl (3.4-5.0); BLOOD UREA NITROGEN 10.9 mg/dL (7-18); MAGNESIUM 2.3 mg/dL (1.8-2.4)
[2023-12-04 11:43] LABS: CREATININE 0.6 mg/dL (0.55-1.3); PHOSPHOROUS 3.1 mg/dL (2.5-4.9)
[2023-12-04 11:44] LABS: BILIRUBIN,TOTAL 1.3 mg/dL (0.2-1)
[2023-12-04 11:45] LABS: TOT PROT 6.9 g/dl (6.4-8.2)
[2023-12-04] MEDS: REGADENOSON 0.4 MG/5 ML PRE-FILLED SYRINGE IVPUSH ONE (12:35)
[2023-12-05] MEDS: LACTOBACILLUS ACIDOPHILUS 1 TABLET PO SCH (21:50)
[2023-12-06 08:27] LABS: BASO % 0.5 % (0-2.0); HEMATOCRIT 40.5 % (35.4-49); HEMOGLOBIN 13.9 GM/dL (11.7-16.9); MCH 32.9 pg (25.7-33.7); MCHC 34.3 g/dl (32.0-35.9); MEAN CELL VOLUME 95.9 fl (80-96); MEAN PLT VOLUME 8.9 fl (7.5-11.1); MONO % 8.2 % (3.8-10.2); NEUT % 70.3 % (42.8-82.8); PLATELET COUNT 242 10^3/uL (134-434); RBC 4.23 M/mm3 (4.00-5.60); RDW 12.5 % (11.9-15.9); WHITE BLOOD COUNT 7.6 K/mm3 (4.0-10.0)
[2023-12-06 08:37] LABS: POTASSIUM 3.7 mmol/L (3.5-5.1)
[2023-12-06 08:43] LABS: BLOOD UREA NITROGEN 11.2 mg/dL (7-18)
[2023-12-06 08:44] LABS: ALBUMIN 3.2 g/dl (3.4-5.0)
[2023-12-06 08:47] LABS: CREATININE 0.6 mg/dL (0.55-1.3); PHOSPHOROUS 3.3 mg/dL (2.5-4.9)
[2023-12-06 08:48] LABS: BILIRUBIN,TOTAL 0.7 mg/dL (0.2-1); TOT PROT 6.4 g/dl (6.4-8.2)
[2023-12-06] MEDS: VANCOMYCIN ORAL SOLUTION 125 MG/2.5 ML PO SCH (10:12)
[2023-12-07 09:21] LABS: BASO % 0.7 % (0-2.0); EOS % 1.8 % (0-4.5); HEMATOCRIT 41.5 % (35.4-49); HEMOGLOBIN 14.4 GM/dL (11.7-16.9); LYMPH % 18.6 % (8-40); MCH 33.2 pg (25.7-33.7); MCHC 34.7 g/dl (32.0-35.9); MEAN CELL VOLUME 95.7 fl (80-96); MEAN PLT VOLUME 8.9 fl (7.5-11.1); MONO % 8.8 % (3.8-10.2); NEUT % 70.1 % (42.8-82.8); PLATELET COUNT 265 10^3/uL (134-434); RBC 4.34 M/mm3 (4.00-5.60); RDW 12.7 % (11.9-15.9); WHITE BLOOD COUNT 8.4 K/mm3 (4.0-10.0)
[2023-12-07 09:46] LABS: POTASSIUM 3.9 mmol/L (3.5-5.1)
[2023-12-07 09:49] LABS: BLOOD UREA NITROGEN 9.8 mg/dL (7-18); CALCIUM 9.6 mg/dL (8.5-10.1)
[2023-12-07 09:50] LABS: ALBUMIN 3.3 g/dl (3.4-5.0); MAGNESIUM 2.1 mg/dL (1.8-2.4)
[2023-12-07 09:53] LABS: CREATININE 0.5 mg/dL (0.55-1.3); PHOSPHOROUS 3.4 mg/dL (2.5-4.9)
[2023-12-07 09:54] LABS: BILIRUBIN,TOTAL 0.8 mg/dL (0.2-1)
[2023-12-07 21:55] VITALS: RESP 16
[2023-12-08] MEDS ORDERED: ARTIFICIAL TEARS OPHTHALMIC DROPS OU PRN (10:25)
[2023-12-08] MEDS: ERTAPENEM SODIUM 1 GM in SODIUM CHLORIDE 50 ML IVPB SCH (11:27)
[2023-12-08 14:06] VITALS: BP 91/57; PULSE 56; TEMP 97.8
== END 2023-12-08 14:39 | disposition home or self-care (01) | DRG 463 ==
LOC: JER 13:58 → JERBED 21:15 → J4S 11-30 01:28
PROVIDERS: ADMIT Internal Medicine; ATTEND Internal Medicine
PROC: 02HV33Z Insertion of Infusion Device into Superior Vena Cava, Percutaneous Approach (ICD-10-PCS; principal; 2023-12-07)
PROC: B518ZZA Fluoroscopy of Superior Vena Cava, Guidance (ICD-10-PCS; 2023-12-07)
DX: N39.0 Urinary tract infection, site not specified (principal); I21.A1 Myocardial infarction type 2; L89.153 Pressure ulcer of sacral region, stage 3; R78.81 Bacteremia; G82.20 Paraplegia, unspecified; M21.371 Foot drop, right foot; M21.372 Foot drop, left foot; N20.0 Calculus of kidney; Z16.12 Extended spectrum beta lactamase (ESBL) resistance; A04.72 Enterocolitis due to Clostridium difficile, not specified as recurrent; K59.00 Constipation, unspecified
CPT/HCPCS: 0241U-QW; 36415; 36569; 74177-TC; 78452-TC; 80053; 80061; 81003; 82550; 82553; 82962; 83036; 83605; 83690; 83735; 83880; 84100; 84439; 84443; 84484; 85025; 85610; 85730; 86850; 86900; 86901; 87040; 87086; 87186; 87324; 87449; 87493; 93005; 93010; 93017; 93306-TC; 99285-25; A9502; E0186; J0131; J0475; J1644; J2785

== ENCOUNTER 2023-12-09 14:26 | Day surgery (SDC) | payer OTHER ==
[2023-12-09] MEDS: ERTAPENEM SODIUM 1 GM in SODIUM CHLORIDE 50 ML IVPB ONE (15:02)
[2023-12-09 16:01] VITALS: BP 101/68; PULSE 96; RESP 18; TEMP 99
== END 2023-12-09 15:40 | disposition home or self-care (01) ==
LOC: FINFUSION 14:26 → FM/S 14:27 → FINFUSION 15:40
PROVIDERS: ATTEND Internal Medicine
DX: N39.0 Urinary tract infection, site not specified (principal); R78.81 Bacteremia
CPT/HCPCS: 96365

== ENCOUNTER 2023-12-10 16:05 | Day surgery (SDC) | payer OTHER ==
[2023-12-10] MEDS: ERTAPENEM SODIUM 1 GM in SODIUM CHLORIDE 50 ML IVPB ONE (16:33)
[2023-12-10 17:16] VITALS: BP 127/62; PULSE 72; RESP 17; TEMP 97.8
== END 2023-12-10 17:20 | disposition home or self-care (01) ==
LOC: FINFUSION 16:05 → FM/S 16:06 → FINFUSION 17:20
PROVIDERS: ATTEND Internal Medicine
DX: N39.0 Urinary tract infection, site not specified (principal); R78.81 Bacteremia
CPT/HCPCS: 96365

== ENCOUNTER 2023-12-11 16:09 | Day surgery (SDC) | payer OTHER ==
[2023-12-11 16:41] VITALS: BP 126/52; PULSE 67; RESP 17; TEMP 97.8
[2023-12-11] MEDS: ERTAPENEM SODIUM 1 GM in SODIUM CHLORIDE 50 ML IVPB ONE (16:47)
== END 2023-12-11 17:53 | disposition home or self-care (01) ==
LOC: FINFUSION 16:09 → FM/S 16:10 → FINFUSION 17:53
PROVIDERS: ATTEND Internal Medicine
DX: N39.0 Urinary tract infection, site not specified (principal); R78.81 Bacteremia
CPT/HCPCS: 96365; 96366

== ENCOUNTER 2023-12-12 13:44 | Day surgery (SDC) | payer OTHER ==
[2023-12-12] MEDS: ERTAPENEM SODIUM 1 GM in SODIUM CHLORIDE 50 ML IVPB ONE (14:29)
[2023-12-12 15:02] LABS: HEMATOCRIT 45.1 % (35.4-49); HEMOGLOBIN 14.8 G/dL (11.7-16.9); MCH 32.5 pg (25.7-33.7); MCHC 32.7 g/dl (32.0-35.9); MEAN CELL VOLUME 99.3 fl (80-96); MEAN PLT VOLUME 8.8 fl (7.5-11.1); PLATELET COUNT 256.9 10^3/uL (134-434); RBC 4.54 10^6/uL (4.00-5.60); RDW 12.5 % (11.9-15.9); WHITE BLOOD COUNT 9.7 10^3/uL (4.0-10.8)
[2023-12-12 15:17] VITALS: BP 120/50; PULSE 65; RESP 18; TEMP 98
[2023-12-12 15:49] LABS: ALBUMIN 4.1 g/dl (3.4-5.0); BILIRUBIN,TOTAL 0.6 mg/dl (0.2-1); CALCIUM 9.8 mg/dl (8.5-10.1); CREATININE 0.6 mg/dl (0.6-1.3); POTASSIUM 4.1 mmol/L (3.5-5.1); TOT PROT 7.1 g/dl (6.4-8.2)
== END 2023-12-12 15:00 | disposition home or self-care (01) ==
LOC: FINFUSION 13:44 → FM/S 13:45 → FINFUSION 15:00
PROVIDERS: ATTEND Internal Medicine
DX: N39.0 Urinary tract infection, site not specified (principal); R78.81 Bacteremia
CPT/HCPCS: 36415; 80053; 85027; 96365

== ENCOUNTER 2023-12-13 15:34 | Day surgery (SDC) | payer OTHER ==
[2023-12-13] MEDS: ERTAPENEM SODIUM 1 GM in SODIUM CHLORIDE 50 ML IVPB ONE (16:00)
[2023-12-13 17:07] VITALS: BP 97/77; PULSE 68; RESP 17; TEMP 98.4
== END 2023-12-13 16:40 | disposition home or self-care (01) ==
LOC: FINFUSION 15:34 → FM/S 15:35 → FINFUSION 16:40
PROVIDERS: ATTEND Internal Medicine
DX: N39.0 Urinary tract infection, site not specified (principal); R78.81 Bacteremia
CPT/HCPCS: 96365; 96367

== ENCOUNTER 2023-12-14 17:53 | Day surgery (SDC) | payer OTHER | END 2023-12-15 17:07 | disposition home or self-care (01) | LOC: FINFUSION 17:53 → SUATTDRO 17:53 → FM/S 17:54 → FINFUSION 12-15 17:07 | PROVIDERS: ATTEND Internal Medicine Infectious Disease | PROC: 03PYX3Z Removal of Infusion Device from Upper Artery, External Approach (ICD-10-PCS; principal; 2023-12-14) | DX: Z45.2 Encounter for adjustment and management of vascular access device (principal) | CPT/HCPCS: 36589 ==

== ENCOUNTER 2024-02-06 11:25 | Inpatient (IN) | payer OTHER ==
[2024-02-06 14:09] LABS: BASO % 0.5 % (0-2.0); HEMOGLOBIN 14.1 GM/dL (11.7-16.9); LYMPH % 11.1 % (8-40); MCH 32.2 pg (25.7-33.7); MCHC 33.6 g/dl (32.0-35.9); MEAN CELL VOLUME 95.9 fl (80-96); MEAN PLT VOLUME 8.2 fl (7.5-11.1); MONO % 13.9 % (3.8-10.2); NEUT % 73.5 % (42.8-82.8); PLATELET COUNT 231 10^3/uL (134-434); RBC 4.38 M/mm3 (4.00-5.60); RDW 12.9 % (11.9-15.9); WHITE BLOOD COUNT 8.6 K/mm3 (4.0-10.0)
[2024-02-06 14:14] LABS: INR 1.1 (0.83-1.09); PROTHROMBIN TIME (PATIENT) 12.6 SEC (9.7-13.0)
[2024-02-06 14:17] LABS: ACTIVATED PTT 40.6 SECONDS (25.2-36.5)
[2024-02-06] MEDS: SODIUM CHLORIDE 0.9% 1000 ML INFUS.BAG IV STA (14:20)
[2024-02-06 14:26] LABS: POTASSIUM 3.7 mmol/L (3.5-5.1)
[2024-02-06 14:27] LABS: ALBUMIN 3.5 g/dl (3.4-5.0); BLOOD UREA NITROGEN 10.3 mg/dL (7-18); CALCIUM 9.9 mg/dL (8.5-10.1)
[2024-02-06 14:31] LABS: CREATININE 0.8 mg/dL (0.55-1.3)
[2024-02-06 14:32] LABS: BILIRUBIN,TOTAL 2.3 mg/dL (0.2-1); TOT PROT 7.7 g/dl (6.4-8.2)
[2024-02-06 17:53] LABS: EPI CELLS >36 /uL (0-25.1); HYALINE CASTS 0 /uL (0-3.1); PH,URINE >= 9.0 (5.0-8.0); URINE APPEARANCE TURBID; URINE BACTERIA >9,000 /uL (0-1359); URINE BILIRUBIN NEGATIVE (NEGATIVE); URINE COLOR YELLOW; URINE GLUCOSE (UA) NEGATIVE (NEGATIVE); URINE KETONE NEGATIVE (NEGATIVE); URINE LEUK ESTERASE 3+ (NEGATIVE); URINE NITRITE POSITIVE (NEGATIVE); URINE PROTEIN 1+ (NEGATIVE); URINE RBC 17 /uL (0-23.9); URINE WBC 73 /uL (0-25.8)
[2024-02-06 18:17] LABS: URINE CRYSTALS PRESENT /hpf
[2024-02-06] MEDS ORDERED: PATIENT'S OWN MEDICATION (NON-FORMULARY) (Midodrine Hcl [Midodrine Hcl] 10 MG Tablet) PO SCH (21:00)
[2024-02-06] MEDS ORDERED: ACETAMINOPHEN 1000 MG/100 ML BAG IVPB PRN (21:27)
[2024-02-06] MEDS: ERTAPENEM SODIUM 1 GM in SODIUM CHLORIDE 50 ML IVPB ONE (22:08)
[2024-02-06] MEDS: LACTOBACILLUS ACIDOPHILUS 1 TABLET PO SCH (22:15)
[2024-02-06 23:35] VITALS: BMI 27.8
[2024-02-07 04:22] LABS: EPI CELLS >36 /uL (0-25.1); HYALINE CASTS 8 /uL (0-3.1); URINE APPEARANCE TURBID; URINE BACTERIA >9,000 /uL (0-1359); URINE BILIRUBIN NEGATIVE (NEGATIVE); URINE COLOR YELLOW; URINE GLUCOSE (UA) NEGATIVE (NEGATIVE); URINE KETONE NEGATIVE (NEGATIVE); URINE LEUK ESTERASE 3+ (NEGATIVE); URINE NITRITE NEGATIVE (NEGATIVE); URINE PROTEIN 1+ (NEGATIVE); URINE WBC 3930 /uL (0-25.8)
[2024-02-07] MEDS: SODIUM CHLORIDE 1,000 ML IV STA (04:32)
[2024-02-07] MEDS: MIDODRINE HCL 5 MG TABLET PO ONE (04:32)
[2024-02-07] MEDS: BACLOFEN 10 MG TABLET (FP) PO SCH (06:07)
[2024-02-07] MEDS: MIDODRINE HCL 5 MG TABLET PO SCH (06:56)
[2024-02-07] MEDS: ERTAPENEM SODIUM 1 GM in SODIUM CHLORIDE 50 ML IVPB SCH (06:56)
[2024-02-07] MEDS: GABAPENTIN 400 MG CAPSULE PO SCH (09:26)
[2024-02-07] MEDS: ENOXAPARIN NA (PORCINE) 40 MG/0.4 ML DISP.SYRIN SQ SCH (09:26)
[2024-02-07] MEDS ORDERED: MIDODRINE HCL 5 MG TABLET PO SCH (10:00)
[2024-02-07 10:02] LABS: BASO % 0.5 % (0-2.0); EOS % 1.2 % (0-4.5); HEMATOCRIT 40.4 % (35.4-49); HEMOGLOBIN 13.8 GM/dL (11.7-16.9); LYMPH % 11.6 % (8-40); MCH 32.4 pg (25.7-33.7); MCHC 34.2 g/dl (32.0-35.9); MEAN CELL VOLUME 94.9 fl (80-96); MEAN PLT VOLUME 8.5 fl (7.5-11.1); MONO % 14.6 % (3.8-10.2); NEUT % 72.1 % (42.8-82.8); PLATELET COUNT 204 10^3/uL (134-434); RBC 4.26 M/mm3 (4.00-5.60); RDW 13.1 % (11.9-15.9); WHITE BLOOD COUNT 7.3 K/mm3 (4.0-10.0)
[2024-02-07 10:36] LABS: POTASSIUM 3.5 mmol/L (3.5-5.1)
[2024-02-07 10:42] LABS: ALBUMIN 3.4 g/dl (3.4-5.0); BLOOD UREA NITROGEN 10.3 mg/dL (7-18); CALCIUM 9.1 mg/dL (8.5-10.1); MAGNESIUM 2.1 mg/dL (1.8-2.4)
[2024-02-07 10:45] LABS: CREATININE 0.7 mg/dL (0.55-1.3); PHOSPHOROUS 2.9 mg/dL (2.5-4.9)
[2024-02-07 10:46] LABS: BILIRUBIN,TOTAL 1.8 mg/dL (0.2-1)
[2024-02-07 10:47] LABS: TOT PROT 7.1 g/dl (6.4-8.2)
[2024-02-07] MEDS: ONDANSETRON *ODT* 4 MG TABLET SL ONE (13:08)
[2024-02-07 14:26] LABS: BILIRUBIN,DIRECT 0.6 mg/dL (0.0-0.2)
[2024-02-07 21:16] LABS: N-TERMINAL BNP 285.6 pg/ml (5-125)
[2024-02-08] MEDS: ACETAMINOPHEN 325 MG TABLET (FP) PO ONE (07:02)
[2024-02-08 09:13] LABS: MCH 32.3 pg (25.7-33.7); MCHC 33.4 g/dl (32.0-35.9); MEAN CELL VOLUME 96.6 fl (80-96); MEAN PLT VOLUME 7.6 fl (7.5-11.1); PLATELET COUNT 197 10^3/uL (134-434); RBC 4.03 M/mm3 (4.00-5.60); WHITE BLOOD COUNT 4.6 K/mm3 (4.0-10.0)
[2024-02-08 09:31] LABS: POTASSIUM 3.6 mmol/L (3.5-5.1)
[2024-02-08 09:37] LABS: ALBUMIN 3.1 g/dl (3.4-5.0); BLOOD UREA NITROGEN 10.1 mg/dL (7-18); CALCIUM 9.5 mg/dL (8.5-10.1); MAGNESIUM 2.1 mg/dL (1.8-2.4)
[2024-02-08 09:40] LABS: BILIRUBIN,DIRECT 0.5 mg/dL (0.0-0.2); CREATININE 0.7 mg/dL (0.55-1.3); PHOSPHOROUS 3.2 mg/dL (2.5-4.9)
[2024-02-08 09:42] LABS: BILIRUBIN,TOTAL 1.8 mg/dL (0.2-1); TOT PROT 6.9 g/dl (6.4-8.2)
[2024-02-08 15:04] VITALS: RESP 18
[2024-02-08] MEDS ORDERED: oxyCODONE HCL 5 MG TABLET PO PRN (18:43)
[2024-02-08] MEDS ORDERED: DOCUSATE SODIUM 100 MG CAPSULE (FP) PO ONE (23:04)
[2024-02-09] MEDS: DOCUSATE SODIUM 100 MG CAPSULE (FP) PO ONE (01:42)
[2024-02-09 10:52] LABS: HEMOGLOBIN 14.4 GM/dL (11.7-16.9); MCH 32.4 pg (25.7-33.7); MCHC 34.2 g/dl (32.0-35.9); MEAN CELL VOLUME 94.7 fl (80-96); MEAN PLT VOLUME 8.1 fl (7.5-11.1); PLATELET COUNT 216 10^3/uL (134-434); RBC 4.44 M/mm3 (4.00-5.60); RDW 13.3 % (11.9-15.9)
[2024-02-09 11:09] LABS: POTASSIUM 3.5 mmol/L (3.5-5.1)
[2024-02-09 11:11] LABS: ALBUMIN 3.5 g/dl (3.4-5.0); CALCIUM 9.5 mg/dL (8.5-10.1)
[2024-02-09 11:12] LABS: BLOOD UREA NITROGEN 10.1 mg/dL (7-18); MAGNESIUM 2.1 mg/dL (1.8-2.4)
[2024-02-09 11:15] LABS: CREATININE 0.7 mg/dL (0.55-1.3); PHOSPHOROUS 2.9 mg/dL (2.5-4.9)
[2024-02-09 11:16] LABS: BILIRUBIN,TOTAL 1.5 mg/dL (0.2-1); TOT PROT 7.4 g/dl (6.4-8.2)
[2024-02-10 10:22] LABS: HEMOGLOBIN 13.7 GM/dL (11.7-16.9); MCH 31.9 pg (25.7-33.7); MCHC 33.3 g/dl (32.0-35.9); MEAN CELL VOLUME 95.6 fl (80-96); PLATELET COUNT 224 10^3/uL (134-434); RBC 4.28 M/mm3 (4.00-5.60); RDW 12.7 % (11.9-15.9); WHITE BLOOD COUNT 4.4 K/mm3 (4.0-10.0)
[2024-02-10 10:32] LABS: POTASSIUM 3.6 mmol/L (3.5-5.1)
[2024-02-10 10:36] LABS: ALBUMIN 3.2 g/dl (3.4-5.0); BLOOD UREA NITROGEN 8.2 mg/dL (7-18); CALCIUM 9.4 mg/dL (8.5-10.1)
[2024-02-10 10:38] LABS: BILIRUBIN,TOTAL 0.9 mg/dL (0.2-1); CREATININE 0.7 mg/dL (0.55-1.3)
[2024-02-10 10:40] LABS: PHOSPHOROUS 2.8 mg/dL (2.5-4.9)
[2024-02-10] MEDS: BISACODYL 5 MG TABLET.DR (FP) PO ONE (17:30)
[2024-02-10] MEDS: POLYETHYLENE GLYCOL (HEALTHYLAX) 3350 17 GM PACKET PO SCH (17:30)
[2024-02-10] MEDS: DOCUSATE SODIUM 100 MG CAPSULE (FP) PO SCH (22:33)
[2024-02-11 14:42] VITALS: BP 106/57; PULSE 79; TEMP 97.7
== END 2024-02-11 18:54 | disposition home or self-care (01) | DRG 463 ==
LOC: JER 11:25 → JERBED 20:49 → J6S 22:55
PROVIDERS: ADMIT Internal Medicine; ATTEND Internal Medicine
PROC: 02HV33Z Insertion of Infusion Device into Superior Vena Cava, Percutaneous Approach (ICD-10-PCS; principal; 2024-02-11)
PROC: B548ZZA Ultrasonography of Superior Vena Cava, Guidance (ICD-10-PCS; 2024-02-11)
DX: N39.0 Urinary tract infection, site not specified (principal); L89.152 Pressure ulcer of sacral region, stage 2; G82.20 Paraplegia, unspecified; I95.89 Other hypotension; N31.9 Neuromuscular dysfunction of bladder, unspecified; K56.7 Ileus, unspecified; G89.29 Other chronic pain; N20.0 Calculus of kidney; B96.89 Other specified bacterial agents as the cause of diseases classified elsewhere
CPT/HCPCS: 36415; 36569; 71045-TC-FY; 73560-TC-RT-FY; 74018-TC-FY; 80053; 80061; 80076; 81003; 82248; 83735; 83880; 84100; 84439; 84443; 84484; 85025; 85027; 85610; 85730; 86850; 86900; 86901; 87040; 87086; 87186; 93005; 93010; 99285-25; J0475; Q0162

== ENCOUNTER 2024-02-12 15:29 | Day surgery (SDC) | payer OTHER ==
[2024-02-12] MEDS: ERTAPENEM SODIUM 1 GM in SODIUM CHLORIDE 50 ML IVPB ONE (16:12)
[2024-02-12 16:55] VITALS: BP 98/70; PULSE 75; RESP 16; TEMP 98.2
== END 2024-02-12 16:57 | disposition home or self-care (01) ==
LOC: FINFUSION 15:29 → FM/S 15:30 → FINFUSION 16:57
PROVIDERS: ATTEND Internal Medicine Infectious Disease
DX: N39.0 Urinary tract infection, site not specified (principal)
CPT/HCPCS: 96365

== ENCOUNTER 2024-02-13 16:06 | Day surgery (SDC) | payer OTHER ==
[2024-02-13] MEDS: ERTAPENEM SODIUM 1 GM in SODIUM CHLORIDE 50 ML IVPB ONE (17:10)
[2024-02-13 18:01] VITALS: BP 125/66; PULSE 70; RESP 18; TEMP 98.4
== END 2024-02-13 18:01 | disposition home or self-care (01) ==
LOC: FINFUSION 16:06 → FM/S 16:07 → FINFUSION 18:01
PROVIDERS: ATTEND Internal Medicine Infectious Disease
DX: N39.0 Urinary tract infection, site not specified (principal)
CPT/HCPCS: 96365

== ENCOUNTER 2024-02-14 15:08 | Day surgery (SDC) | payer OTHER ==
[~2024-02-14 15:08] MED LIST: ERTAPENEM SODIUM 1 GM in SODIUM CHLORIDE 50 ML IVPB ONE
[2024-02-14] MEDS: ERTAPENEM SODIUM 1 GM in SODIUM CHLORIDE 50 ML IVPB ONE (15:30)
[2024-02-14 16:17] VITALS: BP 114/80; PULSE 56; RESP 19; TEMP 98.4
== END 2024-02-14 16:10 | disposition home or self-care (01) ==
LOC: FM/S 15:08 → FINFUSION 15:08
PROVIDERS: ATTEND Internal Medicine Infectious Disease
DX: N39.0 Urinary tract infection, site not specified (principal)
CPT/HCPCS: 96365

== ENCOUNTER 2024-02-15 14:44 | Day surgery (SDC) | payer OTHER ==
[2024-02-15] MEDS: ERTAPENEM SODIUM 1 GM in SODIUM CHLORIDE 50 ML IVPB ONE (15:10)
[2024-02-15 16:00] VITALS: BP 97/95; PULSE 70; RESP 16; TEMP 98.3
== END 2024-02-15 16:12 | disposition home or self-care (01) ==
LOC: FINFUSION 14:44 → FM/S 14:44 → FINFUSION 16:12
PROVIDERS: ATTEND Internal Medicine Infectious Disease
DX: N39.0 Urinary tract infection, site not specified (principal)
CPT/HCPCS: 96365

== ENCOUNTER 2024-05-12 19:20 | Inpatient (IN) | payer OTHER ==
[2024-05-12 19:23] VITALS: BMI 26.6
[2024-05-12] MEDS ORDERED: ACETAMINOPHEN INJECTION 100 ML ONE (20:05)
[2024-05-12] MEDS: ACETAMINOPHEN 1000 MG/100 ML BAG IVPB ONE (20:28)
[2024-05-12 20:36] LABS: BASO % 0.2 % (0-2.0); EOS % 0.2 % (0-4.5); HEMATOCRIT 43.5 % (35.4-49); HEMOGLOBIN 14.8 GM/dL (11.7-16.9); MCH 31.5 pg (25.7-33.7); MCHC 34.1 g/dl (32.0-35.9); MEAN CELL VOLUME 92.5 fl (80-96); MEAN PLT VOLUME 7.7 fl (7.5-11.1); MONO % 11.7 % (3.8-10.2); NEUT % 73.9 % (42.8-82.8); PLATELET COUNT 284 10^3/uL (134-434); RDW 13.5 % (11.9-15.9); WHITE BLOOD COUNT 12.3 K/mm3 (4.0-10.0)
[2024-05-12 21:21] LABS: POTASSIUM 4.2 mmol/L (3.5-5.1)
[2024-05-12 21:23] LABS: CALCIUM 10.2 mg/dL (8.5-10.1)
[2024-05-12 21:24] LABS: ALBUMIN 3.6 g/dl (3.4-5.0); BLOOD UREA NITROGEN 15.3 mg/dL (7-18); MAGNESIUM 2.2 mg/dL (1.8-2.4)
[2024-05-12 21:24] LABS: EPI CELLS 5 /uL (0-25.1); HYALINE CASTS 1 /uL (0-3.1); URINE APPEARANCE TURBID; URINE BACTERIA 7595 /uL (0-1359); URINE BILIRUBIN 1+ (NEGATIVE); URINE COLOR DK YELLOW; URINE GLUCOSE (UA) NEGATIVE (NEGATIVE); URINE KETONE NEGATIVE (NEGATIVE); URINE LEUK ESTERASE 3+ (NEGATIVE); URINE NITRITE POSITIVE (NEGATIVE); URINE PROTEIN 3+ (NEGATIVE); URINE RBC 147 /uL (0-23.9); URINE WBC 475 /uL (0-25.8)
[2024-05-12 21:27] LABS: CREATININE 0.9 mg/dL (0.55-1.3)
[2024-05-12 21:28] LABS: BILIRUBIN,TOTAL 2.3 mg/dL (0.2-1); TOT PROT 8.1 g/dl (6.4-8.2)
[2024-05-12] MEDS ORDERED: ERTAPENEM SODIUM 1 GM VIAL ONE (22:11)
[2024-05-12] MEDS: ERTAPENEM SODIUM 1 GM in SODIUM CHLORIDE 50 ML IVPB ONE (22:21)
[2024-05-12] MEDS ORDERED: ACETAMINOPHEN 1000 MG/100 ML BAG IVPB PRN (22:30)
[2024-05-12] MEDS ORDERED: BISACODYL 5 MG TABLET.DR (FP) PO PRN (23:51)
[2024-05-12] MEDS ORDERED: oxyCODONE HCL 5 MG TABLET PO PRN (23:51)
[2024-05-13] MEDS ORDERED: MIDODRINE HCL 5 MG TABLET PO PRN
[2024-05-13] MEDS: GABAPENTIN 400 MG CAPSULE PO SCH (01:04)
[2024-05-13] MEDS: BACLOFEN 10 MG TABLET (FP) PO ONE (01:04)
[2024-05-13] MEDS: MIRTAZAPINE 15 MG TABLET (FP) PO ONE (01:37)
[2024-05-13 02:29] VITALS: RESP 18
[2024-05-13] MEDS: MELATONIN 5 MG TABLETS PO ONE (03:38)
[2024-05-13] MEDS: DOCUSATE SODIUM 100 MG CAPSULE (FP) PO SCH (07:22)
[2024-05-13] MEDS: BACLOFEN 10 MG TABLET (FP) PO SCH (07:22)
[2024-05-13 08:36] LABS: BASO % 0.2 % (0-2.0); EOS % 0.6 % (0-4.5); HEMOGLOBIN 13.5 GM/dL (11.7-16.9); LYMPH % 13.1 % (8-40); MCH 31.3 pg (25.7-33.7); MEAN CELL VOLUME 94.7 fl (80-96); MEAN PLT VOLUME 7.5 fl (7.5-11.1); MONO % 10.6 % (3.8-10.2); NEUT % 75.5 % (42.8-82.8); PLATELET COUNT 227 10^3/uL (134-434); RBC 4.33 M/mm3 (4.00-5.60); RDW 13.1 % (11.9-15.9); WHITE BLOOD COUNT 8.8 K/mm3 (4.0-10.0)
[2024-05-13 08:47] LABS: POTASSIUM 3.5 mmol/L (3.5-5.1)
[2024-05-13 08:52] LABS: ALBUMIN 3.2 g/dl (3.4-5.0); CALCIUM 9.6 mg/dL (8.5-10.1)
[2024-05-13 08:53] LABS: BLOOD UREA NITROGEN 18.6 mg/dL (7-18); MAGNESIUM 2.2 mg/dL (1.8-2.4)
[2024-05-13 08:56] LABS: CREATININE 0.9 mg/dL (0.55-1.3); PHOSPHOROUS 2.6 mg/dL (2.5-4.9)
[2024-05-13 08:57] LABS: BILIRUBIN,TOTAL 2.1 mg/dL (0.2-1); TOT PROT 7.2 g/dl (6.4-8.2)
[2024-05-13] MEDS: ENOXAPARIN NA (PORCINE) 40 MG/0.4 ML DISP.SYRIN SQ SCH (10:19)
[2024-05-13] MEDS: FOLIC ACID 1 MG TABLET (FP) PO SCH (10:19)
[2024-05-13] MEDS: ERTAPENEM SODIUM 1 GM in SODIUM CHLORIDE 50 ML IVPB SCH (10:20)
[2024-05-13] MEDS: MIDODRINE HCL 5 MG TABLET PO SCH (10:20)
[2024-05-13] MEDS: POLYETHYLENE GLYCOL (HEALTHYLAX) 3350 17 GM PACKET PO SCH (10:20)
[2024-05-13] MEDS: POTASSIUM CHLORIDE TABS 10 MEQ TABLET.ER (FP) PO SCH (10:33)
[2024-05-13] MEDS: MUPIROCIN 2% TOPICAL OINTMENT 22 GM TUBE TP SCH (12:34)
[2024-05-13] MEDS ORDERED: SENNOSIDES 8.8 MG/5 ML SYRUP PO PRN (15:24)
[2024-05-13] MEDS: AMINO ACIDS/PROTEIN HYDROLYS 30 ML LIQUID.PKT PO SCH (18:12)
[2024-05-13 20:58] LABS: ALBUMIN 3.3 g/dl (3.4-5.0); BLOOD UREA NITROGEN 19.6 mg/dL (7-18); CALCIUM 9.7 mg/dL (8.5-10.1)
[2024-05-13 21:01] LABS: CREATININE 0.8 mg/dL (0.55-1.3)
[2024-05-13 21:03] LABS: TOT PROT 7.3 g/dl (6.4-8.2)
[2024-05-13 21:57] LABS: POTASSIUM 3.4 mmol/L (3.5-5.1)
[2024-05-13] MEDS: MIRTAZAPINE 15 MG TABLET (FP) PO SCH (22:27)
[2024-05-13] MEDS: LACTOBACILLUS ACIDOPHILUS 1 TABLET PO SCH (22:27)
[2024-05-14 08:54] LABS: BASO % 0.7 % (0-2.0); EOS % 1.6 % (0-4.5); HEMATOCRIT 39.8 % (35.4-49); HEMOGLOBIN 13.6 GM/dL (11.7-16.9); LYMPH % 13.5 % (8-40); MCH 31.9 pg (25.7-33.7); MCHC 34.2 g/dl (32.0-35.9); MEAN CELL VOLUME 93.2 fl (80-96); MEAN PLT VOLUME 8.1 fl (7.5-11.1); MONO % 10.5 % (3.8-10.2); NEUT % 73.7 % (42.8-82.8); PLATELET COUNT 250 10^3/uL (134-434); RBC 4.27 M/mm3 (4.00-5.60); RDW 13.3 % (11.9-15.9); WHITE BLOOD COUNT 6.6 K/mm3 (4.0-10.0)
[2024-05-14] MEDS: MULTIVITAMINS (DAILY MVI) TABLET (FP) PO SCH (10:29)
[2024-05-14] MEDS: ASCORBIC ACID 250 MG TABLET (FP) PO SCH (10:29)
[2024-05-15] MEDS: SULFAMETHOXAZOLE/TRIMETHOPRIM 800MG/160MG D.S. TABLET PO SCH (09:11)
[2024-05-15 09:39] LABS: HEMATOCRIT 39.8 % (35.4-49); HEMOGLOBIN 13.2 GM/dL (11.7-16.9); MCH 31.3 pg (25.7-33.7); MCHC 33.1 g/dl (32.0-35.9); MEAN CELL VOLUME 94.5 fl (80-96); PLATELET COUNT 292 10^3/uL (134-434); RBC 4.21 M/mm3 (4.00-5.60); WHITE BLOOD COUNT 6.5 K/mm3 (4.0-10.0)
[2024-05-15 10:03] LABS: POTASSIUM 3.5 mmol/L (3.5-5.1)
[2024-05-15 10:05] LABS: CALCIUM 9.6 mg/dL (8.5-10.1)
[2024-05-15 10:06] LABS: ALBUMIN 3.4 g/dl (3.4-5.0); BLOOD UREA NITROGEN 16.2 mg/dL (7-18)
[2024-05-15 10:09] LABS: CREATININE 0.8 mg/dL (0.55-1.3)
[2024-05-15 10:10] LABS: BILIRUBIN,TOTAL 1.2 mg/dL (0.2-1); TOT PROT 7.3 g/dl (6.4-8.2)
[2024-05-15 16:08] VITALS: BP 105/62; PULSE 65; TEMP 97.9
== END 2024-05-15 15:59 | disposition home or self-care (01) | DRG 463 ==
LOC: JER 19:20 → JERBED 22:01 → J6S 23:52
PROVIDERS: ADMIT Internal Medicine; ATTEND Student in an Organized Health Care Education/Training Program
DX: N39.0 Urinary tract infection, site not specified (principal); G82.20 Paraplegia, unspecified; I95.9 Hypotension, unspecified; L89.150 Pressure ulcer of sacral region, unstageable; N48.5 Ulcer of penis; K56.7 Ileus, unspecified; N31.9 Neuromuscular dysfunction of bladder, unspecified; R11.2 Nausea with vomiting, unspecified; G47.00 Insomnia, unspecified; D72.829 Elevated white blood cell count, unspecified; E80.6 Other disorders of bilirubin metabolism; N20.0 Calculus of kidney
CPT/HCPCS: 0241U-QW; 36415; 71045-TC-FY; 80053; 81003; 83735; 84100; 85025; 85027; 87086; 87186; 99285-25; J0131; J0475

== ENCOUNTER 2024-08-02 13:17 | Observation (INO) | payer OTHER ==
[2024-08-02] MEDS ORDERED: SODIUM CHLORIDE 0.9% 500 ML INFUS.BAG IV ONE (13:29)
[2024-08-02] MEDS: SODIUM CHLORIDE 0.9% 500 ML INFUS.BAG IV ONE (14:02)
[2024-08-02 14:05] LABS: BASO % 0.5 % (0-2.0); EOS % 0.3 % (0-4.5); HEMATOCRIT 39.2 % (35.4-49); HEMOGLOBIN 13.1 GM/dL (11.7-16.9); LYMPH % 8.9 % (8-40); MCH 30.8 pg (25.7-33.7); MCHC 33.3 g/dl (32.0-35.9); MEAN CELL VOLUME 92.4 fl (80-96); MEAN PLT VOLUME 7.2 fl (7.5-11.1); MONO % 7.8 % (3.8-10.2); NEUT % 82.5 % (42.8-82.8); PLATELET COUNT 341 10^3/uL (134-434); RBC 4.25 M/mm3 (4.00-5.60); RDW 13.6 % (11.9-15.9); WHITE BLOOD COUNT 10.3 K/mm3 (4.0-10.0)
[2024-08-02 14:12] LABS: INR 1.3 (0.83-1.09); PROTHROMBIN TIME (PATIENT) 14.2 SEC (9.7-13.0)
[2024-08-02 14:15] LABS: ACTIVATED PTT 28.3 SECONDS (25.2-36.5)
[2024-08-02 14:26] LABS: VENOUS BASE EXCESS 2.1 mmol/L (-2-2); VENOUS O2 SATURATION 88.1 % (70-80); VENOUS PCO2 41.6 mmHg (38-52); VENOUS PH 7.425 (7.310-7.410)
[2024-08-02 14:32] LABS: CHLORIDE 99 mmol/L (98-107); POTASSIUM 3.8 mmol/L (3.5-5.1); SODIUM 136 mmol/L (136-145)
[2024-08-02 14:34] LABS: BLOOD UREA NITROGEN 8.6 mg/dL (7-18); CALCIUM 9.4 mg/dL (8.5-10.1)
[2024-08-02 14:35] LABS: ANION GAP 9 mmol/L (4-13); CO2 27 mmol/L (21-32); GLUCOSE,RANDOM 93 mg/dL (74-106)
[2024-08-02 14:37] LABS: CREATININE 0.8 mg/dL (0.55-1.3)
[2024-08-02 14:38] LABS: SGOT/AST 20 U/L (15-37); SGPT/ALT 12 U/L (13-61)
[2024-08-02 14:39] LABS: BILIRUBIN,TOTAL 1.1 mg/dL (0.2-1); TOT PROT 7.5 g/dl (6.4-8.2)
[2024-08-02] MEDS ORDERED: ERTAPENEM SODIUM 1 GM VIAL ONE (14:48)
[2024-08-02] MEDS: ERTAPENEM SODIUM 1 GM in SODIUM CHLORIDE 50 ML IVPB ONE (15:19)
[2024-08-02] MEDS ORDERED: ACETAMINOPHEN INJECTION 100 ML ONE (16:09)
[2024-08-02 16:17] LABS: EPI CELLS 22 /uL (0-25.1); HYALINE CASTS 1 /uL (0-3.1); PH,URINE 8.5 (5.0-8.0); URINE APPEARANCE TURBID; URINE BACTERIA >9,000 /uL (0-1359); URINE BILIRUBIN NEGATIVE (NEGATIVE); URINE COLOR YELLOW; URINE GLUCOSE (UA) NEGATIVE (NEGATIVE); URINE KETONE TRACE (NEGATIVE); URINE LEUK ESTERASE 3+ (NEGATIVE); URINE NITRITE POSITIVE (NEGATIVE); URINE PROTEIN 2+ (NEGATIVE); URINE UROBILINOGEN 0.2 mg/dL (0.2-1.0); URINE WBC 1551 /uL (0-25.8)
[2024-08-02] MEDS: ACETAMINOPHEN 1000 MG/100 ML BAG IVPB ONE (16:18)
[2024-08-02 16:27] LABS: ALK PHOS 76 U/L (45-117)
[2024-08-02 16:37] LABS: URINE RBC 100.6 /uL (0-23.9)
[2024-08-02] MEDS ORDERED: BISACODYL 5 MG TABLET.DR (FP) PO PRN (18:30)
[2024-08-02] MEDS ORDERED: oxyCODONE HCL 5 MG TABLET PO PRN (18:30)
[2024-08-02 20:37] VITALS: BMI 23.9
[2024-08-02] MEDS: MIDODRINE HCL 5 MG TABLET PO SCH (20:57)
[2024-08-02] MEDS: GABAPENTIN 400 MG CAPSULE PO SCH (20:57)
[2024-08-02] MEDS: SODIUM CHLORIDE 0.9%/KCL 20 MEQ/1,000 ML INFUS.BAG IV SCH (20:59)
[2024-08-02] MEDS ORDERED: MIRTAZAPINE 15 MG TABLET (FP) ONE (21:24)
[2024-08-02] MEDS: BACLOFEN 10 MG TABLET (FP) PO SCH (21:28)
[2024-08-02] MEDS: DOCUSATE SODIUM 100 MG CAPSULE (FP) PO SCH (21:29)
[2024-08-02] MEDS: LACTOBACILLUS ACIDOPHILUS 1 TABLET PO SCH (21:29)
[2024-08-02] MEDS: HEPARIN NA (PORCINE) 5,000 UNITS/ML 1ML VIAL SQ SCH (21:29)
[2024-08-02] MEDS: MIRTAZAPINE 30 MG TABLET PO SCH (21:36)
[2024-08-03 08:33] LABS: HEMATOCRIT 35.1 % (35.4-49); MCH 31.3 pg (25.7-33.7); MCHC 34.1 g/dl (32.0-35.9); MEAN CELL VOLUME 91.8 fl (80-96); MEAN PLT VOLUME 7.3 fl (7.5-11.1); PLATELET COUNT 307 10^3/uL (134-434); RBC 3.82 M/mm3 (4.00-5.60); RDW 13.4 % (11.9-15.9); WHITE BLOOD COUNT 8.8 K/mm3 (4.0-10.0)
[2024-08-03 08:57] LABS: POTASSIUM 3.6 mmol/L (3.5-5.1)
[2024-08-03 09:09] LABS: CALCIUM 9.1 mg/dL (8.5-10.1)
[2024-08-03 09:10] LABS: ALBUMIN 2.8 g/dl (3.4-5.0); BLOOD UREA NITROGEN 8.2 mg/dL (7-18); MAGNESIUM 2.3 mg/dL (1.8-2.4)
[2024-08-03 09:12] LABS: CREATININE 0.7 mg/dL (0.55-1.3)
[2024-08-03 09:13] LABS: BILIRUBIN,TOTAL 0.9 mg/dL (0.2-1); PHOSPHOROUS 2.9 mg/dL (2.5-4.9)
[2024-08-03 09:14] LABS: TOT PROT 6.9 g/dl (6.4-8.2)
[2024-08-03] MEDS: POTASSIUM CHLORIDE TABS 20 MEQ TABLET.ER (FP) PO SCH (10:10)
[2024-08-03] MEDS: FOLIC ACID 1 MG TABLET (FP) PO SCH (10:10)
[2024-08-03] MEDS: POLYETHYLENE GLYCOL (HEALTHYLAX) 3350 17 GM PACKET PO SCH (10:11)
[2024-08-03] MEDS: ERTAPENEM SODIUM 1 GM in SODIUM CHLORIDE 50 ML IVPB SCH (13:11)
[2024-08-03 16:09] LABS: EPI CELLS 17 /uL (0-25.1); HYALINE CASTS 1 /uL (0-3.1); PH,URINE 7.5 (5.0-8.0); URINE APPEARANCE TURBID; URINE BACTERIA 219 /uL (0-1359); URINE BILIRUBIN NEGATIVE (NEGATIVE); URINE COLOR YELLOW; URINE GLUCOSE (UA) NEGATIVE (NEGATIVE); URINE KETONE TRACE (NEGATIVE); URINE LEUK ESTERASE 3+ (NEGATIVE); URINE NITRITE NEGATIVE (NEGATIVE); URINE PROTEIN TRACE (NEGATIVE); URINE RBC 93 /uL (0-23.9); URINE UROBILINOGEN 0.2 mg/dL (0.2-1.0); URINE WBC 1664 /uL (0-25.8)
[2024-08-03] MEDS: AMINO ACIDS/PROTEIN HYDROLYS 30 ML LIQUID.PKT PO SCH (18:02)
[2024-08-04] MEDS: MULTIVITAMINS (DAILY MVI) TABLET (FP) PO SCH (10:29)
[2024-08-04] MEDS: ASCORBIC ACID 250 MG TABLET (FP) PO SCH (10:29)
[2024-08-04] MEDS: ZINC SULFATE 220 MG CAPSULE (FP) PO SCH (10:29)
[2024-08-04 15:43] LABS: HEMATOCRIT 36.8 % (35.4-49); HEMOGLOBIN 12.5 GM/dL (11.7-16.9); MCH 31.2 pg (25.7-33.7); MCHC 33.9 g/dl (32.0-35.9); MEAN CELL VOLUME 91.8 fl (80-96); MEAN PLT VOLUME 7.1 fl (7.5-11.1); PLATELET COUNT 328 10^3/uL (134-434); RBC 4.01 M/mm3 (4.00-5.60); RDW 13.1 % (11.9-15.9); WHITE BLOOD COUNT 7.9 K/mm3 (4.0-10.0)
[2024-08-04 16:49] LABS: CALCIUM 9.3 mg/dL (8.5-10.1)
[2024-08-04 16:50] LABS: BLOOD UREA NITROGEN 8.2 mg/dL (7-18); MAGNESIUM 2.3 mg/dL (1.8-2.4)
[2024-08-04 16:53] LABS: CREATININE 0.6 mg/dL (0.55-1.3); PHOSPHOROUS 3.8 mg/dL (2.5-4.9)
[2024-08-05 13:31] LABS: ABSOLUTE IMMATURE GRANULOCYTES 0.05 x10^3/uL (0.0-0.031); BASOPHILS # 0.04 x10^3/uL (0.01-0.08); EOSINOPHIL % 1.9 % (0.8-7.0); EOSINOPHILS # 0.14 x10^3/uL (0.04-0.54); HEMATOCRIT 38.6 % (40.1-51.0); HEMOGLOBIN 12.6 g/dL (13.7-17.5); MCHC 32.6 g/dl (32.3-36.5); MEAN PLT VOLUME 9.6 fl (9.4-12.4); MONOCYTE # 0.65 x10^3/uL (0.30-0.82); PLATELET COUNT # 358 x10^3/uL (163-337); RDW 12.4 % (12.2-16.1)
[2024-08-05 13:32] LABS: POTASSIUM 3.7 mmol/L (3.5-5.1)
[2024-08-05 13:34] LABS: BLOOD UREA NITROGEN 9.3 mg/dL (7-18); CALCIUM 9.3 mg/dL (8.5-10.1)
[2024-08-05 13:35] LABS: MAGNESIUM 2.2 mg/dL (1.8-2.4)
[2024-08-05 13:38] LABS: CREATININE 0.6 mg/dL (0.55-1.3)
[2024-08-05 13:39] LABS: BILIRUBIN,TOTAL 0.6 mg/dL (0.2-1); TOT PROT 7.4 g/dl (6.4-8.2)
[2024-08-05] MEDS ORDERED: MIRTAZAPINE 15 MG TABLET (FP) ONE (22:20)
[2024-08-06 09:18] LABS: ABSOLUTE IMMATURE GRANULOCYTES 0.04 x10^3/uL (0.0-0.031); BASOPHILS # 0.04 x10^3/uL (0.01-0.08); EOSINOPHIL % 2.9 % (0.8-7.0); EOSINOPHILS # 0.18 x10^3/uL (0.04-0.54); HEMATOCRIT 35.9 % (40.1-51.0); HEMOGLOBIN 11.8 g/dL (13.7-17.5); MCHC 32.9 g/dl (32.3-36.5); MEAN CELL VOLUME 93.5 fl (79.0-92.2); MEAN PLT VOLUME 9.1 fl (9.4-12.4); MONOCYTE # 0.47 x10^3/uL (0.30-0.82); MONOCYTE % 7.5 % (5.3-12.2); PLATELET COUNT # 328 x10^3/uL (163-337); RDW 12.6 % (12.2-16.1)
[2024-08-06 09:31] LABS: POTASSIUM 3.7 mmol/L (3.5-5.1)
[2024-08-06 09:33] LABS: CALCIUM 9.2 mg/dL (8.5-10.1)
[2024-08-06 09:34] LABS: ALBUMIN 2.8 g/dl (3.4-5.0); BLOOD UREA NITROGEN 10.4 mg/dL (7-18)
[2024-08-06 09:36] LABS: CREATININE 0.8 mg/dL (0.55-1.3)
[2024-08-06 09:38] LABS: BILIRUBIN,TOTAL 0.7 mg/dL (0.2-1)
[2024-08-06 15:52] VITALS: RESP 18
[2024-08-07] MEDS: ALBUTEROL SO4 2.5/IPRATROPIUM 0.5 INH SOL 3 ML VIAL.NEB. NEB ONE (02:20)
[2024-08-07] MEDS: MIDODRINE HCL 5 MG TABLET PO ONE ×2 (07:11→09:21)
[2024-08-07 07:37] VITALS: TEMP 98.1
[2024-08-07 08:35] LABS: ABSOLUTE IMMATURE GRANULOCYTES 0.05 x10^3/uL (0.0-0.031); BASOPHILS # 0.04 x10^3/uL (0.01-0.08); EOSINOPHIL % 1.4 % (0.8-7.0); EOSINOPHILS # 0.14 x10^3/uL (0.04-0.54); HEMATOCRIT 36.2 % (40.1-51.0); HEMOGLOBIN 11.8 g/dL (13.7-17.5); MCHC 32.6 g/dl (32.3-36.5); MEAN CELL VOLUME 93.5 fl (79.0-92.2); MEAN PLT VOLUME 9.1 fl (9.4-12.4); MONOCYTE # 0.65 x10^3/uL (0.30-0.82); MONOCYTE % 6.6 % (5.3-12.2); PLATELET COUNT # 342 x10^3/uL (163-337); RDW 12.8 % (12.2-16.1)
[2024-08-07 08:57] LABS: POTASSIUM 3.6 mmol/L (3.5-5.1)
[2024-08-07 09:07] LABS: BLOOD UREA NITROGEN 11.9 mg/dL (7-18)
[2024-08-07 09:08] LABS: CALCIUM 9.4 mg/dL (8.5-10.1); MAGNESIUM 2.1 mg/dL (1.8-2.4)
[2024-08-07 09:09] LABS: ALBUMIN 2.8 g/dl (3.4-5.0)
[2024-08-07 09:12] LABS: BILIRUBIN,TOTAL 0.5 mg/dL (0.2-1); CREATININE 0.8 mg/dL (0.55-1.3)
[2024-08-07 09:13] LABS: TOT PROT 6.8 g/dl (6.4-8.2)
[2024-08-07] MEDS: SODIUM CHLORIDE 500 ML IV STA (09:22)
[2024-08-07 11:53] VITALS: BP 91/59; PULSE 78
[2024-08-07] MEDS: GABAPENTIN 400 MG CAPSULE PO SCH (12:16)
== END 2024-08-07 14:10 | disposition home or self-care (01) ==
LOC: JER 13:17 → UNDOADMOB 16:39 → JERBED 16:39 → INTOOBSV 16:39 → JERBED 18:52 → J8W 19:17
PROVIDERS: ADMIT Student in an Organized Health Care Education/Training Program; ATTEND Nurse Practitioner Acute Care
PROC: 3E03329 Introduction of Other Anti-infective into Peripheral Vein, Percutaneous Approach (ICD-10-PCS; principal; 2024-08-02)
PROC: 3E033NZ Introduction of Analgesics, Hypnotics, Sedatives into Peripheral Vein, Percutaneous Approach (ICD-10-PCS; 2024-08-02)
PROC: 3E0F7GC Introduction of Other Therapeutic Substance into Respiratory Tract, Via Natural or Artificial Opening (ICD-10-PCS; 2024-08-02)
PROC: 3E0337Z Introduction of Electrolytic and Water Balance Substance into Peripheral Vein, Percutaneous Approach (ICD-10-PCS; 2024-08-02)
DX: L89.109 Pressure ulcer of unspecified part of back, unspecified stage (principal); S24.103S Unspecified injury at T7-T10 level of thoracic spinal cord, sequela; K59.09 Other constipation; E03.9 Hypothyroidism, unspecified; N31.9 Neuromuscular dysfunction of bladder, unspecified; E46 Unspecified protein-calorie malnutrition; Z68.23 Body mass index [BMI] 23.0-23.9, adult; Z87.440 Personal history of urinary (tract) infections; Z16.12 Extended spectrum beta lactamase (ESBL) resistance
CPT/HCPCS: 0241U-QW; 36415; 71045-TC-FY; 80048; 80053; 81003; 82803; 83605; 83735; 84100; 84484; 85025; 85027; 85610; 85730; 86850; 86900; 86901; 87040; 87086; 93005; 93010; 94640; 96361; 96365; 96375; 99291; G0378; J0131; J0475; J1644

== ENCOUNTER 2024-08-14 20:28 | Inpatient (IN) | payer OTHER ==
[2024-08-14] MEDS ORDERED: FAMOTIDINE 20 MG/50 ML IVPB 20 MG/50 ML MG IVPB ONE (22:03)
[2024-08-14] MEDS ORDERED: ACETAMINOPHEN INJECTION 100 ML ONE (22:03)
[2024-08-14 22:05] LABS: ABSOLUTE IMMATURE GRANULOCYTES 0.09 x10^3/uL (0.0-0.031); BASOPHILS # 0.02 x10^3/uL (0.01-0.08); EOSINOPHIL % 0.2 % (0.8-7.0); EOSINOPHILS # 0.03 x10^3/uL (0.04-0.54); HEMATOCRIT 39.1 % (40.1-51.0); HEMOGLOBIN 12.5 g/dL (13.7-17.5); MEAN CELL VOLUME 93.8 fl (79.0-92.2); MEAN PLT VOLUME 9.9 fl (9.4-12.4); MONOCYTE % 3.8 % (5.3-12.2); PLATELET COUNT 514 x10^3/uL (163-337); RDW 13.2 % (12.2-16.1)
[2024-08-14 22:07] LABS: VENOUS BASE EXCESS 1.7 mmol/L (-2-2); VENOUS O2 SATURATION 40.4 % (70-80); VENOUS PCO2 45.1 mmHg (38-52); VENOUS PH 7.396 (7.310-7.410)
[2024-08-14] MEDS: SODIUM CHLORIDE 1,000 ML IV STA (22:10)
[2024-08-14] MEDS: ACETAMINOPHEN 1000 MG/100 ML BAG IVPB ONE (22:10)
[2024-08-14] MEDS: FAMOTIDINE 20 MG/50 ML IVPB 20 MG/50 ML MG IVPB ONE (22:12)
[2024-08-14 22:34] LABS: POTASSIUM 4.8 mmol/L (3.5-5.1)
[2024-08-14 22:37] LABS: ALBUMIN 3.3 g/dl (3.4-5.0); MAGNESIUM 3.5 mg/dL (1.8-2.4)
[2024-08-14 22:39] LABS: CREATININE 1.2 mg/dL (0.55-1.3)
[2024-08-14] MEDS ORDERED: PIPERACILLIN/TAZOB 3.375 GM 3.375 GM/50 ML BAG IVPB ONE (22:57)
[2024-08-14] MEDS ORDERED: ONDANSETRON 4 MG/2 ML VIAL ONE (23:14)
[2024-08-14] MEDS: ONDANSETRON 4 MG/2 ML VIAL IVPUSH ONE (23:51)
[2024-08-14] MEDS: PIPERACILLIN/TAZOB 3.375 GM 3.375 GM in DEXTROSE 5%-WATER - 50 ML IVPB ONE (23:51)
[2024-08-15 00:18] LABS: EPI CELLS >36 /uL (0-25.1); HYALINE CASTS 942 /uL (0-3.1); URINE APPEARANCE TURBID; URINE BACTERIA 430 /uL (0-1359); URINE BILIRUBIN NEGATIVE (NEGATIVE); URINE COLOR DK YELLOW; URINE GLUCOSE (UA) NEGATIVE (NEGATIVE); URINE KETONE TRACE (NEGATIVE); URINE LEUK ESTERASE 3+ (NEGATIVE); URINE NITRITE NEGATIVE (NEGATIVE); URINE PROTEIN 2+ (NEGATIVE); URINE WBC 25897 /uL (0-25.8)
[2024-08-15 03:34] LABS: URINE RBC 170.2 /uL (0-23.9); YEAST MODERATE (NEGATIVE)
[2024-08-15] MEDS: SODIUM CHLORIDE 1,000 ML IV SCH (05:15)
[2024-08-15] MEDS ORDERED: oxyCODONE HCL 5 MG TABLET PO PRN (05:34)
[2024-08-15] MEDS ORDERED: ERTAPENEM SODIUM 1 GM in SODIUM CHLORIDE 50 ML IVPB ONE (06:00)
[2024-08-15] MEDS ORDERED: BACLOFEN 10 MG TABLET (FP) ONE (06:21)
[2024-08-15] MEDS ORDERED: GABAPENTIN 400 MG CAPSULE ONE (06:21)
[2024-08-15] MEDS ORDERED: DOCUSATE SODIUM 100 MG CAPSULE (FP) PO ONE (06:21)
[2024-08-15] MEDS: DOCUSATE SODIUM 100 MG CAPSULE (FP) PO SCH (06:24)
[2024-08-15] MEDS: GABAPENTIN 400 MG CAPSULE PO SCH (06:24)
[2024-08-15] MEDS: BACLOFEN 10 MG TABLET (FP) PO SCH (06:24)
[2024-08-15] MEDS ORDERED: ERTAPENEM SODIUM 1 GM VIAL ONE (10:10)
[2024-08-15] MEDS ORDERED: POLYETHYLENE GLYCOL (HEALTHYLAX) 3350 17 GM PACKET ONE (10:10)
[2024-08-15] MEDS: ERTAPENEM SODIUM 1 GM in SODIUM CHLORIDE 50 ML IVPB SCH (10:25)
[2024-08-15] MEDS: POLYETHYLENE GLYCOL (HEALTHYLAX) 3350 17 GM PACKET PO SCH (10:25)
[2024-08-15 11:13] LABS: ABSOLUTE IMMATURE GRANULOCYTES 0.07 x10^3/uL (0.0-0.031); BASOPHILS # 0.05 x10^3/uL (0.01-0.08); EOSINOPHIL % 0.9 % (0.8-7.0); EOSINOPHILS # 0.12 x10^3/uL (0.04-0.54); HEMATOCRIT 40.3 % (40.1-51.0); HEMOGLOBIN 12.8 g/dL (13.7-17.5); MCHC 31.8 g/dl (32.3-36.5); MEAN CELL VOLUME 94.2 fl (79.0-92.2); MEAN PLT VOLUME 9.2 fl (9.4-12.4); MONOCYTE # 0.54 x10^3/uL (0.30-0.82); PLATELET COUNT 416 x10^3/uL (163-337); RDW 13.2 % (12.2-16.1)
[2024-08-15 11:21] LABS: INR 1.2 (0.83-1.09); PROTHROMBIN TIME (PATIENT) 13.2 SEC (9.7-13.0)
[2024-08-15 11:23] LABS: ACTIVATED PTT 33.3 SECONDS (25.2-36.5)
[2024-08-15 11:46] LABS: POTASSIUM 4.4 mmol/L (3.5-5.1)
[2024-08-15 11:54] LABS: BLOOD UREA NITROGEN 12.6 mg/dL (7-18)
[2024-08-15 11:55] LABS: ALBUMIN 2.9 g/dl (3.4-5.0); CALCIUM 9.1 mg/dL (8.5-10.1)
[2024-08-15 11:56] LABS: MAGNESIUM 2.9 mg/dL (1.8-2.4)
[2024-08-15 11:59] LABS: PHOSPHOROUS 3.7 mg/dL (2.5-4.9)
[2024-08-15 12:00] LABS: BILIRUBIN,TOTAL 0.7 mg/dL (0.2-1); TOT PROT 7.5 g/dl (6.4-8.2)
[2024-08-15] MEDS: LACTOBACILLUS ACIDOPHILUS 1 TABLET PO SCH (22:15)
[2024-08-15] MEDS: TRIMETHOBENZAMIDE HCL 200MG/2ML INJ IM PRN (22:35)
[2024-08-16 09:20] LABS: HEMATOCRIT 32.9 % (40.1-51.0); HEMOGLOBIN 10.5 g/dL (13.7-17.5); MCHC 31.9 g/dl (32.3-36.5); MEAN CELL VOLUME 94.3 fl (79.0-92.2); MEAN PLT VOLUME 9.5 fl (9.4-12.4); PLATELET COUNT 363 x10^3/uL (163-337); RDW 13.2 % (12.2-16.1)
[2024-08-16 09:40] LABS: POTASSIUM 3.9 mmol/L (3.5-5.1)
[2024-08-16 09:47] LABS: ALBUMIN 2.5 g/dl (3.4-5.0); BLOOD UREA NITROGEN 9.7 mg/dL (7-18)
[2024-08-16 09:50] LABS: BILIRUBIN,TOTAL 0.7 mg/dL (0.2-1); CREATININE 0.8 mg/dL (0.55-1.3); TOT PROT 6.4 g/dl (6.4-8.2)
[2024-08-16] MEDS: MIDODRINE HCL 5 MG TABLET PO SCH (14:39)
[2024-08-16] MEDS: SODIUM CHLORIDE 500 ML IV STA (14:41)
[2024-08-16 15:04] VITALS: BMI 24.0
[2024-08-16] MEDS: AMINO ACIDS/PROTEIN HYDROLYS 30 ML LIQUID.PKT PO SCH (17:38)
[2024-08-16] MEDS: HEPARIN NA (PORCINE) 5,000 UNITS/ML 1ML VIAL SQ SCH (21:45)
[2024-08-17] MEDS: SODIUM CHLORIDE 500 ML IV STA (04:14)
[2024-08-17 07:42] LABS: HEMATOCRIT 32.9 % (40.1-51.0); HEMOGLOBIN 10.4 g/dL (13.7-17.5); MCHC 31.6 g/dl (32.3-36.5); MEAN CELL VOLUME 93.5 fl (79.0-92.2); MEAN PLT VOLUME 9.3 fl (9.4-12.4); PLATELET COUNT 404 x10^3/uL (163-337); RDW 13.2 % (12.2-16.1)
[2024-08-17 08:01] LABS: POTASSIUM 3.3 mmol/L (3.5-5.1)
[2024-08-17 08:08] LABS: ALBUMIN 2.5 g/dl (3.4-5.0); BLOOD UREA NITROGEN 6.2 mg/dL (7-18); CALCIUM 8.9 mg/dL (8.5-10.1)
[2024-08-17 08:11] LABS: CREATININE 0.8 mg/dL (0.55-1.3)
[2024-08-17 08:12] LABS: BILIRUBIN,TOTAL 0.9 mg/dL (0.2-1); TOT PROT 6.6 g/dl (6.4-8.2)
[2024-08-17] MEDS: MULTIVITAMINS (DAILY MVI) TABLET (FP) PO SCH (09:31)
[2024-08-18] MEDS: ACETAMINOPHEN 1000 MG/100 ML BAG IVPB PRN (03:09)
[2024-08-18 07:51] LABS: HEMATOCRIT 29.9 % (40.1-51.0); HEMOGLOBIN 9.6 g/dL (13.7-17.5); MCHC 32.1 g/dl (32.3-36.5); MEAN CELL VOLUME 92.3 fl (79.0-92.2); MEAN PLT VOLUME 8.9 fl (9.4-12.4); PLATELET COUNT 344 x10^3/uL (163-337); RDW 13.5 % (12.2-16.1)
[2024-08-18 08:16] LABS: CALCIUM 8.5 mg/dL (8.5-10.1)
[2024-08-18 08:17] LABS: ALBUMIN 2.2 g/dl (3.4-5.0); BLOOD UREA NITROGEN 6.1 mg/dL (7-18)
[2024-08-18 08:20] LABS: CREATININE 0.8 mg/dL (0.55-1.3)
[2024-08-18 08:22] LABS: BILIRUBIN,TOTAL 0.9 mg/dL (0.2-1)
[2024-08-18] MEDS: POTASSIUM CHLORIDE ORAL LIQUID 20 MEQ/15 ML PO ONE (08:36)
[2024-08-18] MEDS: POTASSIUM CHLORIDE TABS 20 MEQ TABLET.ER (FP) PO SCH (22:31)
[2024-08-19 06:54] VITALS: PULSE 87; TEMP 98.2
[2024-08-19 08:20] LABS: HEMATOCRIT 31.3 % (40.1-51.0); MCHC 31.9 g/dl (32.3-36.5); MEAN CELL VOLUME 93.7 fl (79.0-92.2); MEAN PLT VOLUME 9.6 fl (9.4-12.4); PLATELET COUNT 400 x10^3/uL (163-337); RDW 13.5 % (12.2-16.1)
[2024-08-19 08:40] LABS: POTASSIUM 3.4 mmol/L (3.5-5.1)
[2024-08-19 08:42] LABS: CALCIUM 8.8 mg/dL (8.5-10.1)
[2024-08-19 08:43] LABS: ALBUMIN 2.4 g/dl (3.4-5.0); BLOOD UREA NITROGEN 5.9 mg/dL (7-18); MAGNESIUM 1.8 mg/dL (1.8-2.4)
[2024-08-19 08:46] LABS: CREATININE 0.9 mg/dL (0.55-1.3)
[2024-08-19 08:47] LABS: BILIRUBIN,TOTAL 0.7 mg/dL (0.2-1)
[2024-08-19 08:48] LABS: TOT PROT 6.4 g/dl (6.4-8.2)
[2024-08-19 09:25] VITALS: BP 98/67; RESP 20
[2024-08-19] MEDS: POTASSIUM CHLORIDE TABS 20 MEQ TABLET.ER (FP) PO SCH (10:29)
== END 2024-08-19 13:11 | disposition home health service (06) | DRG 465 ==
LOC: JER 20:28 → JERBED 08-15 04:03 → J8W 08-15 14:31
PROVIDERS: ADMIT Internal Medicine; ATTEND Nurse Practitioner Acute Care
DX: N13.2 Hydronephrosis with renal and ureteral calculous obstruction (principal); N31.9 Neuromuscular dysfunction of bladder, unspecified; G82.20 Paraplegia, unspecified; N39.0 Urinary tract infection, site not specified; K59.09 Other constipation; L89.150 Pressure ulcer of sacral region, unstageable; E83.41 Hypermagnesemia; D72.829 Elevated white blood cell count, unspecified; D75.839 Thrombocytosis, unspecified
CPT/HCPCS: 0241U-QW; 36415; 71045-TC-FY; 74177-TC; 76705-TC; 76775-TC; 80053; 81003; 82803; 83605; 83690; 83735; 84100; 84484; 85025; 85027; 85610; 85730; 87040; 87070; 87077; 87086; 87186; 87205; 93005; 93010; 99285-25; J0131; J0475; J1644; Q9967

== ENCOUNTER 2024-08-28 01:08 | Inpatient (IN) | payer OTHER ==
[2024-08-28] MEDS ORDERED: ACETAMINOPHEN INJECTION 100 ML ONE (02:10)
[2024-08-28] MEDS ORDERED: MAG HYDROX/AL HYDROX/SIMETH 30 ML UNIT-DOSE CUP ONE (02:10)
[2024-08-28] MEDS ORDERED: ONDANSETRON 4 MG/2 ML VIAL ONE ×2 (02:11→08:05)
[2024-08-28] MEDS ORDERED: FAMOTIDINE 20 MG/50 ML IVPB 20 MG/50 ML MG IVPB ONE (02:11)
[2024-08-28] MEDS: ACETAMINOPHEN 1000 MG/100 ML BAG IVPB ONE (02:29)
[2024-08-28] MEDS: FAMOTIDINE 20 MG/50 ML IVPB 20 MG/50 ML MG IVPB ONE (02:29)
[2024-08-28] MEDS: MAG HYDROX/AL HYDROX/SIMETH 30 ML UNIT-DOSE CUP PO ONE (02:29)
[2024-08-28] MEDS: ONDANSETRON 4 MG/2 ML VIAL IVPB ONE (02:29)
[2024-08-28 02:32] LABS: HEMATOCRIT 35.8 % (40.1-51.0); HEMOGLOBIN 11.5 g/dL (13.7-17.5); MCHC 32.1 g/dl (32.3-36.5); MEAN CELL VOLUME 92.7 fl (79.0-92.2); MEAN PLT VOLUME 10.4 fl (9.4-12.4); PLATELET COUNT 503 x10^3/uL (163-337); RDW 14.4 % (12.2-16.1)
[2024-08-28 02:42] LABS: INR 1.21 (0.83-1.09); PROTHROMBIN TIME (PATIENT) 13.3 SEC (9.7-13.0)
[2024-08-28 03:13] LABS: CALCIUM 9.2 mg/dL (8.5-10.1); MAGNESIUM 2.2 mg/dL (1.8-2.4)
[2024-08-28 03:15] LABS: ALBUMIN 3.1 g/dl (3.4-5.0)
[2024-08-28 03:18] LABS: BILIRUBIN,TOTAL 1.2 mg/dL (0.2-1)
[2024-08-28 03:22] LABS: TOT PROT 8.6 g/dl (6.4-8.2)
[2024-08-28 03:42] LABS: EPI CELLS 6 /uL (0-25.1); HYALINE CASTS 1 /uL (0-3.1); PH,URINE 5.5 (5.0-8.0); URINE APPEARANCE CLOUDY; URINE BACTERIA 641 /uL (0-1359); URINE BILIRUBIN NEGATIVE (NEGATIVE); URINE COLOR YELLOW; URINE GLUCOSE (UA) NEGATIVE (NEGATIVE); URINE KETONE NEGATIVE (NEGATIVE); URINE LEUK ESTERASE 3+ (NEGATIVE); URINE NITRITE NEGATIVE (NEGATIVE); URINE PROTEIN 1+ (NEGATIVE); URINE RBC 20 /uL (0-23.9); URINE UROBILINOGEN 0.2 mg/dL (0.2-1.0); URINE WBC 1689 /uL (0-25.8)
[2024-08-28 03:57] LABS: YEAST NONE SEEN (NEGATIVE)
[2024-08-28] MEDS: SODIUM CHLORIDE 0.9% 500 ML INFUS.BAG IV ONE (04:33)
[2024-08-28] MEDS ORDERED: MEROPENEM 500 MG VIAL (RESTRICTED TO ID) IVPB ONE (05:22)
[2024-08-28] MEDS: MEROPENEM 500 MG in DEXTROSE 5%-WATER 100 ML IVPB ONE (05:32)
[2024-08-28] MEDS ORDERED: VANCOMYCIN 1 GM PREMIX (F) 1 GM/200 ML BAG ONE (05:52)
[2024-08-28] MEDS: VANCOMYCIN 1,000 MG in DEXTROSE 5%-WATER - 250 ML IVPB ONE (06:01)
[2024-08-28] MEDS ORDERED: ONDANSETRON 4 MG/2 ML VIAL IVPUSH PRN (06:49)
[2024-08-28] MEDS ORDERED: MORPHINE SULFATE 2 MG/ML SYRINGE IVPUSH PRN (07:00)
[2024-08-28] MEDS: SODIUM CHLORIDE 1,000 ML IV SCH ×2 (08:12→12:26)
[2024-08-28] MEDS: ONDANSETRON 4 MG/2 ML VIAL IVPUSH PRN (08:12)
[2024-08-28] MEDS ORDERED: ERTAPENEM SODIUM 1 GM VIAL ONE (11:22)
[2024-08-28] MEDS: ERTAPENEM SODIUM 1 GM in SODIUM CHLORIDE 50 ML IVPB SCH (11:30)
[2024-08-28] MEDS: LACTATED RINGERS SOLUTION 1,000 ML/1,000 ML INFUS.BAG IV SCH (12:25)
[2024-08-28] MEDS: MEROPENEM 1 GM in DEXTROSE 5%-WATER 100 ML IVPB SCH (12:38)
[2024-08-28] MEDS ORDERED: HEPARIN NA (PORCINE) 5,000 UNITS/ML 1ML VIAL ONE (14:15)
[2024-08-28] MEDS: HEPARIN NA (PORCINE) 5,000 UNITS/ML 1ML VIAL SQ SCH (14:21)
[2024-08-28] MEDS ORDERED: ACETAMINOPHEN 1000 MG/100 ML BAG IVPB PRN (14:22)
[2024-08-28] MEDS: POTASSIUM CHLORIDE 10 MEQ in DEXTROSE 5%-NORMAL SALINE 1,000 ML IVPB SCH (15:24)
[2024-08-28 18:06] VITALS: BMI 23.9
[2024-08-28 18:07] LABS: POTASSIUM 3.8 mmol/L (3.5-5.1)
[2024-08-28 18:08] LABS: BLOOD UREA NITROGEN 12.4 mg/dL (7-18); CALCIUM 8.9 mg/dL (8.5-10.1)
[2024-08-28 18:12] LABS: CREATININE 0.8 mg/dL (0.55-1.3)
[2024-08-29] MEDS: BACLOFEN 10 MG TABLET (FP) PO ONE (00:46)
[2024-08-29] MEDS: ALBUTEROL SO4 2.5/IPRATROPIUM 0.5 INH SOL 3 ML VIAL.NEB. NEB PRN (06:17)
[2024-08-29 08:15] LABS: HEMATOCRIT 31.3 % (40.1-51.0); HEMOGLOBIN 9.6 g/dL (13.7-17.5); MCHC 30.7 g/dl (32.3-36.5); MEAN CELL VOLUME 96.9 fl (79.0-92.2); MEAN PLT VOLUME 9.7 fl (9.4-12.4); PLATELET COUNT 391 x10^3/uL (163-337); RDW 14.5 % (12.2-16.1)
[2024-08-29 08:31] LABS: POTASSIUM 3.3 mmol/L (3.5-5.1)
[2024-08-29 08:37] LABS: ALBUMIN 2.8 g/dl (3.4-5.0); BLOOD UREA NITROGEN 12.3 mg/dL (7-18); MAGNESIUM 2.4 mg/dL (1.8-2.4)
[2024-08-29 08:40] LABS: CREATININE 0.8 mg/dL (0.55-1.3)
[2024-08-29 08:41] LABS: BILIRUBIN,TOTAL 0.5 mg/dL (0.2-1)
[2024-08-29] MEDS ORDERED: PIPERACILLIN/TAZOB 3.375 GM 3.375 GM in DEXTROSE 5%-WATER - 50 ML IVPB SCH (10:00)
[2024-08-29] MEDS ORDERED: MEROPENEM 1 GM in DEXTROSE 5%-WATER 100 ML IVPB SCH (10:00)
[2024-08-29] MEDS: PIPERACILLIN/TAZOB 3.375 GM 3.375 GM in DEXTROSE 5%-WATER - 50 ML IVPB SCH (11:23)
[2024-08-29] MEDS: POTASSIUM CHLORIDE ORAL LIQUID 20 MEQ/15 ML PO ONE (13:44)
[2024-08-29] MEDS ORDERED: BISACODYL 5 MG TABLET.DR (FP) PO PRN (16:01)
[2024-08-29] MEDS ORDERED: PATIENT'S OWN MEDICATION (NON-FORMULARY) (Hydroxyzine Hcl [Hydroxyzine Hcl] 25 MG Tablet) PO PRN (16:15)
[2024-08-29] MEDS ORDERED: ACETAMINOPHEN 500 MG TABLET (FP) PO PRN (17:01)
[2024-08-29] MEDS: AMINO ACIDS/PROTEIN HYDROLYS 30 ML LIQUID.PKT PO SCH (17:28)
[2024-08-29] MEDS: GABAPENTIN 400 MG CAPSULE PO SCH (17:28)
[2024-08-29] MEDS: MIDODRINE HCL 5 MG TABLET PO SCH (21:31)
[2024-08-29] MEDS: DOCUSATE SODIUM 100 MG CAPSULE (FP) PO SCH (21:31)
[2024-08-29] MEDS: BACLOFEN 10 MG TABLET (FP) PO SCH (21:31)
[2024-08-29] MEDS: LACTOBACILLUS ACIDOPHILUS 1 TABLET PO SCH (21:31)
[2024-08-30 08:43] LABS: ABSOLUTE IMMATURE GRANULOCYTES 0.05 x10^3/uL (0.0-0.031); BASOPHILS # 0.05 x10^3/uL (0.01-0.08); EOSINOPHIL % 4.4 % (0.8-7.0); EOSINOPHILS # 0.52 x10^3/uL (0.04-0.54); HEMATOCRIT 31.6 % (40.1-51.0); HEMOGLOBIN 9.7 g/dL (13.7-17.5); MCHC 30.7 g/dl (32.3-36.5); MEAN CELL VOLUME 97.5 fl (79.0-92.2); MEAN PLT VOLUME 10.4 fl (9.4-12.4); MONOCYTE % 5.9 % (5.3-12.2); PLATELET COUNT 338 x10^3/uL (163-337); RDW 14.6 % (12.2-16.1)
[2024-08-30 08:52] LABS: POTASSIUM 3.9 mmol/L (3.5-5.1)
[2024-08-30 08:56] LABS: ALBUMIN 2.5 g/dl (3.4-5.0); BLOOD UREA NITROGEN 10.6 mg/dL (7-18); CALCIUM 8.9 mg/dL (8.5-10.1)
[2024-08-30 08:57] LABS: MAGNESIUM 2.2 mg/dL (1.8-2.4)
[2024-08-30 08:59] LABS: CREATININE 0.9 mg/dL (0.55-1.3)
[2024-08-30 09:01] LABS: BILIRUBIN,TOTAL 0.6 mg/dL (0.2-1); TOT PROT 6.6 g/dl (6.4-8.2)
[2024-08-30] MEDS: FOLIC ACID 1 MG TABLET (FP) PO SCH (09:19)
[2024-08-30] MEDS: MULTIVITAMINS (DAILY MVI) TABLET (FP) PO SCH (09:19)
[2024-08-30] MEDS: POLYETHYLENE GLYCOL (HEALTHYLAX) 3350 17 GM PACKET PO SCH (09:19)
[2024-08-30] MEDS: ZINC SULFATE 220 MG CAPSULE (FP) PO SCH (09:19)
[2024-08-30] MEDS: MAGNESIUM OXIDE 400 MG TABLET (FP) PO SCH (09:19)
[2024-08-30] MEDS: ASCORBIC ACID 250 MG TABLET (FP) PO SCH (09:20)
[2024-08-30] MEDS: POTASSIUM CHLORIDE ORAL LIQUID 20 MEQ/15 ML PO SCH (09:21)
[2024-08-31 08:10] LABS: ABSOLUTE IMMATURE GRANULOCYTES 0.05 x10^3/uL (0.0-0.031); BASOPHILS # 0.04 x10^3/uL (0.01-0.08); EOSINOPHIL % 5.7 % (0.8-7.0); EOSINOPHILS # 0.58 x10^3/uL (0.04-0.54); HEMATOCRIT 31.7 % (40.1-51.0); HEMOGLOBIN 9.6 g/dL (13.7-17.5); MCHC 30.3 g/dl (32.3-36.5); MEAN CELL VOLUME 97.5 fl (79.0-92.2); MEAN PLT VOLUME 9.4 fl (9.4-12.4); MONOCYTE # 0.72 x10^3/uL (0.30-0.82); MONOCYTE % 7.1 % (5.3-12.2); PLATELET COUNT 390 x10^3/uL (163-337); RDW 14.3 % (12.2-16.1)
[2024-08-31] MEDS: AMOX TR/POT CLAV 875MG/125MG TABLETS (FP) PO SCH (08:17)
[2024-08-31 08:24] LABS: POTASSIUM 3.6 mmol/L (3.5-5.1)
[2024-08-31 08:30] LABS: CALCIUM 9.7 mg/dL (8.5-10.1)
[2024-08-31 08:31] LABS: BLOOD UREA NITROGEN 8.9 mg/dL (7-18)
[2024-08-31 08:34] LABS: CREATININE 0.9 mg/dL (0.55-1.3)
[2024-08-31 12:29] VITALS: RESP 18
[2024-09-01 03:22] VITALS: TEMP 98.4
[2024-09-01] MEDS: FAMOTIDINE 20 MG TABLET PO SCH (10:21)
[2024-09-01] MEDS ORDERED: hydrOXYzine PAMOATE 25 MG CAPSULE (FP) PO PRN (11:18)
[2024-09-01 16:25] VITALS: BP 110/74; PULSE 92
== END 2024-09-01 13:55 | disposition home or self-care (01) | DRG 247 ==
LOC: JER 01:08 → JERBED 05:21 → J6S 17:32
PROVIDERS: ADMIT Hospitalist; ATTEND Internal Medicine
PROC: 0D9670Z Drainage of Stomach with Drainage Device, Via Natural or Artificial Opening (ICD-10-PCS; principal; 2024-08-28)
DX: K56.609 Unspecified intestinal obstruction, unspecified as to partial versus complete obstruction (principal); N31.9 Neuromuscular dysfunction of bladder, unspecified; G82.20 Paraplegia, unspecified; N39.0 Urinary tract infection, site not specified; J69.0 Pneumonitis due to inhalation of food and vomit; N13.30 Unspecified hydronephrosis; N20.0 Calculus of kidney; F41.9 Anxiety disorder, unspecified
CPT/HCPCS: 36415; 71045-TC-FY; 74018-TC-FY; 74177-TC; 80048; 80053; 81003; 83605; 83690; 83735; 84100; 84484; 85025; 85027; 85610; 85730; 87077; 87086; 93005; 93010; 94640; 99285-25; E0186; J0131; J0475; J1644

== ENCOUNTER 2024-09-17 17:48 | Inpatient (IN) | payer OTHER ==
[2024-09-17 18:30] VITALS: BMI 24.0
[2024-09-17] MEDS: ACETAMINOPHEN 1000 MG/100 ML BAG IVPB ONE (18:50)
[2024-09-17] MEDS: LACTATED RINGERS SOLUTION 1000 ML INFUS.BAG IV ONE ×2 (18:50→22:06)
[2024-09-17] MEDS: ONDANSETRON 4 MG/2 ML VIAL IVPUSH ONE (18:51)
[2024-09-17 19:01] LABS: ABSOLUTE IMMATURE GRANULOCYTES 0.04 x10^3/uL (0.0-0.031); BASOPHILS # 0.03 x10^3/uL (0.01-0.08); EOSINOPHIL % 1.2 % (0.8-7.0); EOSINOPHILS # 0.14 x10^3/uL (0.04-0.54); HEMATOCRIT 38.5 % (40.1-51.0); MCHC 31.2 g/dl (32.3-36.5); MEAN CELL VOLUME 94.1 fl (79.0-92.2); MEAN PLT VOLUME 9.6 fl (9.4-12.4); MONOCYTE # 0.76 x10^3/uL (0.30-0.82); MONOCYTE % 6.7 % (5.3-12.2); PLATELET COUNT 561 x10^3/uL (163-337); RDW 14.8 % (12.2-16.1)
[2024-09-17] MEDS: FAMOTIDINE 20 MG/50 ML IVPB 20 MG/50 ML MG IVPB ONE (19:07)
[2024-09-17 19:17] LABS: POTASSIUM 4.3 mmol/L (3.5-5.1)
[2024-09-17 19:19] LABS: MAGNESIUM 2.4 mg/dL (1.8-2.4)
[2024-09-17 19:22] LABS: ALBUMIN 3.4 g/dl (3.4-5.0); CALCIUM 10.7 mg/dL (8.5-10.1)
[2024-09-17 19:23] LABS: BLOOD UREA NITROGEN 13.5 mg/dL (7-18)
[2024-09-17 19:26] LABS: CREATININE 1.1 mg/dL (0.55-1.3)
[2024-09-17 19:27] LABS: BILIRUBIN,TOTAL 0.8 mg/dL (0.2-1)
[2024-09-17] MEDS ORDERED: PIPERACILLIN/TAZOB 4.5 GM 4.5 GM/100 ML BAG IVPB ONE (19:27)
[2024-09-17 19:31] LABS: LACTIC ACID 2.2 mmol/L (0.4-2.0)
[2024-09-17] MEDS: PIPERACILLIN/TAZOB 4.5 GM 4.5 GM in DEXTROSE 5%-WATER 100 ML IVPB ONE (19:40)
[2024-09-17] MEDS ORDERED: LIDOCAINE HCL 2% JELLY 11 ML TP ONE (19:53)
[2024-09-17 22:37] LABS: VENOUS BASE EXCESS 6.3 mmol/L (-2-2); VENOUS O2 SATURATION 87.1 % (70-80); VENOUS PCO2 46.5 mmHg (38-52); VENOUS PH 7.445 (7.310-7.410)
[2024-09-18] MEDS: SODIUM CHLORIDE 1,000 ML IV SCH (00:54)
[2024-09-18] MEDS ORDERED: ACETAMINOPHEN 1000 MG/100 ML BAG IVPB PRN (01:08)
[2024-09-18] MEDS: MINERAL OIL ENEMA 133 ML ENEMA RC ONE ×2 (01:40→05:37)
[2024-09-18 01:56] LABS: EPI CELLS >36 /uL (0-25.1); HYALINE CASTS 27 /uL (0-3.1); URINE APPEARANCE TURBID; URINE BACTERIA >9,000 /uL (0-1359); URINE BILIRUBIN NEGATIVE (NEGATIVE); URINE COLOR DK YELLOW; URINE GLUCOSE (UA) NEGATIVE (NEGATIVE); URINE KETONE TRACE (NEGATIVE); URINE LEUK ESTERASE 3+ (NEGATIVE); URINE NITRITE NEGATIVE (NEGATIVE); URINE PROTEIN 2+ (NEGATIVE); URINE WBC 14577 /uL (0-25.8)
[2024-09-18 03:08] LABS: URINE RBC 211.8 /uL (0-23.9)
[2024-09-18 03:18] LABS: URINE CRYSTALS PRESENT /hpf; YEAST PRESENT (NEGATIVE)
[2024-09-18 06:48] LABS: ABSOLUTE IMMATURE GRANULOCYTES 0.03 x10^3/uL (0.0-0.031); BASOPHILS # 0.04 x10^3/uL (0.01-0.08); EOSINOPHIL % 2.1 % (0.8-7.0); EOSINOPHILS # 0.22 x10^3/uL (0.04-0.54); HEMATOCRIT 32.3 % (40.1-51.0); MEAN CELL VOLUME 93.9 fl (79.0-92.2); MEAN PLT VOLUME 9.5 fl (9.4-12.4); MONOCYTE % 7.8 % (5.3-12.2); PLATELET COUNT 387 x10^3/uL (163-337); RDW 14.5 % (12.2-16.1)
[2024-09-18 07:08] LABS: POTASSIUM 4.2 mmol/L (3.5-5.1)
[2024-09-18 07:17] LABS: CALCIUM 9.2 mg/dL (8.5-10.1)
[2024-09-18 07:18] LABS: BLOOD UREA NITROGEN 13.3 mg/dL (7-18); MAGNESIUM 2.3 mg/dL (1.8-2.4)
[2024-09-18 07:21] LABS: CREATININE 0.9 mg/dL (0.55-1.3); PHOSPHOROUS 3.6 mg/dL (2.5-4.9)
[2024-09-18 07:22] LABS: BILIRUBIN,TOTAL 0.7 mg/dL (0.2-1)
[2024-09-18 07:32] LABS: ALBUMIN 2.7 g/dl (3.4-5.0)
[2024-09-18] MEDS: MEROPENEM 1 GM in DEXTROSE 5%-WATER 100 ML IVPB SCH (10:00)
[2024-09-18] MEDS: ENOXAPARIN NA (PORCINE) 40 MG/0.4 ML DISP.SYRIN SQ SCH (12:00)
[2024-09-19] MEDS: ALBUTEROL SO4 2.5/IPRATROPIUM 0.5 INH SOL 3 ML VIAL.NEB. NEB ONE (02:19)
[2024-09-19 06:32] LABS: HEMATOCRIT 34.9 % (40.1-51.0); HEMOGLOBIN 10.5 g/dL (13.7-17.5); MCHC 30.1 g/dl (32.3-36.5); MEAN CELL VOLUME 94.6 fl (79.0-92.2); MEAN PLT VOLUME 9.6 fl (9.4-12.4); PLATELET COUNT 413 x10^3/uL (163-337); RDW 14.6 % (12.2-16.1)
[2024-09-19 06:44] LABS: POTASSIUM 3.9 mmol/L (3.5-5.1)
[2024-09-19 06:46] LABS: ALBUMIN 2.6 g/dl (3.4-5.0); MAGNESIUM 2.3 mg/dL (1.8-2.4)
[2024-09-19 06:47] LABS: BLOOD UREA NITROGEN 12.9 mg/dL (7-18)
[2024-09-19 06:48] LABS: CALCIUM 9.5 mg/dL (8.5-10.1)
[2024-09-19 06:50] LABS: CREATININE 0.8 mg/dL (0.55-1.3); PHOSPHOROUS 3.3 mg/dL (2.5-4.9)
[2024-09-19 06:51] LABS: BILIRUBIN,TOTAL 0.7 mg/dL (0.2-1); TOT PROT 7.1 g/dl (6.4-8.2)
[2024-09-19] MEDS: PANTOPRAZOLE SODIUM 40 MG VIAL IVPUSH SCH (09:59)
[2024-09-19] MEDS: IOHEXOL (OMNIPAQUE IV) 350 MG/ML - 100 ML BOTTLE PO ONE (10:00)
[2024-09-19] MEDS ORDERED: ALBUTEROL SO4 2.5/IPRATROPIUM 0.5 INH SOL 3 ML VIAL.NEB. NEB ONE (12:59)
[2024-09-19] MEDS: ALBUTEROL SO4 2.5/IPRATROPIUM 0.5 INH SOL 3 ML VIAL.NEB. NEB PRN (13:02)
[2024-09-19] MEDS: POTASSIUM CHLORIDE 10 MEQ in AMINO ACIDS 4.25%/D5W 1,000 ML IV SCH (14:54)
[2024-09-19] MEDS: SODIUM CHLORIDE 1,000 ML IV SCH (18:08)
[2024-09-19] MEDS: SODIUM CHLORIDE 500 ML IV STA (18:08)
[2024-09-19] MEDS: ACETAMINOPHEN 1000 MG/100 ML BAG IVPB ONE (21:03)
[2024-09-20] MEDS: KETOROLAC TROMETHAMINE 15 MG/ML VIAL IVPUSH ONE (03:27)
[2024-09-20] MEDS: LIDOCAINE 4% PATCH TP ONE (03:27)
[2024-09-20 07:05] LABS: HEMATOCRIT 33.8 % (40.1-51.0); HEMOGLOBIN 10.1 g/dL (13.7-17.5); MCHC 29.9 g/dl (32.3-36.5); MEAN CELL VOLUME 94.9 fl (79.0-92.2); MEAN PLT VOLUME 9.4 fl (9.4-12.4); PLATELET COUNT 410 x10^3/uL (163-337); RDW 14.6 % (12.2-16.1)
[2024-09-20 07:23] LABS: POTASSIUM 3.6 mmol/L (3.5-5.1)
[2024-09-20 07:25] LABS: ALBUMIN 2.6 g/dl (3.4-5.0); BLOOD UREA NITROGEN 17.4 mg/dL (7-18); CALCIUM 9.4 mg/dL (8.5-10.1); MAGNESIUM 2.3 mg/dL (1.8-2.4)
[2024-09-20 07:28] LABS: CREATININE 0.9 mg/dL (0.55-1.3); PHOSPHOROUS 2.5 mg/dL (2.5-4.9)
[2024-09-20 07:30] LABS: BILIRUBIN,TOTAL 1.1 mg/dL (0.2-1); TOT PROT 7.1 g/dl (6.4-8.2)
[2024-09-20] MEDS: MIDODRINE HCL 5 MG TABLET PO SCH (11:39)
[2024-09-20] MEDS: FUROSEMIDE 40 MG/4 ML INJECTABLE VIAL IVPUSH ONE (18:02)
[2024-09-20] MEDS: ACETAMINOPHEN 1000 MG/100 ML BAG IVPB PRN (20:31)
[2024-09-20] MEDS: LACTATED RINGERS SOLUTION 1,000 ML/1,000 ML INFUS.BAG IV SCH (20:35)
[2024-09-20] MEDS: LIDOCAINE PATCH REMOVAL MC SCH (23:35)
[2024-09-20] MEDS: ONDANSETRON 4 MG/2 ML VIAL IVPUSH PRN (23:45)
[2024-09-21] MEDS ORDERED: FUROSEMIDE 40 MG/4 ML INJECTABLE VIAL IVPUSH ONE ×2 (06:00→14:00)
[2024-09-21 07:11] LABS: ABSOLUTE IMMATURE GRANULOCYTES 0.12 x10^3/uL (0.0-0.031); BASOPHILS # 0.05 x10^3/uL (0.01-0.08); EOSINOPHIL % 0.8 % (0.8-7.0); EOSINOPHILS # 0.11 x10^3/uL (0.04-0.54); HEMATOCRIT 35.2 % (40.1-51.0); HEMOGLOBIN 10.4 g/dL (13.7-17.5); MCHC 29.5 g/dl (32.3-36.5); MEAN CELL VOLUME 94.6 fl (79.0-92.2); MEAN PLT VOLUME 9.9 fl (9.4-12.4); MONOCYTE # 0.82 x10^3/uL (0.30-0.82); MONOCYTE % 5.7 % (5.3-12.2); PLATELET COUNT 427 x10^3/uL (163-337); RDW 14.5 % (12.2-16.1)
[2024-09-21 07:32] LABS: POTASSIUM 3.3 mmol/L (3.5-5.1)
[2024-09-21 07:40] LABS: ALBUMIN 2.7 g/dl (3.4-5.0)
[2024-09-21 07:41] LABS: CALCIUM 9.8 mg/dL (8.5-10.1)
[2024-09-21 07:42] LABS: MAGNESIUM 2.3 mg/dL (1.8-2.4)
[2024-09-21 07:43] LABS: BLOOD UREA NITROGEN 16.7 mg/dL (7-18); CREATININE 0.7 mg/dL (0.55-1.3); PHOSPHOROUS 2.7 mg/dL (2.5-4.9)
[2024-09-21 07:48] LABS: TOT PROT 7.5 g/dl (6.4-8.2)
[2024-09-21] MEDS: FUROSEMIDE 40 MG/4 ML INJECTABLE VIAL IVPUSH ONE (11:06)
[2024-09-21] MEDS: ACETYLCYSTEINE 20% 200MG/ML 4 ML VIAL *FOR ORAL / INH USE ONLY NEB SCH (11:35)
[2024-09-21 11:39] LABS: ARTERIAL BLD GAS O2 SATURATION 99.3 % (95-98); ARTERIAL BLOOD GAS PO2 179.9 mmHg (80-100); ARTERIAL BLOOD GAS pH 7.452 (7.350-7.450)
[2024-09-21 11:40] LABS: ALLENS TEST POSITIVE
[2024-09-21] MEDS: POTASSIUM CHLORIDE ORAL LIQUID 20 MEQ/15 ML PO ONE ×3 (11:42→21:17)
[2024-09-21] MEDS ORDERED: POTASSIUM CHLORIDE ORAL LIQUID 20 MEQ/15 ML PO ONE (13:00)
[2024-09-21] MEDS: FUROSEMIDE 40 MG/4 ML INJECTABLE VIAL IVPUSH SCH (13:29)
[2024-09-21] MEDS: BACLOFEN 10 MG TABLET (FP) PO SCH (13:29)
[2024-09-22 06:38] LABS: ABSOLUTE IMMATURE GRANULOCYTES 0.16 x10^3/uL (0.0-0.031); BASOPHILS # 0.04 x10^3/uL (0.01-0.08); EOSINOPHIL % 3.1 % (0.8-7.0); EOSINOPHILS # 0.32 x10^3/uL (0.04-0.54); HEMATOCRIT 33.1 % (40.1-51.0); HEMOGLOBIN 10.1 g/dL (13.7-17.5); MCHC 30.5 g/dl (32.3-36.5); MEAN PLT VOLUME 9.6 fl (9.4-12.4); MONOCYTE # 0.94 x10^3/uL (0.30-0.82); MONOCYTE % 9.1 % (5.3-12.2); PLATELET COUNT 448 x10^3/uL (163-337); RDW 14.7 % (12.2-16.1)
[2024-09-22 06:48] LABS: POTASSIUM 3.5 mmol/L (3.5-5.1)
[2024-09-22 06:51] LABS: CALCIUM 9.5 mg/dL (8.5-10.1)
[2024-09-22 06:52] LABS: ALBUMIN 2.5 g/dl (3.4-5.0); BLOOD UREA NITROGEN 11.7 mg/dL (7-18); MAGNESIUM 1.9 mg/dL (1.8-2.4)
[2024-09-22 06:55] LABS: CREATININE 0.8 mg/dL (0.55-1.3); PHOSPHOROUS 2.7 mg/dL (2.5-4.9)
[2024-09-22 06:56] LABS: BILIRUBIN,TOTAL 0.6 mg/dL (0.2-1); TOT PROT 7.2 g/dl (6.4-8.2)
[2024-09-22] MEDS ORDERED: FUROSEMIDE 40 MG/4 ML INJECTABLE VIAL IVPUSH SCH (10:00)
[2024-09-22] MEDS ORDERED: dilTIAZem HCL 25 MG/5 ML - 5 ML VIAL ONE (16:50)
[2024-09-22] MEDS ORDERED: dilTIAZem HCL 125 MG/25 ML - 25 ML VIAL ONE (16:50)
[2024-09-22] MEDS ORDERED: dilTIAZem HCL 50 MG/10 ML - 10 ML VIAL ONE (16:50)
[2024-09-22] MEDS ORDERED: AMIODARONE IN DEXTROSE,ISO-OSM 150 MG/100 ML BAG ONE (17:05)
[2024-09-22] MEDS: MAGNESIUM 2GM/50ML STERILE WATER IVPB IVPB ONE (17:05)
[2024-09-22] MEDS ORDERED: AMIODARONE IN DEXTROSE,ISO-OSM 360 MG/200 ML BAG ONE (17:06)
[2024-09-22] MEDS: DIGOXIN 0.5 MG/2 ML AMPUL IVPUSH ONE (17:15)
[2024-09-22] MEDS: POTASSIUM CHLORIDE ORAL LIQUID 20 MEQ/15 ML PO ONE (17:20)
[2024-09-22] MEDS: AMIODARONE IN DEXTROSE,ISO-OSM 150 MG/100 ML BAG IVPB ONE (17:30)
[2024-09-22] MEDS: AMIODARONE IN DEXTROSE,ISO-OSM 360 MG/200 ML BAG IV SCH (17:40)
[2024-09-22] MEDS: SODIUM CHLORIDE 250 ML IV STA (18:39)
[2024-09-22] MEDS: KCL 10 MEQ IVPB 10 MEQ/100 ML INFUS.BAG IVPB SCH (18:40)
[2024-09-22] MEDS: MIDODRINE HCL 5 MG TABLET PO SCH (18:59)
[2024-09-22 19:02] LABS: BASOPHILS # 0.06 x10^3/uL (0.01-0.08); EOSINOPHIL % 2.7 % (0.8-7.0); HEMATOCRIT 38.1 % (40.1-51.0); HEMOGLOBIN 11.3 g/dL (13.7-17.5); MCHC 29.7 g/dl (32.3-36.5); MEAN CELL VOLUME 94.5 fl (79.0-92.2); MEAN PLT VOLUME 9.9 fl (9.4-12.4); MONOCYTE % 6.2 % (5.3-12.2); PLATELET COUNT 536 x10^3/uL (163-337); RDW 14.4 % (12.2-16.1)
[2024-09-22 19:03] LABS: INR 1.09 (0.83-1.09); PROTHROMBIN TIME (PATIENT) 11.9 SEC (9.7-13.0)
[2024-09-22 19:06] LABS: ACTIVATED PTT 35.9 SECONDS (25.2-36.5)
[2024-09-22 19:17] LABS: POTASSIUM 3.7 mmol/L (3.5-5.1)
[2024-09-22 19:21] LABS: ALBUMIN 2.9 g/dl (3.4-5.0); CALCIUM 10.2 mg/dL (8.5-10.1)
[2024-09-22 19:22] LABS: MAGNESIUM 2.3 mg/dL (1.8-2.4)
[2024-09-22 19:24] LABS: PHOSPHOROUS 3.2 mg/dL (2.5-4.9)
[2024-09-22 19:25] LABS: TOT PROT 8.2 g/dl (6.4-8.2)
[2024-09-22 19:32] LABS: BILIRUBIN,TOTAL 0.7 mg/dL (0.2-1)
[2024-09-22 19:36] LABS: LACTIC ACID 3.9 mmol/L (0.4-2.0)
[2024-09-22] MEDS: MUPIROCIN 2% TOPICAL OINTMENT FOR DECOLONIZATION NS SCH (21:20)
[2024-09-22] MEDS: CHLORHEXIDINE GLUCONATE 4% CLEANSER FOR DECOLONIZATION TP SCH (21:20)
[2024-09-23] MEDS: AMIODARONE IN DEXTROSE,ISO-OSM 360 MG/200 ML BAG IV SCH
[2024-09-23 06:21] LABS: HEMATOCRIT 34.2 % (40.1-51.0); HEMOGLOBIN 10.5 g/dL (13.7-17.5); MCHC 30.7 g/dl (32.3-36.5); MEAN CELL VOLUME 92.7 fl (79.0-92.2); MEAN PLT VOLUME 9.4 fl (9.4-12.4); PLATELET COUNT 454 x10^3/uL (163-337); RDW 14.6 % (12.2-16.1)
[2024-09-23 06:46] LABS: POTASSIUM 4.2 mmol/L (3.5-5.1)
[2024-09-23 06:56] LABS: CALCIUM 9.7 mg/dL (8.5-10.1)
[2024-09-23 06:57] LABS: ALBUMIN 2.6 g/dl (3.4-5.0); BLOOD UREA NITROGEN 9.9 mg/dL (7-18); MAGNESIUM 2.2 mg/dL (1.8-2.4)
[2024-09-23 07:00] LABS: CREATININE 0.7 mg/dL (0.55-1.3); PHOSPHOROUS 2.9 mg/dL (2.5-4.9)
[2024-09-23 07:01] LABS: BILIRUBIN,TOTAL 0.5 mg/dL (0.2-1); TOT PROT 7.2 g/dl (6.4-8.2)
[2024-09-23 14:12] LABS: N-TERMINAL BNP 885.1 pg/ml (5-125)
[2024-09-23] MEDS: ACETYLCYSTEINE 20% 200MG/ML 4 ML VIAL *FOR ORAL / INH USE ONLY NEB SCH (14:58)
[2024-09-23] MEDS: LEVALBUTEROL HCL 0.31 MG/3 ML VIAL.NEB IH SCH (14:59)
[2024-09-23] MEDS: POTASSIUM CHLORIDE TABS 20 MEQ TABLET.ER (FP) PO ONE (18:42)
[2024-09-23] MEDS: MAGNESIUM OXIDE 400 MG TABLET (FP) PO ONE (18:42)
[2024-09-23] MEDS: AMIODARONE HCL 200 MG TABLET PO SCH (18:43)
[2024-09-24 06:33] LABS: ABSOLUTE IMMATURE GRANULOCYTES 0.21 x10^3/uL (0.0-0.031); BASOPHILS # 0.05 x10^3/uL (0.01-0.08); EOSINOPHIL % 3.2 % (0.8-7.0); EOSINOPHILS # 0.29 x10^3/uL (0.04-0.54); HEMATOCRIT 36.2 % (40.1-51.0); HEMOGLOBIN 11.3 g/dL (13.7-17.5); MCHC 31.2 g/dl (32.3-36.5); MEAN CELL VOLUME 91.2 fl (79.0-92.2); MEAN PLT VOLUME 10.3 fl (9.4-12.4); MONOCYTE # 0.76 x10^3/uL (0.30-0.82); MONOCYTE % 8.4 % (5.3-12.2); PLATELET COUNT 394 x10^3/uL (163-337); RDW 14.4 % (12.2-16.1)
[2024-09-24 07:03] LABS: CHLORIDE 91 mmol/L (98-107); SODIUM 128 mmol/L (136-145)
[2024-09-24 07:05] LABS: ALBUMIN 2.5 g/dl (3.4-5.0); BLOOD UREA NITROGEN 10.6 mg/dL (7-18); CALCIUM 9.5 mg/dL (8.5-10.1); CO2 28 mmol/L (21-32); MAGNESIUM 1.9 mg/dL (1.8-2.4)
[2024-09-24 07:06] LABS: GLUCOSE,RANDOM 176 mg/dL (74-106)
[2024-09-24 07:08] LABS: SGPT/ALT 14 U/L (13-61)
[2024-09-24 07:09] LABS: CREATININE 0.8 mg/dL (0.55-1.3); SGOT/AST 72 U/L (15-37)
[2024-09-24 07:10] LABS: BILIRUBIN,TOTAL 0.9 mg/dL (0.2-1); TOT PROT 7.8 g/dl (6.4-8.2)
[2024-09-24 07:11] LABS: ALK PHOS 98 U/L (45-117)
[2024-09-24 07:13] LABS: ANION GAP 10 mmol/L (4-13)
[2024-09-25 07:37] LABS: ALBUMIN 2.7 g/dl (3.4-5.0); BILIRUBIN,TOTAL 0.9 mg/dL (0.2-1); BLOOD UREA NITROGEN 10.7 mg/dL (7-18); CALCIUM 9.7 mg/dL (8.5-10.1); CREATININE 0.8 mg/dL (0.55-1.3); MAGNESIUM 1.7 mg/dL (1.8-2.4); POTASSIUM 4.7 mmol/L (3.5-5.1); TOT PROT 7.8 g/dl (6.4-8.2)
[2024-09-25 11:00] LABS: ABSOLUTE IMMATURE GRANULOCYTES 0.28 x10^3/uL (0.0-0.031); BASOPHILS # 0.07 x10^3/uL (0.01-0.08); EOSINOPHIL % 3.1 % (0.8-7.0); EOSINOPHILS # 0.35 x10^3/uL (0.04-0.54); HEMATOCRIT 35.1 % (40.1-51.0); HEMOGLOBIN 10.8 g/dL (13.7-17.5); MCHC 30.8 g/dl (32.3-36.5); MEAN CELL VOLUME 91.6 fl (79.0-92.2); MONOCYTE # 1.07 x10^3/uL (0.30-0.82); MONOCYTE % 9.6 % (5.3-12.2); PLATELET COUNT 427 x10^3/uL (163-337); RDW 14.5 % (12.2-16.1)
[2024-09-25] MEDS: MAGNESIUM SULF 50% (8.12 MEQ/2 ML-1 GM VIAL) IVPB ONE (12:04)
[2024-09-26 08:53] LABS: ABSOLUTE IMMATURE GRANULOCYTES 0.22 x10^3/uL (0.0-0.031); BASOPHILS # 0.06 x10^3/uL (0.01-0.08); HEMATOCRIT 36.8 % (40.1-51.0); HEMOGLOBIN 11.4 g/dL (13.7-17.5); MEAN CELL VOLUME 92.2 fl (79.0-92.2); MEAN PLT VOLUME 9.5 fl (9.4-12.4); MONOCYTE # 0.72 x10^3/uL (0.30-0.82); MONOCYTE % 7.3 % (5.3-12.2); PLATELET COUNT 466 x10^3/uL (163-337); RDW 14.6 % (12.2-16.1)
[2024-09-26 09:48] LABS: POTASSIUM 3.7 mmol/L (3.5-5.1)
[2024-09-26 10:17] LABS: ALBUMIN 2.9 g/dl (3.4-5.0); BLOOD UREA NITROGEN 11.5 mg/dL (7-18); CALCIUM 10.1 mg/dL (8.5-10.1); MAGNESIUM 2.4 mg/dL (1.8-2.4); TOT PROT 8.4 g/dl (6.4-8.2)
[2024-09-26 10:19] LABS: BILIRUBIN,TOTAL 0.7 mg/dL (0.2-1)
[2024-09-27] MEDS: FUROSEMIDE 40 MG TABLET (FP) PO SCH (10:06)
[2024-09-27 10:12] LABS: ABSOLUTE IMMATURE GRANULOCYTES 0.24 x10^3/uL (0.0-0.031); BASOPHILS # 0.05 x10^3/uL (0.01-0.08); EOSINOPHIL % 1.2 % (0.8-7.0); EOSINOPHILS # 0.16 x10^3/uL (0.04-0.54); HEMATOCRIT 36.6 % (40.1-51.0); HEMOGLOBIN 11.2 g/dL (13.7-17.5); MCHC 30.6 g/dl (32.3-36.5); MEAN PLT VOLUME 9.8 fl (9.4-12.4); MONOCYTE # 0.86 x10^3/uL (0.30-0.82); MONOCYTE % 6.5 % (5.3-12.2); PLATELET COUNT 559 x10^3/uL (163-337); RDW 14.6 % (12.2-16.1)
[2024-09-27 10:42] LABS: POTASSIUM 3.6 mmol/L (3.5-5.1)
[2024-09-27 10:49] LABS: BLOOD UREA NITROGEN 12.1 mg/dL (7-18); CALCIUM 10.5 mg/dL (8.5-10.1); MAGNESIUM 2.2 mg/dL (1.8-2.4)
[2024-09-27 10:53] LABS: TOT PROT 8.5 g/dl (6.4-8.2)
[2024-09-27 10:54] LABS: BILIRUBIN,TOTAL 0.6 mg/dL (0.2-1)
[2024-09-27] MEDS: ENOXAPARIN NA (PORCINE) 40 MG/0.4 ML DISP.SYRIN SQ SCH (19:20)
[2024-09-28] MEDS ORDERED: TRIMETHOBENZAMIDE HCL 200MG/2ML INJ IM PRN (08:00)
[2024-09-28] MEDS ORDERED: ONDANSETRON 4 MG/2 ML VIAL IVPUSH ONE ×2 (08:13→09:30)
[2024-09-28 09:01] LABS: ABSOLUTE IMMATURE GRANULOCYTES 0.16 x10^3/uL (0.0-0.031); BASOPHILS # 0.06 x10^3/uL (0.01-0.08); EOSINOPHIL % 0.8 % (0.8-7.0); EOSINOPHILS # 0.08 x10^3/uL (0.04-0.54); HEMATOCRIT 38.6 % (40.1-51.0); HEMOGLOBIN 11.7 g/dL (13.7-17.5); MCHC 30.3 g/dl (32.3-36.5); MEAN CELL VOLUME 90.6 fl (79.0-92.2); MEAN PLT VOLUME 10.7 fl (9.4-12.4); MONOCYTE # 0.64 x10^3/uL (0.30-0.82); PLATELET COUNT 413 x10^3/uL (163-337); RDW 14.6 % (12.2-16.1)
[2024-09-28] MEDS: DEXAMETHASONE SOD PHOSPHATE 4 MG/1 ML VIAL IM ONE (09:36)
[2024-09-28] MEDS: AMIODARONE HCL 200 MG TABLET PO SCH (09:36)
[2024-09-28 09:43] LABS: ALBUMIN 3.2 g/dl (3.4-5.0); BLOOD UREA NITROGEN 15.1 mg/dL (7-18); MAGNESIUM 2.1 mg/dL (1.8-2.4)
[2024-09-28 09:46] LABS: CREATININE 1.1 mg/dL (0.55-1.3)
[2024-09-28 09:48] LABS: BILIRUBIN,TOTAL 0.7 mg/dL (0.2-1); TOT PROT 8.6 g/dl (6.4-8.2)
[2024-09-28] MEDS: MIDODRINE HCL 5 MG TABLET PO SCH (13:35)
[2024-09-28] MEDS ORDERED: oxyCODONE HCL 5 MG TABLET PO PRN (18:09)
[2024-09-28] MEDS: TRIMETHOBENZAMIDE HCL 200MG/2ML INJ IM ONE (23:30)
[2024-09-29] MEDS: DEXAMETHASONE SOD PHOSPHATE 4 MG/1 ML VIAL IM ONE (00:42)
[2024-09-29] MEDS: BISACODYL 10 MG SUPP.RECT PR ONE (00:43)
[2024-09-29] MEDS ORDERED: NOREPINEPHRINE 0.9 % NACL 8 MG/250 ML BAG IVPB SCH (03:00)
[2024-09-29] MEDS: ONDANSETRON 4 MG/2 ML VIAL IVPUSH ONE ×2 (03:20→08:09)
[2024-09-29 07:28] LABS: CHLORIDE 84 mmol/L (98-107); SODIUM 123 mmol/L (136-145)
[2024-09-29 07:30] LABS: BLOOD UREA NITROGEN 21.5 mg/dL (7-18); CO2 34 mmol/L (21-32); GLUCOSE,RANDOM 102 mg/dL (74-106)
[2024-09-29 07:33] LABS: CREATININE 1.5 mg/dL (0.55-1.3)
[2024-09-29 07:42] LABS: ANION GAP 6 mmol/L (4-13); CALCIUM 11.7 mg/dL (8.5-10.1); POTASSIUM 8.8 mmol/L (3.5-5.1)
[2024-09-29] MEDS: MELATONIN 5 MG TABLETS PO ONE (08:08)
[2024-09-29] MEDS: TRIMETHOBENZAMIDE HCL 200MG/2ML INJ IM ONE ×2 (08:08→08:09)
[2024-09-29] MEDS: METOCLOPRAMIDE HCL INJECTION 10 MG/2 ML VIAL IVPUSH ONE (08:09)
[2024-09-29] MEDS ORDERED: METOPROLOL TARTRATE 5 MG/5 ML VIAL IVPUSH PRN (10:52)
[2024-09-29] MEDS: ACETAMINOPHEN 1000 MG/100 ML BAG IVPB ONE ×2 (11:13→20:54)
[2024-09-29] MEDS: LIDOCAINE 5% TOPICAL PATCH TP SCH (11:14)
[2024-09-29] MEDS: AMINO ACIDS 4.25%/D5W 1,000 ML IV SCH (11:14)
[2024-09-29 11:36] LABS: HEMATOCRIT 41.2 % (40.1-51.0); HEMOGLOBIN 12.8 g/dL (13.7-17.5); MCHC 31.1 g/dl (32.3-36.5); MEAN CELL VOLUME 90.5 fl (79.0-92.2); MEAN PLT VOLUME 10.8 fl (9.4-12.4); PLATELET COUNT 590 x10^3/uL (163-337); RDW 15.2 % (12.2-16.1)
[2024-09-29 11:44] LABS: INR 1.14 (0.83-1.09); PROTHROMBIN TIME (PATIENT) 12.5 SEC (9.7-13.0)
[2024-09-29 11:51] LABS: POTASSIUM 3.9 mmol/L (3.5-5.1)
[2024-09-29 12:08] LABS: CALCIUM 11.7 mg/dL (8.5-10.1); MAGNESIUM 2.5 mg/dL (1.8-2.4)
[2024-09-29 12:10] LABS: BILIRUBIN,TOTAL 1.1 mg/dL (0.2-1)
[2024-09-29 12:11] LABS: CREATININE 1.8 mg/dL (0.55-1.3); PHOSPHOROUS 4.2 mg/dL (2.5-4.9)
[2024-09-29] MEDS: SODIUM CHLORIDE 1,000 ML IV SCH (14:47)
[2024-09-29] MEDS: SODIUM CHLORIDE 250 ML IV STA (14:47)
[2024-09-29] MEDS: LIDOCAINE PATCH REMOVAL MC SCH (21:08)
[2024-09-29] MEDS: LYTES/YERBA SANTA 60 ML SPRAY MM PRN (22:23)
[2024-09-30] MEDS: LORazepam 2 MG/ML SDV VIAL IVPUSH ONE (02:18)
[2024-09-30 06:45] LABS: ABSOLUTE IMMATURE GRANULOCYTES 0.18 x10^3/uL (0.0-0.031); BASOPHILS # 0.02 x10^3/uL (0.01-0.08); HEMATOCRIT 34.8 % (40.1-51.0); HEMOGLOBIN 10.8 g/dL (13.7-17.5); MEAN CELL VOLUME 91.6 fl (79.0-92.2); MEAN PLT VOLUME 10.3 fl (9.4-12.4); MONOCYTE # 1.09 x10^3/uL (0.30-0.82); MONOCYTE % 5.5 % (5.3-12.2); PLATELET COUNT 509 x10^3/uL (163-337); RDW 15.3 % (12.2-16.1)
[2024-09-30 08:31] LABS: POTASSIUM 3.3 mmol/L (3.5-5.1)
[2024-09-30 08:41] LABS: ALBUMIN 3.5 g/dl (3.4-5.0); CALCIUM 10.3 mg/dL (8.5-10.1)
[2024-09-30 08:42] LABS: MAGNESIUM 2.5 mg/dL (1.8-2.4)
[2024-09-30 08:43] LABS: TOT PROT 8.2 g/dl (6.4-8.2)
[2024-09-30 08:45] LABS: CREATININE 1.3 mg/dL (0.55-1.3)
[2024-09-30] MEDS: POTASSIUM CHLORIDE ORAL LIQUID 20 MEQ/15 ML GT ONE (10:48)
[2024-09-30] MEDS: KCL 10 MEQ IVPB 10 MEQ/100 ML INFUS.BAG IVPB SCH (12:25)
[2024-09-30 17:22] LABS: POTASSIUM 3.7 mmol/L (3.5-5.1)
[2024-09-30 17:23] LABS: BLOOD UREA NITROGEN 36.9 mg/dL (7-18); CALCIUM 10.5 mg/dL (8.5-10.1)
[2024-10-01 08:12] LABS: HEMATOCRIT 33.2 % (40.1-51.0); HEMOGLOBIN 10.3 g/dL (13.7-17.5); MEAN CELL VOLUME 91.5 fl (79.0-92.2); PLATELET COUNT 440 x10^3/uL (163-337); RDW 14.7 % (12.2-16.1)
[2024-10-01 08:22] LABS: ABSOLUTE IMMATURE GRANULOCYTES 0.12 x10^3/uL (0.0-0.031); BASOPHILS # 0.02 x10^3/uL (0.01-0.08); EOSINOPHIL % 0.3 % (0.8-7.0); EOSINOPHILS # 0.04 x10^3/uL (0.04-0.54); HEMATOCRIT 32.5 % (40.1-51.0); HEMOGLOBIN 10.2 g/dL (13.7-17.5); MCHC 31.4 g/dl (32.3-36.5); MEAN CELL VOLUME 91.5 fl (79.0-92.2); MONOCYTE % 5.3 % (5.3-12.2); PLATELET COUNT 426 x10^3/uL (163-337); RDW 14.7 % (12.2-16.1)
[2024-10-01 08:25] LABS: POTASSIUM 3.4 mmol/L (3.5-5.1)
[2024-10-01 08:32] LABS: ALBUMIN 3.2 g/dl (3.4-5.0); BLOOD UREA NITROGEN 38.2 mg/dL (7-18); CALCIUM 10.6 mg/dL (8.5-10.1); MAGNESIUM 2.1 mg/dL (1.8-2.4)
[2024-10-01 08:35] LABS: CREATININE 0.9 mg/dL (0.55-1.3); PHOSPHOROUS 2.6 mg/dL (2.5-4.9)
[2024-10-01 08:37] LABS: BILIRUBIN,TOTAL 0.9 mg/dL (0.2-1); TOT PROT 7.9 g/dl (6.4-8.2)
[2024-10-01] MEDS: KCL 10 MEQ IVPB 10 MEQ/100 ML INFUS.BAG IVPB SCH (10:20)
[2024-10-01] MEDS: POTASSIUM CHLORIDE 40 MEQ in SODIUM CHLORIDE 1,000 ML IV SCH ×2 (15:37→18:20)
[2024-10-01] MEDS: POTASSIUM CHLORIDE 20 MEQ in SODIUM CHLORIDE 1,000 ML IV SCH (15:37)
[2024-10-01] MEDS: PROCHLORPERAZINE INJECTION 10 MG/2 ML VIAL IVPB ONE (21:27)
[2024-10-01] MEDS ORDERED: AMIODARONE HCL 200 MG TABLET PO SCH (22:00)
[2024-10-02] MEDS: AMIODARONE HCL 200 MG TABLET PO SCH (02:23)
[2024-10-02 07:14] LABS: HEMATOCRIT 31.7 % (40.1-51.0); HEMOGLOBIN 9.9 g/dL (13.7-17.5); MCHC 31.2 g/dl (32.3-36.5); MEAN CELL VOLUME 91.6 fl (79.0-92.2); MEAN PLT VOLUME 9.6 fl (9.4-12.4); PLATELET COUNT 390 x10^3/uL (163-337); RDW 14.6 % (12.2-16.1)
[2024-10-02 07:45] LABS: POTASSIUM 3.6 mmol/L (3.5-5.1)
[2024-10-02 07:47] LABS: CALCIUM 9.9 mg/dL (8.5-10.1)
[2024-10-02 07:48] LABS: ALBUMIN 3.1 g/dl (3.4-5.0); BLOOD UREA NITROGEN 32.6 mg/dL (7-18); MAGNESIUM 2.1 mg/dL (1.8-2.4)
[2024-10-02 07:51] LABS: CREATININE 0.9 mg/dL (0.55-1.3)
[2024-10-02 07:53] LABS: BILIRUBIN,TOTAL 0.8 mg/dL (0.2-1); TOT PROT 7.2 g/dl (6.4-8.2)
[2024-10-02] MEDS: TRIMETHOBENZAMIDE HCL 200MG/2ML INJ IM ONE (07:59)
[2024-10-02] MEDS: KCL 10 MEQ IVPB 10 MEQ/100 ML INFUS.BAG IVPB SCH (10:34)
[2024-10-02] MEDS: POTASSIUM CHLORIDE 40 MEQ in SODIUM CHLORIDE 1,000 ML IVPB SCH (10:45)
[2024-10-02] MEDS: IOHEXOL (OMNIPAQUE IV) 350 MG/ML - 100 ML BOTTLE PO ONE (12:08)
[2024-10-02] MEDS: SODIUM CHLORIDE 250 ML IV STA (17:56)
[2024-10-03] MEDS: POTASSIUM CHLORIDE 40 MEQ in SODIUM CHLORIDE 1,000 ML IVPB SCH ×2 (08:38→14:16)
[2024-10-03 11:14] LABS: POTASSIUM 3.6 mmol/L (3.5-5.1)
[2024-10-03 11:23] LABS: CREATININE 0.7 mg/dL (0.55-1.3)
[2024-10-03 11:28] LABS: ALBUMIN 2.6 g/dl (3.4-5.0); BLOOD UREA NITROGEN 23.1 mg/dL (7-18); MAGNESIUM 1.7 mg/dL (1.8-2.4)
[2024-10-03 11:30] LABS: PHOSPHOROUS 1.5 mg/dL (2.5-4.9)
[2024-10-03 11:32] LABS: BILIRUBIN,TOTAL 0.8 mg/dL (0.2-1); TOT PROT 6.7 g/dl (6.4-8.2)
[2024-10-03 12:02] LABS: HEMATOCRIT 30.6 % (40.1-51.0); HEMOGLOBIN 9.1 g/dL (13.7-17.5); MCHC 29.7 g/dl (32.3-36.5); MEAN CELL VOLUME 94.7 fl (79.0-92.2); MEAN PLT VOLUME 10.5 fl (9.4-12.4); PLATELET COUNT 383 x10^3/uL (163-337)
[2024-10-03] MEDS: MAGNESIUM 2GM/50ML STERILE WATER IVPB IVPB ONE (14:19)
[2024-10-03] MEDS: POTASSIUM PHOSPHATE 15 MM in DEXTROSE 5%-WATER - 250 ML IVPB ONE (15:18)
[2024-10-03] MEDS: MIDODRINE HCL 5 MG TABLET PO SCH (17:37)
[2024-10-03] MEDS: AMINO ACIDS 4.25%/D5W 1,000 ML IV SCH (19:55)
[2024-10-04 11:04] LABS: HEMATOCRIT 29.3 % (40.1-51.0); MCHC 30.7 g/dl (32.3-36.5); MEAN CELL VOLUME 94.2 fl (79.0-92.2); MEAN PLT VOLUME 10.4 fl (9.4-12.4); PLATELET COUNT 377 x10^3/uL (163-337); RDW 15.5 % (12.2-16.1)
[2024-10-04 11:33] LABS: POTASSIUM 3.9 mmol/L (3.5-5.1)
[2024-10-04 11:35] LABS: CALCIUM 9.6 mg/dL (8.5-10.1)
[2024-10-04 11:36] LABS: BLOOD UREA NITROGEN 15.6 mg/dL (7-18); MAGNESIUM 2.1 mg/dL (1.8-2.4)
[2024-10-04 11:39] LABS: CREATININE 0.6 mg/dL (0.55-1.3); PHOSPHOROUS 2.1 mg/dL (2.5-4.9)
[2024-10-04 11:41] LABS: BILIRUBIN,TOTAL 0.8 mg/dL (0.2-1); TOT PROT 6.4 g/dl (6.4-8.2)
[2024-10-04 12:14] LABS: ALBUMIN 2.4 g/dl (3.4-5.0)
[2024-10-04] MEDS: NAPH,MB-DB/K PH,MBDB POWDER PACKET PO SCH (17:53)
[2024-10-04] MEDS ORDERED: LEVALBUTEROL HCL 0.31 MG/3 ML VIAL.NEB IH ONE (20:23)
[2024-10-05 07:44] LABS: ABSOLUTE IMMATURE GRANULOCYTES 0.39 x10^3/uL (0.0-0.031); BASOPHILS # 0.02 x10^3/uL (0.01-0.08); EOSINOPHIL % 0.2 % (0.8-7.0); EOSINOPHILS # 0.03 x10^3/uL (0.04-0.54); HEMATOCRIT 30.3 % (40.1-51.0); HEMOGLOBIN 9.1 g/dL (13.7-17.5); MEAN CELL VOLUME 93.2 fl (79.0-92.2); MEAN PLT VOLUME 10.1 fl (9.4-12.4); MONOCYTE # 0.75 x10^3/uL (0.30-0.82); PLATELET COUNT 387 x10^3/uL (163-337); RDW 15.2 % (12.2-16.1)
[2024-10-05 07:54] LABS: POTASSIUM 3.3 mmol/L (3.5-5.1)
[2024-10-05 08:01] LABS: CALCIUM 9.6 mg/dL (8.5-10.1)
[2024-10-05 08:02] LABS: ALBUMIN 2.3 g/dl (3.4-5.0); BLOOD UREA NITROGEN 15.7 mg/dL (7-18); MAGNESIUM 1.8 mg/dL (1.8-2.4)
[2024-10-05 08:05] LABS: CREATININE 0.7 mg/dL (0.55-1.3); PHOSPHOROUS 2.9 mg/dL (2.5-4.9)
[2024-10-05 08:06] LABS: BILIRUBIN,TOTAL 0.7 mg/dL (0.2-1); TOT PROT 6.5 g/dl (6.4-8.2)
[2024-10-05] MEDS: MINERAL OIL ENEMA 133 ML ENEMA RC ONE (17:18)
[2024-10-05] MEDS: KCL 10 MEQ IVPB 10 MEQ/100 ML INFUS.BAG IVPB SCH ×2 (18:37→23:13)
[2024-10-06 08:09] LABS: POTASSIUM 3.7 mmol/L (3.5-5.1)
[2024-10-06 08:11] LABS: CALCIUM 9.6 mg/dL (8.5-10.1)
[2024-10-06 08:12] LABS: ALBUMIN 2.2 g/dl (3.4-5.0); BLOOD UREA NITROGEN 13.5 mg/dL (7-18); MAGNESIUM 1.4 mg/dL (1.8-2.4)
[2024-10-06 08:15] LABS: CREATININE 0.6 mg/dL (0.55-1.3)
[2024-10-06 08:17] LABS: BILIRUBIN,TOTAL 0.4 mg/dL (0.2-1); TOT PROT 6.1 g/dl (6.4-8.2)
[2024-10-06 08:22] LABS: ABSOLUTE IMMATURE GRANULOCYTES 0.14 x10^3/uL (0.0-0.031); BASOPHILS # 0.02 x10^3/uL (0.01-0.08); EOSINOPHIL % 0.9 % (0.8-7.0); EOSINOPHILS # 0.11 x10^3/uL (0.04-0.54); HEMATOCRIT 31.6 % (40.1-51.0); HEMOGLOBIN 9.8 g/dL (13.7-17.5); MEAN CELL VOLUME 91.6 fl (79.0-92.2); MEAN PLT VOLUME 10.3 fl (9.4-12.4); MONOCYTE # 0.79 x10^3/uL (0.30-0.82); MONOCYTE % 6.7 % (5.3-12.2); PLATELET COUNT 405 x10^3/uL (163-337); RDW 14.8 % (12.2-16.1)
[2024-10-06] MEDS ORDERED: ENOXAPARIN NA (PORCINE) 80 MG/0.8 ML DISP.SYRIN SQ SCH (10:00)
[2024-10-06] MEDS: ENOXAPARIN NA (PORCINE) 40 MG/0.4 ML DISP.SYRIN SQ SCH (10:19)
[2024-10-06] MEDS: MAGNESIUM SULFATE IN WATER 2 GM/50 ML IVPB IVPB ONE (10:25)
[2024-10-06 11:21] LABS: POTASSIUM 3.1 mmol/L (3.5-5.1)
[2024-10-06 11:24] LABS: BLOOD UREA NITROGEN 12.2 mg/dL (7-18); CALCIUM 9.7 mg/dL (8.5-10.1); MAGNESIUM 1.6 mg/dL (1.8-2.4)
[2024-10-06 11:28] LABS: CREATININE 0.7 mg/dL (0.55-1.3)
[2024-10-06] MEDS: POTASSIUM CHLORIDE ORAL LIQUID 20 MEQ/15 ML PO ONE (12:16)
[2024-10-06] MEDS: LEVALBUTEROL HCL 0.31 MG/3 ML VIAL.NEB IH SCH (14:35)
[2024-10-07 06:49] LABS: HEMATOCRIT 28.4 % (40.1-51.0); HEMOGLOBIN 8.8 g/dL (13.7-17.5); MEAN CELL VOLUME 89.6 fl (79.0-92.2); PLATELET COUNT 389 x10^3/uL (163-337); RDW 14.6 % (12.2-16.1)
[2024-10-07 07:05] LABS: POTASSIUM 3.5 mmol/L (3.5-5.1)
[2024-10-07 07:07] LABS: CALCIUM 9.5 mg/dL (8.5-10.1)
[2024-10-07 07:08] LABS: ALBUMIN 2.1 g/dl (3.4-5.0); BLOOD UREA NITROGEN 9.4 mg/dL (7-18); MAGNESIUM 1.7 mg/dL (1.8-2.4)
[2024-10-07 07:11] LABS: CREATININE 0.7 mg/dL (0.55-1.3)
[2024-10-07 07:13] LABS: BILIRUBIN,TOTAL 0.4 mg/dL (0.2-1); TOT PROT 6.1 g/dl (6.4-8.2)
[2024-10-07] MEDS: metoPROLOL SUCCINATE 25 MG TAB.SR.24H (FP) PO ONE (12:04)
[2024-10-07 15:09] VITALS: RESP 18
[2024-10-07] MEDS: MAGNESIUM SULFATE IN WATER 2 GM/50 ML IVPB IVPB ONE (15:16)
[2024-10-07 18:14] VITALS: BP 127/81; PULSE 62; TEMP 97.7
[2024-10-08] MEDS ORDERED: metoPROLOL SUCCINATE 25 MG TAB.SR.24H (FP) PO SCH (10:00)
[2024-10-08] MEDS ORDERED: AMIODARONE HCL 200 MG TABLET PO SCH ×2 (10:00)
== END 2024-10-07 20:25 | disposition home or self-care (01) | DRG 247 ==
LOC: JER 17:48 → JERBED 21:21 → J2W 09-18 00:15 → J4W 09-30 10:41
PROVIDERS: ADMIT Internal Medicine; ATTEND Internal Medicine
PROC: 0D9670Z Drainage of Stomach with Drainage Device, Via Natural or Artificial Opening (ICD-10-PCS; principal; 2024-09-17)
DX: K56.609 Unspecified intestinal obstruction, unspecified as to partial versus complete obstruction (principal); N31.9 Neuromuscular dysfunction of bladder, unspecified; G82.20 Paraplegia, unspecified; N39.0 Urinary tract infection, site not specified; J69.0 Pneumonitis due to inhalation of food and vomit; J96.01 Acute respiratory failure with hypoxia; K59.00 Constipation, unspecified; N20.0 Calculus of kidney; N13.30 Unspecified hydronephrosis; E87.1 Hypo-osmolality and hyponatremia; E87.20 Acidosis, unspecified; E86.0 Dehydration; D64.9 Anemia, unspecified; B96.5 Pseudomonas (aeruginosa) (mallei) (pseudomallei) as the cause of diseases classified elsewhere; E87.6 Hypokalemia; E83.42 Hypomagnesemia; L89.153 Pressure ulcer of sacral region, stage 3; J98.11 Atelectasis; I47.10 Supraventricular tachycardia, unspecified; J94.2 Hemothorax; N17.9 Acute kidney failure, unspecified; E83.52 Hypercalcemia
CPT/HCPCS: 0241U-QW; 36415; 36600; 71045-TC-FY; 74018-TC-FY; 74019-TC-FY; 74177-TC; 76705-TC; 80048; 80053; 80061; 81003; 82550; 82803; 82962; 83036; 83605; 83690; 83735; 83880; 83930; 83935; 83970; 84100; 84132; 84443; 84484; 85025; 85027; 85610; 85730; 87040; 87070; 87086; 87186; 87205; 93005; 93010; 93306-TC; 94640; 99291; E0186; J0131; J0282; J0475; Q9967